=== PATIENT | female | born 1945 | race African-American/Black ===

== ENCOUNTER 2017-11-16 01:45 | Inpatient (IN) | payer OTHER ==
--- NOTE | 2017-11-16 01:50 | PDOC ---
History of Present Illness - General History Source: Patient, Family Exam Limitations: No Limitations - History of Present Illness Initial Comments: 11/16/17 02:06 The patient is a 72 year old female with a significant PMH of stage IV brain CA (recently treated in [place]) and breast CA who presents to the emergency department with slightly slurred speech and inability to ambulate over the past 2 days. The patients daughter reports bringing the patient from [place] to the patients other daughters house, and she noticed that the patient cannot walk or move her left side. The patients daughter also notes a low-grade fever and cough. The patient reports she is not currently experiencing any pain. The patient denies chest pain, shortness of breath, headache and dizziness. Denies chills, nausea, vomit, diarrhea and constipation. Denies dysuria, frequency, urgency and hematuria. Allergies: NKA Past surgical history: None reported. Social history: No reported cigarette, alcohol, or drug use. PCP: Dr. Magen Rodriguez <Daniel Mclean - Last Filed: 11/16/17 03:34> - General History Source: Family <CheyenneAshish - Last Filed: 11/16/17 19:30> - General Stated Complaint: WEAKNESS Time Seen by Provider: 11/16/17 01:49 NIH Stroke Scale - Last Known Well Date/Time & Onset Date Last Known Well: 11/15/17 Time Last Known Well: 00:00 - Initial Evaluation Level of consciousness: Alert Ask patient the month and their age: Answers one correctly Ask patient to open & close eyes; make fist and let go: Obeys both correctly Best gaze (horizontal eye movement): Normal Visual field testing: Partial hemianopia Facial paresis (Show teeth/raise eyebrows/close eyes tight): Normal symmetrical movement Motor Function: Left Arm: No movement Motor Function: Right Arm: Normal (extends arm 90 (or 45) degrees for 10 seconds without drift Motor Function: Left Leg: No movement Motor Function: Right Leg: Normal (extends leg 30 degrees for 5 seconds without drift) Limb Ataxia: Present in one limb Sensory(Use pinprick test arms,legs,trunk,face/side to side): Mild to moderate decrease in sensation Best language (Describe picture, name items, read sentences): Mild to moderate aphasia Dysarthria (read several words): Mild to moderate slurring of words Extinction and Inattention: Inattention or extinction bilaterally to one of the sensory modalities - Total Score NIH Stroke Scale Score: 15 <Ashish Quinn - Last Filed: 11/16/17 19:30> tPA Exclusion checklist 3-4.5h - Time Elapsed Date last known well: 11/15/17 Time last known well: 00:00 Elaspsed time: 1 Day(s) and 19 Hour(s) and 29 Minutes - Exclusion Criteria 3-4.5 hr SBP greater than 185 or DBP greater than 110mmHg despite tx: No Recent IC/spinal surgery,head trauma or stroke<3mos.: No Hx IC hemorrhage, IC neoplasm, AV malformation or aneurysm: No Active internal bleeding: No Blding diathesis(low plt ct, inc PTT,INR>1.7 or use of NOAC): No Symptoms suggest subarachnoid hemorrhage: No CT demonstrates multilobar infarct(>1/3 cerebral hemiphere): No Arterial puncture at noncompressible site in previous 7 days: No Blood glucose concentration less than 50mg/dL (2.7mmol/L): No - Relative Exclusion Criteria 3-4.5 hr Life expectancy <1 yr or severe co-morbid illness: No : No Patient/family refused: No Rapid improvement: No Stroke severity too mild: No Recent acute CA (w/in previous 3 months): No Seizure at onset with postictal residual neuro impairments: No Major surgery or serious trauma w/in previous 14 days: No Recent GI or hemorrhage (w/in previous 21 days): No - Add'l Relative Exclusion 3-4.5 hr Age > 80: No Hx of both diabetes AND prior ischemic stroke: No Taking an oral anticoagulant regardless of INR: No NIHSS >25: No - Ineligibility reason(s) Reasons No tPA given: Outside of window - delayed arrival <Ashish Quinn - Last Filed: 11/16/17 19:30> Past History <Daniel Mclean - Last Filed: 11/16/17 03:34> <Ashish Quinn - Last Filed: 11/16/17 19:30> - Past Medical History Allergies/Adverse Reactions: Allergies Allergy/AdvReac Type Severity Reaction Status Date / Time No Known Allergies Allergy Verified 11/16/17 02:25 Home Medications: Ambulatory Orders Dexamethasone [Decadron -] 4 mg PO BID 11/16/17 Phenytoin Na Extended [Dilantin -] 200 mg PO BID 11/16/17 Sennosides/Docusate Sodium [Senexon-S Tablet] 1 each PO PRN PRN 11/16/17 levETIRAcetam [Keppra -] 1,500 mg PO BID 11/16/17 Review of Systems - Review of Systems Able to Perform ROS?: Yes Comments:: 11/16/17 02:07 CONSTITUTIONAL: Absent: fever, chills, diaphoresis, generalized weakness, malaise, loss of appetite HEENT: Absent: rhinorrhea, nasal congestion, throat pain, throat swelling, difficulty swallowing, mouth swelling, ear pain, eye pain, visual Changes CARDIOVASCULAR: Absent: chest pain, syncope, palpitations, irregular heart rate, lightheadedness , peripheral edema RESPIRATORY: Absent: cough, shortness of breath, dyspnea with exertion, orthopnea, wheezing, stridor, hemoptysis GASTROINTESTINAL: Absent: abdominal pain, abdominal distension, nausea, vomiting, diarrhea, constipation, melena, hematochezia GENITOURINARY: Absent: dysuria, frequency, urgency, hesitancy, hematuria, flank pain, genital pain MUSCULOSKELETAL: Absent: myalgia, arthralgia, joint swelling SKIN: Absent: rash, itching, pallor HEMATOLOGIC/IMMUNOLOGIC: Absent: easy bleeding, easy bruising, lymphadenopathy, frequent infections ENDOCRINE: Absent: unexplained weight gain, unexplained weight loss, heat intolerance, cold intolerance NEUROLOGIC: (+) Inability to ambulate or move left side. Absent: headache, focal paresthesias, dizziness, seizure, mental status changes , bladder or bowel incontinence PSYCHIATRIC: Absent: anxiety, depression, suicidal or homicidal ideation, hallucinations. <Daniel Mclean - Last Filed: 11/16/17 03:34> *Physical Exam - Physical Exam Comments: 11/16/17 02:07 GENERAL: Well developed, well nourished. Awake and alert. No acute distress. HEENT: Normocephalic, atraumatic. PERRLA, EOMI. No conjunctival pallor. Sclera are non- icteric. Moist mucous membranes. Oropharynx is clear. NECK: Supple. Full ROM. No JVD. Carotid pulses 2+ and symmetric, without bruits. No thyromegaly. No lymphadenopathy. CARDIOVASCULAR: Regular rate and rhythm. No murmurs, rubs, or gallops. Distal pulses are 2+ and symmetric. PULMONARY: No evidence of respiratory distress. Lungs clear to auscultation bilaterally. No wheezing, rales or rhonchi. ABDOMINAL: Soft. Non-tender. Non-distended. No rebound or guarding. No organomegaly. Normoactive bowel sounds. MUSCULOSKELETAL Normal range of motion at all joints. No bony deformities or tenderness. No CVA tenderness. EXTREMITIES: No cyanosis. No clubbing. No edema. No calf tenderness. SKIN: Warm and dry. Normal capillary refill. No rashes. No jaundice. NEUROLOGICAL: (+) Slight slurred speech. (+) Complete left upper and lower extremity hemiplegia. 4/5 strength in right upper and right lower extremities. No facial asymmetry. Alert, awake, appropriate. PSYCHIATRIC: Cooperative. Good eye contact. Appropriate mood and affect. <Daniel Mclean - Last Filed: 11/16/17 03:34> Heart Score/ECG Review #1 11/16/17 02:09 Vent rate 94 bpm Normal sinus rhythm Possible left atrial enlargement Septal infarct, age undetermined Abnormal ECG <Daniel Mclean - Last Filed: 11/16/17 03:34> ED Treatment Course - LABORATORY CBC & Chemistry Diagram: 11/16/17 02:00 11/16/17 02:00 <Daniel Mclean - Last Filed: 11/16/17 03:34> - LABORATORY CBC & Chemistry Diagram: 11/16/17 02:00 11/16/17 02:00 <Ashish Quinn - Last Filed: 11/16/17 19:30> Medical Decision Making - Medical Decision Making 11/16/17 03:35 on call Neuro paged, awaiting callback. <Daniel Mclean - Last Filed: 11/16/17 03:34> - Medical Decision Making 11/16/17 19:28 Dr. Quinn: The scribe's documentation has been prepared under my direction and personally reviewed by me in its entirery. I confirm that the note above accurately reflects all work, treatment, procedures, and medical decision making performed by me. <Ashish Quinn - Last Filed: 11/16/17 19:30> *DC/Admit/Observation/Transfer - Attestations Scribe Attestion: 11/16/17 02:07 Documentation prepared by Daniel Mclean, acting as medical office administrator for Ashish Quinn DO. <Daniel Mclean - Last Filed: 11/16/17 03:34> - Discharge Dispostion Admit: Yes <Ashish Quinn - Last Filed: 11/16/17 19:30> Diagnosis at time of Disposition: Cerebrovascular accident (CVA) - Discharge Dispostion Condition at time of disposition: Stable
[2017-11-16 02:25] LABS: INR 1.04 (0.82-1.09); PROTHROMBIN TIME (PATIENT) 11.7 SEC (9.98-11.88)
[2017-11-16] MEDS: SODIUM CHLORIDE 1,000 ML IV SCH ×2 (02:26→09:49)
[2017-11-16 02:27] VITALS: BMI 21.4
[2017-11-16 02:41] LABS: BASO % 0.6 % (0-2.0); HEMATOCRIT 44.7 % (32.4-45.2); HEMOGLOBIN 15.3 GM/dL (10.7-15.3); LYMPH % 20.6 % (8-40); MCH 31.9 pg (25.7-33.7); MCHC 34.2 g/dl (32.0-36.0); MEAN CELL VOLUME 93.3 fl (80-96); MONO % 12.2 % (3.8-10.2); NEUT % 66.6 % (42.8-82.8); RBC 4.79 M/mm3 (3.60-5.2); RDW 13.6 % (11.6-15.6)
[2017-11-16 02:52] LABS: ALBUMIN 3.7 g/dl (3.4-5.0); ANION GAP 10 (8-16); BLOOD UREA NITROGEN 11 mg/dL (7-18); CALCIUM 8.3 mg/dL (8.5-10.1); CHLORIDE 106 mmol/L (98-107); CHOLESTEROL 231 mg/dL (50-200); CO2 29 mmol/L (21-32); CREATININE 0.8 mg/dL (0.55-1.02); GLUCOSE,RANDOM 96 mg/dL (74-106); LDL CHOLESTEROL (ONLY SJRH) 102 mg/dL (5-100); SGOT/AST 18 U/L (15-37); SGPT/ALT 24 U/L (12-78); SODIUM 145 mmol/L (136-145); TOT PROT 7.1 g/dl (6.4-8.2); TRIGLYCERIDES 65 mg/dL (35-160)
[2017-11-16 02:53] LABS: ALK PHOS 109 U/L (45-117); BILIRUBIN,TOTAL < 0.1 mg/dL (0.2-1.0); HDL CHOLESTEROL 118 mg/dL (40-60)
[2017-11-16] MEDS ORDERED: ONDANSETRON 4 MG/2 ML VIAL IVPUSH STA (03:11)
[2017-11-16] MEDS ORDERED: morphine CARPU-JECT 2 MG/1 ML DISP.SYRIN IVPUSH ONE (03:11)
[2017-11-16] MEDS ORDERED: ACETAMINOPHEN 1000 MG/100 ML VIAL (NON FORMULARY) IVPB ONE (03:11)
[2017-11-16] MEDS ORDERED: MORPHINE SULFATE 10 MG/1 ML *VIAL ONE (03:18)
[2017-11-16] MEDS ORDERED: ONDANSETRON 4 MG/2 ML VIAL ONE (03:18)
[2017-11-16] MEDS ORDERED: ACETAMINOPHEN INJECTION 100 ML IVPB ONE (03:18)
[2017-11-16] MEDS ORDERED: levETIRAcetam 500 MG/5 ML INJECTION VIAL IVPB ONE ×2 (03:18→03:36)
[2017-11-16] MEDS ORDERED: PHENYTOIN SODIUM 100 MG/2 ML VIAL IVPB ONE (03:19)
[2017-11-16] MEDS ORDERED: ASPIRIN 81 MG CHEWABLE TABLETS PO ONE (03:30)
[2017-11-16] MEDS ORDERED: PHENYTOIN SODIUM 100 MG/2 ML VIAL ONE (03:36)
[2017-11-16] MEDS ORDERED: ASPIRIN COATED 81 MG TABLET.EC ONE (03:37)
[2017-11-16 03:57] LABS: MEAN PLT VOLUME 7.2 fl (7.5-11.1)
[2017-11-16 03:58] LABS: PLATELET COUNT 162 K/MM3 (134-434)
--- NOTE | 2017-11-16 04:18 | PN ---
Teaching Attending Note Name of Resident: Bassem Iyer ATTENDING PHYSICIAN STATEMENT I saw and evaluated the patient. I reviewed the resident's note and discussed the case with the resident. I agree with the resident's findings and plan as documented. SUBJECTIVE: 72 F w pmhx. of Brain ca and breasr ca who presents with slurred speech and inability to amulate. This has been happening over coarse of 2 days. also with fever as per daughter and cough. Also pt. cannot move L. side. Upon arrival to bedside, no family present. Pt. cannot speak. OBJECTIVE: Physical: VS: Vital Signs Period Temp Pulse Resp BP Sys/Levin Pulse Ox Last 24 Hr 100.5 F 91 14 169/92 98 GEN: NAD, Resting in bed, AA0X0 HEENT: NCAT, PERRL, Throat w/o erythema or exudates, L. Facial droop CARD: RRR S1, S2 RESP: CTAB ABD: Bsx4, Surgical scar EXT: - C/C/E, Pt. cannot move L. side NEURO: Cannot verbalize, Cannot move R. Side CBCD WBC 5.0 K/mm3 (4.0-10.0) 11/16/17 02:00 RBC 4.79 M/mm3 (3.60-5.2) 11/16/17 02:00 Hgb 15.3 GM/dL (10.7-15.3) 11/16/17 02:00 Hct 44.7 % (32.4-45.2) 11/16/17 02:00 MCV 93.3 fl (80-96) 11/16/17 02:00 MCHC 34.2 g/dl (32.0-36.0) 11/16/17 02:00 RDW 13.6 % (11.6-15.6) 11/16/17 02:00 Plt Count 162 K/MM3 (134-434) 11/16/17 02:00 MPV 7.2 fl (7.5-11.1) L 11/16/17 02:00 CMP Sodium 145 mmol/L (136-145) 11/16/17 02:00 Potassium 4.0 mmol/L (3.5-5.1) 11/16/17 02:00 Chloride 106 mmol/L (98-107) 11/16/17 02:00 Carbon Dioxide 29 mmol/L (21-32) 11/16/17 02:00 Anion Gap 10 (8-16) 11/16/17 02:00 BUN 11 mg/dL (7-18) 11/16/17 02:00 Creatinine 0.8 mg/dL (0.55-1.02) 11/16/17 02:00 Creat Clearance w eGFR > 60 (>60) 11/16/17 02:00 Random Glucose 96 mg/dL (74-106) 11/16/17 02:00 Calcium 8.3 mg/dL (8.5-10.1) L 11/16/17 02:00 Total Bilirubin < 0.1 mg/dL (0.2-1.0) L 11/16/17 02:00 AST 18 U/L (15-37) 11/16/17 02:00 ALT 24 U/L (12-78) 11/16/17 02:00 Alkaline Phosphatase 109 U/L (45-117) 11/16/17 02:00 Total Protein 7.1 g/dl (6.4-8.2) 11/16/17 02:00 Albumin 3.7 g/dl (3.4-5.0) 11/16/17 02:00 CARDIAC ENZYMES Creatine Kinase 70 IU/L (26-192) 11/16/17 02:00 Troponin I < 0.02 ng/ml (0.00-0.05) 11/16/17 02:00 CT HEAD: R. Craniatomy, encephalopmalacia possible chronic calcifications cannot exclude acute hematomas, no aucte infarc 11/16/17 02:09 Vent rate 94 bpm Normal sinus rhythm Possible left atrial enlargement Septal infarct, age undetermined Abnormal ECG ASSESSMENT AND PLAN: 72 F with hx. of brain/breast ca with inability to move her L.side and slurred speech, 1.) CVA/TIA - MRI Brain wo con - ? Acute Hematomas vs. calcifications, FU for final read on CT - Echo/Carotd US - TSH, B12, Folate, ESR - Neuro Consult - Lipid Panel/A1c - PT/OT - IVF gentle - Statin - NPO until speech and swallow - ? Acute Hematomas on CT- Hold off on ASA until repeat 2.) Hx. of Brain Ca - Obtain records 3.) Dvt Ppx - SCDS Place in Stroke Tele
--- NOTE | 2017-11-16 04:22 | HP ---
CHIEF COMPLAINT: slurred speech, L sided weakness x 2 days PCP: HISTORY OF PRESENT ILLNESS: 72 y/o F with PMH stage 4 brain CA (Tx [place]), breast CA, past CVA s/p R sided craniotomy (with residual L sided weakness), who presents to the ED with slurred speech and increased L sided weakness over the past two days. Unable to obtain adequate hx from patient. As per ED staff, pt was in [place] with one of her daughters and was dropped off at her other daughter's home. She had been unable to ambulate for two days, and also had slurred speech and increased weakness in her LUE and LLE. During this time, pt has also c/o subjective fever and productive cough. Pt denied other physical complaints such as SOB, or changes in urinary or bowel function. ER course was notable for: (1) Febrile 100.5F (2) Head CT non-con: cannot exclude tiny acute hematomas (3) Aspirin (4) Keppra, dilantin (5) Morphine, zofran Recent Travel: none PAST MEDICAL HISTORY: as above PAST SURGICAL HISTORY: s/p R sided craniotomy Social History: Smoking:denies Alcohol: denies Drugs: denies Family History: unable to obtain d/t pt condition Allergies No Known Allergies Allergy (Verified 11/16/17 02:25) HOME MEDICATIONS: Home Medications Medication Instructions Recorded Dexamethasone [Decadron -] 4 mg PO BID 11/16/17 Phenytoin Na Extended [Dilantin -] 200 mg PO BID 11/16/17 Sennosides/Docusate Sodium 1 each PO PRN PRN 11/16/17 [Senexon-S Tablet] levETIRAcetam [Keppra -] 1,500 mg PO BID 11/16/17 REVIEW OF SYSTEMS CONSTITUTIONAL: +fever Absent: fever, chills, diaphoresis, generalized weakness, malaise, loss of appetite, weight change HEENT: Absent: rhinorrhea, nasal congestion, throat pain, throat swelling, difficulty swallowing, mouth swelling, ear pain, eye pain, visual changes CARDIOVASCULAR: Absent: chest pain, syncope, palpitations, irregular heart rate, lightheadedness , peripheral edema RESPIRATORY: +cough Absent: cough, shortness of breath, dyspnea with exertion, orthopnea, wheezing, stridor, hemoptysis GASTROINTESTINAL: Absent: abdominal pain, abdominal distension, nausea, vomiting, diarrhea, constipation, melena, hematochezia GENITOURINARY: Absent: dysuria, frequency, urgency, hesitancy, hematuria, flank pain, genital pain MUSCULOSKELETAL: Absent: myalgia, arthralgia, joint swelling, back pain, neck pain SKIN: Absent: rash, itching, pallor HEMATOLOGIC/IMMUNOLOGIC: Absent: easy bleeding, easy bruising, lymphadenopathy, frequent infections ENDOCRINE: Absent: unexplained weight gain, unexplained weight loss, heat intolerance, cold intolerance NEUROLOGIC: +LUE, LLE weakness, focal weakness Absent: headache, focal weakness or paresthesias, dizziness, unsteady gait, seizure, mental status changes, bladder or bowel incontinence PSYCHIATRIC: Absent: anxiety, depression, suicidal or homicidal ideation, hallucinations. PHYSICAL EXAMINATION Vital Signs - 24 hr 11/16/17 02:25 Temperature 100.5 F H Pulse Rate 91 H Respiratory 14 Rate Blood Pressure 169/92 O2 Sat by Pulse 98 Oximetry (%) GENERAL: Resting in bed, extremely lethargic. In no acute distress. Unable to answer questions HEAD: scar from past craniotomy - R EYES: Pupils with sluggish rxn to light, extraocular movements intact, sclera anicteric EARS, NOSE, THROAT: Ears normal, nares patent, oropharynx clear without exudates NECK: Normal range of motion, supple LUNGS: coarse breath sounds appreciated b/l. No accessory muscle use. HEART: tachycardic rate and rhythm, normal S1 and S2 without murmur, rub or gallop. ABDOMEN: Soft, nontender, not distended, normoactive bowel sounds, no guarding, no rebound, no masses. + ventral scar . UPPER EXTREMITIES: 2+ radial pulses. No cyanosis. No clubbing. No peripheral edema. LOWER EXTREMITIES: 2+ posterior tibial pulses, . No calf tenderness. No peripheral edema. NEUROLOGICAL: difficult to assess as pt unable to answer questions. However able to follow commands. Motor strength 4/5 RUE, RLE. 2/5 LUE, LLE. Sensation intact. Laboratory Results 11/16/17 11/16/17 11/16/17 01:55 02:00 02:00 WBC 5.0 RBC 4.79 Hgb 15.3 Hct 44.7 MCV 93.3 MCH 31.9 MCHC 34.2 RDW 13.6 Plt Count 162 MPV 7.2 L Neutrophils % 66.6 Lymphocytes % 20.6 Monocytes % 12.2 H Eosinophils % 0.0 Basophils % 0.6 PT with INR 11.70 INR 1.04 Sodium Random Glucose Lactic Acid 1.9 Antibody Screen 11/16/17 11/16/17 11/16/17 02:00 02:20 02:45 Eosinophils % PT with INR INR Sodium 145 Potassium 4.0 Chloride 106 Carbon Dioxide 29 Anion Gap 10 BUN 11 Creatinine 0.8 Creat Clearance w eGFR > 60 POC Glucometer 95.33333 Random Glucose 96 Lactic Acid Calcium 8.3 L Total Bilirubin < 0.1 L AST 18 ALT 24 Alkaline Phosphatase 109 Creatine Kinase 70 Troponin I < 0.02 Total Protein 7.1 Albumin 3.7 Triglycerides 65 Cholesterol 231 H Total LDL Cholesterol 102 H HDL Cholesterol 118 H IMAGING -CT head - non con: initial report- encephalomalacia R parietal lobe extending into R internal capsule. Few small hyperdensities near the areas of encephalomalacia may represent chronic calcifications, but cannot exclude tiny acute hematomas. Extensive white matter hypodensity R hemisphere, question post- treatment changes. No acute territorial infarct. Age related involutional changes. Essentially clear visualized paranasal sinuses. Will await official report ASSESSMENT/PLAN: 72 y/o F with PMH stage 4 brain CA (Tx [place]), breast CA, past CVA s/p R sided craniotomy (with residual L sided weakness), who presents to the ED with slurred speech and increased L sided weakness over the past two days. Pt admitted to [facility] for further evaluation of CVA. #CVA -With initial slurred speech, increased L sided weakness over the past 2 days -Neuro checks q2h -Elevate HOB -PT evaluation -Seizure precautions - padding -Speech & swallow eval -Started on lipitor 40mg PO qHS -Avoid aspirin, as pt with potential hematomas -F/u TSH, Folate, B12, ESR -F/u ECHO -F/u Carotid US -F/u A1c -F/u MRI brain w/o contrast for further eval #Hx stage 4 brain CA, breast CA -Will need old records - [place] #F/E/N -Gentle hydration IVF 42 cc/hr -Continue to monitor electrolytes. Next CBC, BMP for 3/15 d/t recent bleed -NPO until speech and swallow eval #PPX DVT: SCD's #Dispo Continued monitoring on stroke tele Visit type - Emergency Visit Emergency Visit: Yes Care time: The patient presented to the Emergency Department on the above date and was hospitalized for further evaluation of their emergent condition. - New Patient This patient is new to me today: Yes Date on this admission: 11/16/17 - Critical Care Critical Care patient: No Hospitalist Screening - Colonoscopy Questionnaire Colonoscopy Questionnaire: Colonoscopy Questionnaire - Patient: 50 - 75 years old and never had a screening colonoscopy: Unknown History of colon or rectal polyps, or CA: Unknown History of IBD, Crohn's disease or UC: Unknown History of abdominal radiation therapy as a child: Unknown - Relative: 1 with colon or rectal CA, or polyps at age 60 or younger: Unknown Colon or rectal CA diagnosed at age 45 or younger: Unknown Multiple relatives with colon or rectal CA: Unknown - Outcome: Screening Result: Negative Screen
[2017-11-16 05:51] LABS: URINE APPEARANCE CLEAR; URINE BILIRUBIN NEGATIVE (NEGATIVE); URINE BLOOD NEGATIVE (NEGATIVE); URINE COLOR STRAW; URINE GLUCOSE (UA) NEGATIVE (NEGATIVE); URINE KETONE NEGATIVE (NEGATIVE); URINE LEUK ESTERASE NEGATIVE (NEGATIVE); URINE NITRITE NEGATIVE (NEGATIVE); URINE PROTEIN NEGATIVE (NEGATIVE); URINE UROBILINOGEN NEGATIVE mg/dL (0.2-1.0)
[2017-11-16] MEDS: ATORVASTATIN CA 40 MG TABLET (FP) PO SCH (09:44)
--- NOTE | 2017-11-16 10:32 | CON.NEURO ---
Consult - History of Present Illness History of Present Illness: 72 y/o F with PMH stage 4 brain CA (Tx [place]), breast CA, past CVA s/p R sided craniotomy (with residual L sided weakness), who presents to the ED with slurred speech and increased L sided weakness over the past two days. Unable to obtain adequate hx from patient. As per ED staff, pt was in [place] with one of her daughters and was dropped off at her other daughter's home. She had been unable to ambulate for two days, and also had slurred speech and increased weakness in her LUE and LLE. During this time, pt has also c/o subjective fever and productive cough. Pt denied other physical complaints such as SOB, or changes in urinary or bowel function. pt sleepy and poorly arousable. on seizure RX although no clear recent seziure. CT HD : IMPRESSION: Lesions in the right frontal lobe and right gangliocapsular region are probably metastatic lesions given the provided clinical history of stage IV breast cancer. Extensive surrounding vasogenic edema with right cerebral sulcal effacement and 1-2 mm right to left midline shift. No herniation pattern. No hydrocephalus. Further evaluation with contrast-enhanced MRI brain is recommended. These findings were discussed with Dr. Sommers at approximately 10: 00 AM on 11/16/2017. - History Source History Provided By: Medical Record - Alcohol/Substance Use Hx Alcohol Use: No - Smoking History Smoking history: Never smoked Have you smoked in the past 12 months: No Home Medications - Allergies Allergies/Adverse Reactions: Allergies Allergy/AdvReac Type Severity Reaction Status Date / Time No Known Allergies Allergy Verified 11/16/17 02:25 - Home Medications Home Medications: Ambulatory Orders Dexamethasone [Decadron -] 4 mg PO BID 11/16/17 Phenytoin Na Extended [Dilantin -] 200 mg PO BID 11/16/17 Sennosides/Docusate Sodium [Senexon-S Tablet] 1 each PO PRN PRN 11/16/17 levETIRAcetam [Keppra -] 1,500 mg PO BID 11/16/17 Physical Exam-Neuro Vital Signs: Vital Signs Temperature 98.6 F 11/16/17 08:52 Pulse Rate 80 11/16/17 08:52 Respiratory Rate 16 11/16/17 08:52 Blood Pressure 135/83 11/16/17 08:52 O2 Sat by Pulse Oximetry (%) 97 11/16/17 08:52 Labs: CBC, BMP 11/16/17 02:00 11/16/17 02:00 INR, PTT INR 1.04 (0.82-1.09) 11/16/17 02:00 - Neuro Exam Level Of Consciousness: Yes: Sedated (pt sleepy , and poorly arousable , nonverbal , does not answer name or follow commands, left gaze, and left hemiparesis ), Stuporous Imaging - Results Cat Scan: Report Reviewed, Image Reviewed Problem List - Problems (1) Brain malignant neoplasm Code(s): C71.9 - MALIGNANT NEOPLASM OF BRAIN, UNSPECIFIED (2) Left hemiparesis Code(s): G81.94 - HEMIPLEGIA, UNSPECIFIED AFFECTING LEFT NONDOMINANT SIDE (3) Cerebrovascular accident (CVA) Code(s): I63.9 - CEREBRAL INFARCTION, UNSPECIFIED Assessment/Plan 72 y/o F with PMH stage 4 brain CA (Tx [place]), breast CA, past CVA s/p R sided craniotomy (with residual L sided weakness), who presents to the ED with slurred speech and increased L sided weakness over the past two days. Unable to obtain adequate hx from patient. As per ED staff, pt was in [place] with one of her daughters and was dropped off at her other daughter's home. She had been unable to ambulate for two days, and also had slurred speech and increased weakness in her LUE and LLE. During this time, pt has also c/o subjective fever and productive cough. Pt denied other physical complaints such as SOB, or changes in urinary or bowel function. pt sleepy and poorly arousable. on seizure RX although no clear recent seizure. CT HD : IMPRESSION: Lesions in the right frontal lobe and right gangliocapsular region are probably metastatic lesions given the provided clinical history of stage IV breast cancer. Extensive surrounding vasogenic edema with right cerebral sulcal effacement and 1-2 mm right to left midline shift. No herniation pattern. No hydrocephalus. Further evaluation with contrast-enhanced MRI brain is recommended. encephalopathy-- ? from progression of brain cancer vs seizure vs metabolic vs fever give decardon 10mg x1 and increase to 4mg q6 MRI BRAIN WITH BART on dilantin 200BID and [id number]-- check dilantin level fever [place] old records given poor mental state low threshold for ICU care gaols of care to be discussed with family Dr Browne
[2017-11-16] MEDS ORDERED: DEXAMETHASONE SOD PHOSPHATE 4 MG/1 ML VIAL IVPB ONE (10:41)
--- NOTE | 2017-11-16 10:49 | EKG ---
Test Reason : Blood Pressure : / mmHG Vent. Rate : 094 BPM Atrial Rate : 094 BPM P-R Int : 152 ms QRS Dur : 088 ms QT Int : 330 ms P-R-T Axes : 065 085 065 degrees QTc Int : 412 ms NORMAL SINUS RHYTHM POSSIBLE LEFT ATRIAL ENLARGEMENT SEPTAL INFARCT , AGE UNDETERMINED ABNORMAL ECG NO PREVIOUS ECGS AVAILABLE Confirmed by ANKUR CASTAÑEDA MD ([id number]) on 11/16/2017 10:49:01 AM Referred By: Confirmed By:AKNUR CASTAÑEDA MD
--- NOTE | 2017-11-16 11:01 | PN ---
Physical Exam: SUBJECTIVE: Patient seen and examined in AM. lethargic, poorly responsive to tactile/verbal stimuli. OBJECTIVE: Vital Signs Period Temp Pulse Resp BP Sys/Levin Pulse Ox Last 24 Hr 98.6 F-100.5 F 71-91 14-18 127-169/74-92 97-100 GENERAL: lying in bed, lethargic, non-verbal, responding to simple commands HEENT: PERRL, sclera anicteric, conjunctiva clear, oropharynx clear without exudates, MMM NECK: supple, no cervical LAD LUNGS: CTAB HEART: rrr, normal s1/s2, no m/r/g ABDOMEN: Soft, nontender, nondistended, normoactive bowel sounds EXTREMITIES: 2+ DP pulses, wwp, no edema NEUROLOGICAL: opens eyes to verbal/tactile stimulation, left facial droop, slurred speech, L hemiparesis CBC, BMP 11/16/17 02:00 11/16/17 02:00 IMAGING: Head CT: MPRESSION: Lesions in the right frontal lobe and right gangliocapsular region are probably metastatic lesions given the provided clinical history of stage IV breast cancer. Extensive surrounding vasogenic edema with right cerebral sulcal effacement and 1-2 mm right to left midline shift. No herniation pattern. No hydrocephalus. Further evaluation with contrast-enhanced MRI brain is recommended. Active Medications Generic Name Dose Route Start Last Admin Trade Name Freq PRN Reason Stop Dose Admin Atorvastatin Calcium 40 mg 11/16/17 10:00 11/16/17 09:44 Lipitor - PO Not Given DAILY LENNY Dexamethasone Sodium Phosphate 10 mg 11/16/17 10:41 Decadron Injection - IVPB 11/16/17 10:42 ONCE ONE Sodium Chloride 1,000 mls @ 42 mls/hr 11/16/17 02:00 11/16/17 09:49 Normal Saline - IV 42 mls/hr ASDIR LENNY Administration Levetiracetam 1,500 mg 11/16/17 10:45 Keppra Injection - IVPB BID LENNY Phenytoin Sodium 200 mg 11/16/17 10:45 Dilantin Injection - IVPB BID LENNY ASSESSMENT/PLAN: 72yo F with PMH GBM s/p resection annd chemoRT (Tx [place], RT completed March 2017 per [facility] records, breast Ca who was brought to ED by daughter after increasing L sided weakness and slurred speech for past several days of unclear etiology. DDX includes POD vs CVA vs infectious process. #worsening L sided hemiparesis, slurred speech and somnolence -Neurology consulted (Dr. Browne) -Neuro checks q2h, aspiration precautions, elevate HOB -r/o CVA: f/u MRI, carotid dopplers, ECHO, lipid panel, CUSTOMER SERVICE REPRESENTATIVE eval and PT eval -Seizure precautions - padding -Started on lipitor 40mg PO qH -F/u MRI brain with & w/o contrast for further eval #fever, CXR neg, UA neg, no leukocytosis, -f/u blood cultures, UA -Tylenol 1 gm IV PRN #Hx of GBM -Heme/Onc consulted -Neurosx consulted #F/E/N: NNS@42 / lytes wnl / NPO, await CUSTOMER SERVICE REPRESENTATIVE eval #PPX -DVT SCD's #Dispo:tele Full code, per daughter Naren d/w Dr. Jil Garcia MD PGY1 - Internal Medicine Visit type - Emergency Visit Emergency Visit: No - New Patient This patient is new to me today: Yes Date on this admission: 11/16/17 - Critical Care Critical Care patient: No
[2017-11-16] MEDS: levETIRAcetam 500 MG/5 ML INJECTION VIAL IVPB SCH ×2 (12:00→22:14)
[2017-11-16] MEDS ORDERED: DEXAMETHASONE SOD PHOSPHATE 4 MG/1 ML VIAL IVPUSH ONE (12:00)
[2017-11-16] MEDS: PHENYTOIN SODIUM 100 MG/2 ML VIAL IVPB SCH ×2 (12:30→23:46)
--- NOTE | 2017-11-16 12:55 | CONSULT ---
Admitting History and Physical - Primary Care Physician PCP: Octavio Ley - Admission History of Present Illness: Per EMR: History of Present Illness: 72 y/o F with PMH stage 4 brain CA (Tx [place]), breast CA, past CVA s/p R sided craniotomy (with residual L sided weakness), who presents to the ED with slurred speech and increased L sided weakness over the past two days. Unable to obtain adequate hx from patient. As per ED staff, pt was in [place] with one of her daughters and was dropped off at her other daughter's home. She had been unable to ambulate for two days, and also had slurred speech and increased weakness in her LUE and LLE. During this time, pt has also c/o subjective fever and productive cough. Pt denied other physical complaints such as SOB, or changes in urinary or bowel function. pt sleepy and poorly arousable. on seizure RX although no clear recent seziure. . Per Neurology :encephalopathy-- ? from progression of brain cancer vs seizure vs metabolic vs fever History Source: Medical Record Limitations to Obtaining History: Clinical Condition - Smoking History Smoking history: Never smoked Have you smoked in the past 12 months: No - Alcohol/Substance Use Hx Alcohol Use: No History - Admission Reason For Visit: CVA (SROKE BED) - Diagnostics CT Scan: Report Reviewed (CT HD : IMPRESSION: Lesions in the right frontal lobe and right gangliocapsular region are probably metastatic lesions given the provided clinical history of stage IV breast cancer. Extensive surrounding vasogenic edema with right cerebral sulcal effacement and 1-2 mm right to left midline shift. No herniation pattern. No hydrocephalus. Further evaluation with contrast-enhanced MRI brain is recommended) - General Mental Status: Lethargic Speech Evaluation - Communication Primary Language: [id number] Communication: Yes: Non-Communicable (vocal, moaning) Oral Expression Ability: Yes: Non-Verbal - Language/Auditory Comprehension Observation: Able to respond to yes/no queries: No, Comprehends Conversational Speech: No - Language/Verbal Expression Able to Respond to Simple Queries: Yes: Severely Impaired - Swallow Evaluation/Bedside Assessment Current Nutritional Intake: NPO Laryngeal Movement: Unable to Palpate Recommendations - Speech Evaluation, Impression/Plan Impression: Opens eyes to name, briefly. Follows no commands. Vocal- moans. No verbalizations.Lethargic.
[2017-11-16] MEDS ORDERED: ACETAMINOPHEN 1000 MG/100 ML VIAL (NON FORMULARY) IVPB PRN (14:30)
--- NOTE | 2017-11-16 16:03 | PN ---
Teaching Attending Note Name of Resident: Alberta Garcia ATTENDING PHYSICIAN STATEMENT I saw and evaluated the patient. I reviewed the resident's note and discussed the case with the resident. I agree with the resident's findings and plan as documented. SUBJECTIVE: Patient opens eyes and follows simple commands. OBJECTIVE: Vital Signs Period Temp Pulse Resp BP Sys/Levin Pulse Ox Last 24 Hr 98.6 F-102.5 F 71-95 14-18 127-169/74-92 97-100 HEART: S1S2, RRR LUNGS: Clear ABDOMEN: Soft, non-distended, normal BS EXTREMITIES: No edema NEUROLOGICAL: Opens eyes, speech slurred, left facial droop, moving RUE/RLE Laboratory Results - last 24 hr 11/16/17 11/16/17 11/16/17 01:55 02:00 02:00 WBC 5.0 RBC 4.79 Hgb 15.3 Hct 44.7 MCV 93.3 MCH 31.9 MCHC 34.2 RDW 13.6 Plt Count 162 MPV 7.2 L Neutrophils % 66.6 Lymphocytes % 20.6 Monocytes % 12.2 H Eosinophils % 0.0 Basophils % 0.6 ESR PT with INR 11.70 INR 1.04 Sodium Potassium Chloride Carbon Dioxide Anion Gap BUN Creatinine Creat Clearance w eGFR POC Glucometer Random Glucose Lactic Acid 1.9 Calcium Total Bilirubin AST ALT Alkaline Phosphatase Creatine Kinase Troponin I Total Protein Albumin Triglycerides Cholesterol Total LDL Cholesterol HDL Cholesterol Vitamin B12 TSH Urine Color Urine Appearance Urine pH Ur Specific [place] Urine Protein Urine Glucose (UA) Urine Ketones Urine Blood Urine Nitrite Urine Bilirubin Urine Urobilinogen Ur Leukocyte Esterase Anti-A Titer Blood Type Antibody Screen 11/16/17 11/16/17 11/16/17 02:00 02:20 02:45 WBC RBC Hgb Hct MCV MCH MCHC RDW Plt Count MPV Neutrophils % Lymphocytes % Monocytes % Eosinophils % Basophils % ESR PT with INR INR Sodium 145 Potassium 4.0 Chloride 106 Carbon Dioxide 29 Anion Gap 10 BUN 11 Creatinine 0.8 Creat Clearance w eGFR > 60 POC Glucometer [id number] Random Glucose 96 Lactic Acid Calcium 8.3 L Total Bilirubin < 0.1 L AST 18 ALT 24 Alkaline Phosphatase 109 Creatine Kinase 70 Troponin I < 0.02 Total Protein 7.1 Albumin 3.7 Triglycerides 65 Cholesterol 231 H Total LDL Cholesterol 102 H HDL Cholesterol 118 H Vitamin B12 TSH Urine Color Urine Appearance Urine pH Ur Specific [place] Urine Protein Urine Glucose (UA) Urine Ketones Urine Blood Urine Nitrite Urine Bilirubin Urine Urobilinogen Ur Leukocyte Esterase Anti-A Titer Cancelled Blood Type Cancelled Antibody Screen Cancelled 11/16/17 11/16/17 11/16/17 05:34 05:38 05:38 WBC RBC Hgb Hct MCV MCH MCHC RDW Plt Count MPV Neutrophils % Lymphocytes % Monocytes % Eosinophils % Basophils % ESR Cancelled PT with INR INR Sodium Potassium Chloride Carbon Dioxide Anion Gap BUN Creatinine Creat Clearance w eGFR POC Glucometer Random Glucose Lactic Acid Calcium Total Bilirubin AST ALT Alkaline Phosphatase Creatine Kinase Troponin I Total Protein Albumin Triglycerides Cholesterol Total LDL Cholesterol HDL Cholesterol Vitamin B12 776 TSH 4.80 H Urine Color Straw Urine Appearance Clear Urine pH 8.0 Ur Specific [place] 1.010 Urine Protein Negative Urine Glucose (UA) Negative Urine Ketones Negative Urine Blood Negative Urine Nitrite Negative Urine Bilirubin Negative Urine Urobilinogen Negative Ur Leukocyte Esterase Negative Anti-A Titer Blood Type Antibody Screen 11/16/17 09:50 WBC RBC Hgb Hct MCV MCH MCHC RDW Plt Count MPV Neutrophils % Lymphocytes % Monocytes % Eosinophils % Basophils % ESR 4 PT with INR INR Sodium Potassium Chloride Carbon Dioxide Anion Gap BUN Creatinine Creat Clearance w eGFR POC Glucometer Random Glucose Lactic Acid Calcium Total Bilirubin AST ALT Alkaline Phosphatase Creatine Kinase Troponin I Total Protein Albumin Triglycerides Cholesterol Total LDL Cholesterol HDL Cholesterol Vitamin B12 TSH Urine Color Urine Appearance Urine pH Ur Specific [place] Urine Protein Urine Glucose (UA) Urine Ketones Urine Blood Urine Nitrite Urine Bilirubin Urine Urobilinogen Ur Leukocyte Esterase Anti-A Titer Blood Type Antibody Screen Current Medications Generic Name Dose Route Start Last Admin Trade Name Freq PRN Reason Stop Dose Admin Acetaminophen 1,000 mg 11/16/17 14:30 11/16/17 14:37 Ofirmev Injection - IVPB 1,000 mg Q6H PRN Administration FEVER Atorvastatin Calcium 40 mg 11/16/17 10:00 11/16/17 09:44 Lipitor - PO Not Given DAILY LENNY Sodium Chloride 1,000 mls @ 42 mls/hr 11/16/17 02:00 11/16/17 09:49 Normal Saline - IV 42 mls/hr ASDIR LENNY Administration Levetiracetam 1,500 mg 11/16/17 10:45 11/16/17 12:00 Keppra Injection - IVPB 1,500 mg BID LENNY Administration Phenytoin Sodium 200 mg 11/16/17 10:45 11/16/17 12:30 Dilantin Injection - IVPB 200 mg BID LENNY Administration ASSESSMENT AND PLAN: This is a 72 year old woman with a history of breast cancer with brain metastases who presented to the ED with slurred speech and inability to move her left side. 1. Left hemiparesis and dysarthria - Possibly secondary to acute CVA, brain metastases - MRI of brain - Continue [place] 2. Breast cancer with metastases to brain
[2017-11-16] MEDS ORDERED: PIPERACIL/TAZOB 3.375 GM 3.375 GM/50 ML PREMIX IVPB ONE (17:02)
[2017-11-16] MEDS ORDERED: PIPERACILLIN/TAZOB 3.375 GM 3.375 GM in DEXTROSE 5%-WATER - 50 ML IVPB ONE (17:30)
[2017-11-16] MEDS ORDERED: PT OWN MED DRAWER 7, Y5N ONE (18:47)
[2017-11-16] MEDS ORDERED: PNEUMOC 13-VAL CONJ-DIP CRM/PF 0.5 ML DISP.SYRIN IM ONE (20:00)
[2017-11-16] MEDS ORDERED: DEXAMETHASONE SOD PHOSPHATE 20 MG/5 ML VIAL IVPB SCH (21:00)
[2017-11-16] MEDS ORDERED: DEXAMETHASONE SOD PHOSPHATE 4 MG/1 ML VIAL IVPB SCH (21:47)
[2017-11-16] MEDS: DEXAMETHASONE SOD PHOSPHATE 4 MG/1 ML VIAL IVPB SCH (22:09)
[2017-11-17] MEDS: SODIUM CHLORIDE 1,000 ML IV SCH ×2 (03:47→21:54)
[2017-11-17] MEDS: DEXAMETHASONE SOD PHOSPHATE 4 MG/1 ML VIAL IVPB SCH ×4 (03:47→21:53)
[2017-11-17 06:49] LABS: BASO % 0.2 % (0-2.0); HEMATOCRIT 40.3 % (32.4-45.2); HEMOGLOBIN 13.8 GM/dL (10.7-15.3); LYMPH % 15.2 % (8-40); MCHC 34.1 g/dl (32.0-36.0); MEAN CELL VOLUME 93.6 fl (80-96); MEAN PLT VOLUME 7.2 fl (7.5-11.1); MONO % 6.1 % (3.8-10.2); NEUT % 78.5 % (42.8-82.8); PLATELET COUNT 158 K/MM3 (134-434); RBC 4.31 M/mm3 (3.60-5.2); RDW 13.2 % (11.6-15.6); WHITE BLOOD COUNT 7.8 K/mm3 (4.0-10.0)
--- NOTE | 2017-11-17 08:02 | PN ---
Progress Note (short form) - Note Progress Note: NEUROSURGERY H/o "brain CA" (treated in [place]), breast CA, past CVA s/p R sided craniotomy with L hemiparesis presented with progressive paresis and altered mental status. "I want to go home" PE: Tmax 99.6, VSS Conversant, pleasant HEENT- NC/AT; Neck- supple; Cor- RR; Lungs- CTA B; Abd- benign; Ext- no sign of DVT Speech mostly fluent CN_ intact except minimal L facial assymmetry and L tongue deviation; Motor- dense L hemiparesis 2/5; Sensation- grossly intact; DTR-1+ CT scan- R hemipheric hypodensity, R lateral frontal craniotomy; no acute bleed Brain MRI- R lateral frontal> parietal 4 x4 x4.5 cm multilobulated rim enhancing lesion with associated vasogenic edema and gliosis, mild mass effect, some ependymal wall (lat ventricle) enhancement; no HCP Prior path- GBM Extensive malignant R lateral frontal neoplasm, GBM Obtain treatment records if possible, though pt is probably best cared for by the recent treating team which performed the surgery and delivered adjuvant therapy Imaging findings could be result of combination of parenchymal neoplasm, post- surgical and post-RT changes The tumor is in eloquent area and is not fully resectable Prognosis is poor for jail functional survival, as patient is 11 months after surgery and likely adjuvant tx already; surgery will likely cause significant neurological morbidity and will unlikely prolong functional survival Cont Decadron and dilantin for now; can taper decadron down to 4 mg bid Check dilantin level and ascertain it is therapeutic
--- NOTE | 2017-11-17 08:07 | PN ---
Physical Exam: SUBJECTIVE: Patient seen and examined. No events overnight; AM - much more awake , alert, and conversant. Offers no complaints; denies fever, chills, CP, abdominal pain. OBJECTIVE: Vital Signs Period Temp Pulse Resp BP Sys/Levin Pulse Ox Last 24 Hr 97.5 F-102.5 F 74-95 16-20 128-150/65-83 97-100 Intake & Output 11/14/17 11/15/17 11/16/17 11/17/17 23:59 23:59 23:59 23:59 Intake Total 42 820 Output Total 2100 600 Balance -2057 220 Weight 53.07 kg GENERAL: elderly woman lying comfortably in bed, aaox2 (knows name, location), nad HEENT: PERRL, EOMI, sclera anicteric, conjunctiva clear LUNGS: CTAB HEART: rrr, normal s1/s2, no m/r/g ABDOMEN: soft, ntnd, normoactive BS EXTREMITIES: 2+ DP pulses, wwp, no edema NEUROLOGICAL: Left facial droop, decreased L facial sensation, tongue deviation to L, motor strength RLE/RUE - 4/5, LLE/LUE - 3/5, downgoing plantars, dysarthria, gait not observed SKIN: intact, no sacral ulcers CBC, BMP 11/17/17 06:15 11/17/17 07:40 11/16/17 11/17/17 11/17/17 09:50 06:15 06:15 Neutrophils % 78.5 Lymphocytes % 15.2 D Monocytes % 6.1 Eosinophils % 0.0 Basophils % 0.2 ESR 4 Hemoglobin A1c % 5.4 Ca - 8.8 Phos - 3.4 Mg - 2 Laboratory Tests 11/17/17 06:15 Phenytoin 32.7 H* Microbiology 11/16/17 02:00 Blood - Peripheral Venous Blood Culture - Preliminary NO GROWTH OBTAINED AFTER 24 HOURS, INCUBATION TO CONTINUE FOR 4 DAYS. 11/16/17 01:41 Blood - Peripheral Venous Blood Culture - Preliminary NO GROWTH OBTAINED AFTER 24 HOURS, INCUBATION TO CONTINUE FOR 4 DAYS. Active Medications Acetaminophen (Ofirmev Injection -) 1,000 mg IVPB Q6H PRN PRN Reason: FEVER Last Admin: 11/16/17 14:37 Dose: 1,000 mg Atorvastatin Calcium (Lipitor -) 40 mg PO DAILY LENNY Last Admin: 11/16/17 09:44 Dose: Not Given Dexamethasone Sodium Phosphate (Decadron Injection -) 4 mg IVPB Q6H-IV [facility] Last Admin: 11/17/17 03:47 Dose: 4 mg Sodium Chloride (Normal Saline -) 1,000 mls @ 42 mls/hr IV ASDIR [facility] Last Admin: 11/17/17 03:47 Dose: Not Given Levetiracetam (Keppra Injection -) 1,500 mg IVPB BID [facility] Last Admin: 11/16/17 22:14 Dose: 1,500 mg Phenytoin Sodium (Dilantin Injection -) 200 mg IVPB BID [facility] Last Admin: 11/16/17 23:46 Dose: 200 mg ASSESSMENT/PLAN: 72yo F with PMH of GBM s/p partial resection, ?RT (December 2016, [facility]), breast Ca who was brought to ED by daughter after increasing L sided weakness and slurred speech for past 2-3 days. #GBM s/p R resection December 2016, L hemiparesis and slurred speech improved today , appears to be at baseline *Surgical/Path Report in chart (WHO grade 4, IDH1 neg, MIB-1 high (50%)) *MRI 11/16 - no acute infarct, carotid dopplers wnl, ECHO: poor LV compliance, no RWA, EF wnl -Neurology consulted (Dr. Browne): -Phenytoin 200mg IV BID --> level 32.7 (corrected 38.9), hold x 2-3days and re-check level, restart at 100mg BID -c/w Keppra 1500mg IV BID -Continue Decadron 4mg IV q6H -Neurosurgery consulted (Dr. Patino) - does not recommend further surgical intervention -Heme/Onc consulted -Palliative care consult -GEOPOLITICS TEACHER to do MBS -Lipitor 40mg PO -Neuro checks q2h, aspiration precautions, elevate HOB #fever (Tmax 102.5), now afebrile x 12h, BCx NGTD x 24H, CXR neg, UA neg -ID consulted -f/u blood cultures -Tylenol 1 gm IV PRN #F/E/N: NS@42 / lytes wnl / NPO, await GEOPOLITICS TEACHER eval #PPX -DVT SCD's #Dispo: d/c tele Full code, per daughter Naren d/w Dr. Jil Garcia MD PGY1 - Internal Medicine Visit type - Emergency Visit Emergency Visit: No - New Patient This patient is new to me today: No - Critical Care Critical Care patient: No
[2017-11-17 08:19] LABS: ANION GAP 10 (8-16); BLOOD UREA NITROGEN 9 mg/dL (7-18); CALCIUM 8.8 mg/dL (8.5-10.1); CHLORIDE 104 mmol/L (98-107); CO2 31 mmol/L (21-32); CREATININE 0.6 mg/dL (0.55-1.02); GLUCOSE,RANDOM 100 mg/dL (74-106); PHOSPHOROUS 3.4 mg/dL (2.5-4.9); SODIUM 145 mmol/L (136-145)
--- NOTE | 2017-11-17 09:40 | PN ---
Progress Note (short form) - Note Progress Note: 72 y/o F with PMH stage 4 brain CA (Tx [place]), breast CA, past CVA s/p R sided craniotomy (with residual L sided weakness), who presents to the ED with slurred speech and increased L sided weakness over the past two days. Unable to obtain adequate hx from patient. As per ED staff, pt was in [place] with one of her daughters and was dropped off at her other daughter's home. She had been unable to ambulate for two days, and also had slurred speech and increased weakness in her LUE and LLE. During this time, pt has also c/o subjective fever and productive cough. Pt denied other physical complaints such as SOB, or changes in urinary or bowel function. pt sleepy and poorly arousable. on seizure RX although no clear recent seziure. CT HD : IMPRESSION: Lesions in the right frontal lobe and right gangliocapsular region are probably metastatic lesions given the provided clinical history of stage IV breast cancer. Extensive surrounding vasogenic edema with right cerebral sulcal effacement and 1-2 mm right to left midline shift. No herniation pattern. No hydrocephalus. Further evaluation with contrast-enhanced MRI brain is recommended. These findings were discussed with Dr. Sommers at approximately 10: 00 AM on 11/16/2017. FU : much more awake today records +GBM, family wants her followed [facility] seen by ONC and NEUROSURG--no role in resection/decompression at this stage - History Source History Provided By: Medical Record - Alcohol/Substance Use Hx Alcohol Use: No - Smoking History Smoking history: Never smoked Have you smoked in the past 12 months: No Home Medications - Allergies Allergies/Adverse Reactions: Allergies Allergy/AdvReac Type Severity Reaction Status Date / Time No Known Allergies Allergy Verified 11/16/17 02:25 - Home Medications Home Medications: Ambulatory Orders Dexamethasone [Decadron -] 4 mg PO BID 11/16/17 Phenytoin Na Extended [Dilantin -] 200 mg PO BID 11/16/17 Sennosides/Docusate Sodium [Senexon-S Tablet] 1 each PO PRN PRN 11/16/17 levETIRAcetam [Keppra -] 1,500 mg PO BID 11/16/17 Physical Exam-Neuro Vital Signs: Last Vital Signs Temp Pulse Resp BP Pulse Ox 98.2 F 85 20 150/67 100 11/17/17 05:55 11/17/17 05:55 11/17/17 05:55 11/17/17 05:55 11/17/17 09:00 Labs: CBCD WBC 7.8 K/mm3 (4.0-10.0) D 11/17/17 06:15 RBC 4.31 M/mm3 (3.60-5.2) 11/17/17 06:15 Hgb 13.8 GM/dL (10.7-15.3) 11/17/17 06:15 Hct 40.3 % (32.4-45.2) 11/17/17 06:15 MCV 93.6 fl (80-96) 11/17/17 06:15 MCHC 34.1 g/dl (32.0-36.0) 11/17/17 06:15 RDW 13.2 % (11.6-15.6) 11/17/17 06:15 Plt Count 162 K/MM3 (134-434) 11/16/17 02:00 MPV 7.2 fl (7.5-11.1) L 11/17/17 06:15 CMP Sodium 145 mmol/L (136-145) 11/17/17 07:40 Potassium 4.0 mmol/L (3.5-5.1) 11/17/17 07:40 Chloride 104 mmol/L (98-107) 11/17/17 07:40 Carbon Dioxide 31 mmol/L (21-32) 11/17/17 07:40 Anion Gap 10 (8-16) 11/17/17 07:40 BUN 9 mg/dL (7-18) 11/17/17 07:40 Creatinine 0.6 mg/dL (0.55-1.02) 11/17/17 07:40 Creat Clearance w eGFR > 60 (>60) 11/16/17 02:00 Calcium 8.8 mg/dL (8.5-10.1) 11/17/17 07:40 Total Bilirubin < 0.1 mg/dL (0.2-1.0) L 11/16/17 02:00 AST 18 U/L (15-37) 11/16/17 02:00 ALT 24 U/L (12-78) 11/16/17 02:00 Alkaline Phosphatase 109 U/L (45-117) 11/16/17 02:00 Total Protein 7.1 g/dl (6.4-8.2) 11/16/17 02:00 Albumin 3.7 g/dl (3.4-5.0) 11/16/17 02:00 - Neuro Exam Level Of Consciousness: Yes: Sedated (pt sleepy , and poorly arousable , nonverbal , does not answer name or follow commands, left gaze, and left hemiparesis ), Stuporous Imaging - Results Cat Scan: Report Reviewed, Image Reviewed Problem List - Problems (1) Brain malignant neoplasm Code(s): C71.9 - MALIGNANT NEOPLASM OF BRAIN, UNSPECIFIED (2) Left hemiparesis Code(s): G81.94 - HEMIPLEGIA, UNSPECIFIED AFFECTING LEFT NONDOMINANT SIDE (3) Cerebrovascular accident (CVA) Code(s): I63.9 - CEREBRAL INFARCTION, UNSPECIFIED Assessment/Plan 72 y/o F with PMH stage 4 brain CA (Tx [place]), breast CA, past CVA s/p R sided craniotomy (with residual L sided weakness), who presents to the ED with slurred speech and increased L sided weakness over the past two days. Unable to obtain adequate hx from patient. As per ED staff, pt was in [place] with one of her daughters and was dropped off at her other daughter's home. She had been unable to ambulate for two days, and also had slurred speech and increased weakness in her LUE and LLE. During this time, pt has also c/o subjective fever and productive cough. Pt denied other physical complaints such as SOB, or changes in urinary or bowel function. pt sleepy and poorly arousable. on seizure RX although no clear recent seizure. CT HD : IMPRESSION: Lesions in the right frontal lobe and right gangliocapsular region are probably metastatic lesions given the provided clinical history of stage IV breast cancer. Extensive surrounding vasogenic edema with right cerebral sulcal effacement and 1-2 mm right to left midline shift. No herniation pattern. No hydrocephalus. Further evaluation with contrast-enhanced MRI brain is recommended. encephalopathy-- ? from progression of brain cancer vs seizure vs metabolic vs fever; improving though still very poor prognosis continue DECADRON 4mg q6 level dilanitn elevated -hold dilantin x 3 days --check level then and restart according to level ;spoke to resident [id number] Dr Gulati Problem List - Problems (1) Brain malignant neoplasm Code(s): C71.9 - MALIGNANT NEOPLASM OF BRAIN, UNSPECIFIED (2) Left hemiparesis Code(s): G81.94 - HEMIPLEGIA, UNSPECIFIED AFFECTING LEFT NONDOMINANT SIDE (3) Cerebrovascular accident (CVA) Code(s): I63.9 - CEREBRAL INFARCTION, UNSPECIFIED
[2017-11-17] MEDS ORDERED: PT OWN MED DRAWER 7, Y5N ONE ×4 (09:47→21:48)
[2017-11-17] MEDS: ATORVASTATIN CA 40 MG TABLET (FP) PO SCH (10:19)
[2017-11-17] MEDS: levETIRAcetam 500 MG/5 ML INJECTION VIAL IVPB SCH ×2 (10:19→21:54)
[2017-11-17] MEDS: PHENYTOIN SODIUM 100 MG/2 ML VIAL IVPB SCH (10:19)
--- NOTE | 2017-11-17 10:29 | CONSULT ---
Consult Consult Specialty:: Oncology - History of Present Illness History of Present Illness: 72yo F with PMH GBM s/p resection annd chemoRT (Tx [place], RT completed March 2017 per [facility] records, breast Ca who was brought to ED by daughter after increasing L sided weakness and slurred speech for past several days of unclear etiology. Pt seen and examined Pt able to give some history Detailed discussion with daughter - History Source History Provided By: Patient, Family Member, Medical Record - Alcohol/Substance Use Hx Alcohol Use: No - Smoking History Smoking history: Never smoked Have you smoked in the past 12 months: No Home Medications - Allergies Allergies/Adverse Reactions: Allergies Allergy/AdvReac Type Severity Reaction Status Date / Time No Known Allergies Allergy Verified 11/16/17 02:25 - Home Medications Home Medications: Ambulatory Orders Dexamethasone [Decadron -] 4 mg PO BID 11/16/17 Phenytoin Na Extended [Dilantin -] 200 mg PO BID 11/16/17 Sennosides/Docusate Sodium [Senexon-S Tablet] 1 each PO PRN PRN 11/16/17 levETIRAcetam [Keppra -] 1,500 mg PO BID 11/16/17 Physical Exam Vital Signs: Vital Signs Temperature 98.2 F 11/17/17 05:55 Pulse Rate 85 11/17/17 05:55 Respiratory Rate 20 11/17/17 05:55 Blood Pressure 150/67 11/17/17 05:55 O2 Sat by Pulse Oximetry (%) 100 11/17/17 09:00 Constitutional: Yes: Mild Distress HENT: Yes: Atraumatic, Normocephalic Neck: Yes: Supple Cardiovascular: Yes: Regular Rate and Rhythm Respiratory: Yes: Regular Gastrointestinal: Yes: Normal Bowel Sounds, Soft Breast(s): Yes: Mass, Other (left hard mass palpable.) Extremities: Yes: WNL Edema: No Neurological: Yes: Alert, Oriented Psychiatric: Yes: Alert Labs: CBC, BMP 11/17/17 06:15 11/17/17 07:40 Imaging - Results Cat Scan: Report Reviewed MRI: Report Reviewed Problem List - Problems (1) Brain malignant neoplasm Code(s): C71.9 - MALIGNANT NEOPLASM OF BRAIN, UNSPECIFIED (2) Left hemiparesis Code(s): G81.94 - HEMIPLEGIA, UNSPECIFIED AFFECTING LEFT NONDOMINANT SIDE (3) Breast mass in female Code(s): N63.0 - UNSPECIFIED LUMP IN UNSPECIFIED BREAST Assessment/Plan H/O recurrent GBM: was followed at [place]. s/p R resection December 2016 Surgical/Path WHO grade 4, IDH1 neg, MIB-1 high (50%) now on a ?clinical trial daughter asked us not to call her sister in [place]. Now at ?baseline will c.w steroids and Anti-epileptics NSG/Neuro recs reviewed Imaging reports from here and obtained ones reviewed Would be very helpful if possible to get the actual treatment records ( pt/ daughter do not know the Oncologist name) H/O stage I breast ca ( Left) in 2011, as per daughter pt refused to take hormonal therapy. now with a Neglected "hard" breast mass on the left side ( unknown if this is a "recurrence" or new primary) for CT c/a/p staging. PT arian. d/w Daughter in detail about the present situation ,including prognosis ( for recurrent GBM ) , wanted "everything" and she has already made an appt at [facility] for 11/23/2017. rest per primary tt 45min, d/w resident
--- NOTE | 2017-11-17 12:13 | PN ---
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 Pt is fully awake, verbal, oriented and appropriate. Harsh vocal quality. Pt reports h/o coughing while eating at home before hospitalization. Overtly tolerates puree. Silent aspiration can not be r/o at bedside. Suggest: MBS to further assess swallowing function and determine safest diet.
--- NOTE | 2017-11-17 13:29 | CONS ---
DATE OF CONSULTATION: 11/17/2017 REQUESTING PHYSICIAN: Dr. Garcia CHIEF COMPLAINT: Worsening mental status deterioration, slurred speech, and inability to ambulate. HISTORY OF PRESENT ILLNESS: The patient is a 72-year-old right-handed female with a history of breast cancer glioblastoma multiforme, status post craniotomy last December with residual hemiparesis who was admitted for increasing speech difficulty and difficulty with ambulation for 2-days' duration. The patient had surgery done in [place] about 11 months ago and was found to have GBM. He is not able to provide a history of whether she has undergone adjuvant chemotherapy or radiation therapy. She was brought home by her daughter from [place] to [place] to be with her. The daughter noted the patient could not move her left side and had a low-grade temperature and brought her in for evaluation and treatment. PAST MEDICAL HISTORY: Significant for GBM, craniotomy, breast cancer. CURRENT MEDICATIONS: Include Keppra, normal saline, Lipitor, IV Tylenol, and Decadron. ALLERGIES: There are no drug allergies. FAMILY HISTORY: Noncontributory. SOCIAL HISTORY: She does not smoke or drink. She lives at home with her daughter. She does not work. REVIEW OF SYSTEMS: Otherwise, negative for other major constitutional, head, neck, cardiovascular, pulmonary, gastrointestinal, genitourinary, endocrinologic, neurologic, or psychological problems except for the above. PHYSICAL EXAMINATION: Vital Signs: T-max 99.6, currently 98.2, blood pressure 150/67 with pulse rate 85, O2 saturations 100% on 4 L. HEENT: Shows a healed right frontotemporal incision. Neck: Supple. Coronary: Demonstrates regular rhythm. Lungs: Clear bilaterally. She does have decreased breath sounds at the bases. Abdomen: Benign. Extremities: Show no obvious signs of DVT. Neurologic: She is awake, alert, and oriented x2. She is more fluent than yesterday by the bedside nurse report. Cranial nerve examination shows minimal facial asymmetry of the left lower face. Her tongue deviates toward the left. Motor examination shows motor strength at best 2/5 of the left lower extremity. Sensory examination is intact to light touch in general. Deep tendon reflexes 1+ throughout. Toes are upgoing bilaterally. Gait is not tested for safety reasons. LABORATORY EXAMINATION: Shows white blood cell count 7.8, hemoglobin 13.8, platelet count 158,000, ESR 4, INR 1.04, serum sodium 145, potassium 4, BUN 9, creatinine 0.6, calcium 8.8. Urinalysis is negative. Dilantin level is pending. CT scan of the head from yesterday demonstrated right frontoparietal white matter disease with associated mass lesion extending toward the basal ganglia. There is mild vasogenic edema or post radiation changes with gliosis. There is slight mass affect right to left. MRI examination of the brain done yesterday also demonstrated a multilobulated rim-enhancing lesion in the right lateral frontal greater than parietal region extending toward the basal ganglia approximately 3.5 x 4 x 4.5 cm. There is extensive T2 hyperintensity in right frontoparietal white matter as well as to the temporal lobe. There is midline mass affect. IMPRESSION: 1. Right lateral frontal glioblastoma. 2. History of breast cancer. 3. Rule out seizure disorder. RECOMMENDATIONS: The patient presented with decreased neurological function with increasing left hemiparesis as well as a low-grade temperature. On her current imaging studies, she likely has local tumor progression with associated vasogenic edema. Her mental status is significantly improved after the IV steroid. Once should also ascertain that a Dilantin level is therapeutic before she is discharged. She eventually could be converted back to oral steroids and tapered down to Decadron 4 mg twice a day. No neurosurgical intervention is recommended at this time. The average survival for glioblastoma with surgery and adjuvant therapy is about 11 months, and she is about 11 months since her surgery. Further surgical intervention will likely result in further neurological morbidity without significantly prolonging her lifespan or quality of life. The above was discussed with the patient's treating medical team. LILIBETH CALVO M.D. [id number]
--- NOTE | 2017-11-17 13:53 | PN ---
Progress Note (short form) - Note Progress Note: ID Consult dictated Fever in 72 y/o female with known R brain neoplasm on decadron, hemiparesis, cough ? Aspiration pneumonia ? Opportunistic infection Await c/s CT chest Influenza swab Empiric unasyn
--- NOTE | 2017-11-17 14:18 | CONS ---
INFECTIOUS DISEASE CONSULTATION DATE OF CONSULTATION: DATE OF DICTATION: 11/17/2017 HISTORY OF PRESENT ILLNESS: The patient is a 72-year-old female with a known history of right glioblastoma multiforme, evaluated for fever and cough. History was obtained from the chart as well as patient's daughter. She was admitted to the hospital on November 16, 2017, with reports of slurred, worsening left hemiparesis with inability to ambulate. The daughter also reports that she had low-grade fever and cough. She presented to the emergency room where she was admitted. Her course was complicated by fever to 102.5. She was noted to have cough on exam. The patient has a known history of glioblastoma and had been followed at [facility]. Her last MRI in September 2017 showed persistent tumor. She has been maintained on Decadron 4 mg twice a day as well as Dilantin and Keppra. The patient reports cough productive of purulent sputum. She denies any chest pain or dyspnea. Daughter states that she has not been around any ill persons or persons with acute influenza. No recent hospitalizations. Patient was diagnosed with breast cancer in 2011. She is status post lumpectomy, chemotherapy, and radiation. She was in [place] last year when she suffered a stroke. She was brought back to the [facility] where imaging studies showed a right brain mass. She underwent a craniotomy in December 2016. Pathology was positive for glioblastoma. PAST MEDICAL HISTORY: Positive for stage IV brain cancer, history of breast cancer, stroke. PAST SURGICAL HISTORY: Status post right craniotomy. ALLERGIES: No known allergies. MEDICATIONS: 1. Decadron. 2. Dilantin. 3. Keppra. SOCIAL HISTORY: Originally from [place], has been living in the [facility] for many years. No active tobacco or alcohol use. She had been living in [place] and had been receiving care at [facility]. However, recently relocated to [place]. SYSTEMS REVIEW: Neurologic: As per HPI. Cardiac: Negative chest pain or palpitations. Respiratory: As per HPI. Gastrointestinal: Negative vomiting or diarrhea. Genitourinary: Negative for urinary tract infection. LABORATORY DATA: White count 7.8, neutrophils 78, lymphocytes 15, monocytes 6; hematocrit 40.3; platelet count 158. BUN 9, creatinine 0.6. Liver enzymes normal. Urinalysis negative. Blood and urine cultures pending. Chest x-ray negative for acute infiltrate. PHYSICAL EXAMINATION: General: She is awake and responsive, in no acute respiratory distress. Positive cough noted. Vital Signs: T-max 102.5; blood pressure 150/67; pulse 85, regular; respirations 20 per minute. HEENT: Sclerae are anicteric. Positive facial asymmetry. Heart: Sounds S1, S2. Lungs: Diminished breath sounds bilaterally. Left Breast: A palpable mass is present on the lower inner quadrant with skin induration. Abdomen: Soft. No tenderness elicited. No mass, rebound, or rigidity. Extremities: Negative for edema. Skin: No sacral decubitus ulcer. IMPRESSION: High-grade fever in 72-year-old female with known right brain neoplasm on Decadron, with hemiparesis and cough. 1. Possible aspiration pneumonia. 2. Cannot rule out an opportunistic pulmonary process in light of longstanding Decadron usage. Await culture results. Obtain influenza swab. CAT scan of the chest with contrast to rule out pneumonitis. Empiric antibiotic coverage for possible aspiration with Unasyn. Further recommendations pending cultures. Case was discussed with patient's daughter by phone. Will follow. Thank you for the kind referral. TORY GENTILE M.D. [id number]
[2017-11-17] MEDS: AMPICILLIN NA/SULBACTAM NA 1.5 GM in SODIUM CHLORIDE 100 ML IVPB SCH ×2 (16:20→21:52)
--- NOTE | 2017-11-17 16:56 | PN ---
Teaching Attending Note Name of Resident: Alberta Garcia ATTENDING PHYSICIAN STATEMENT I saw and evaluated the patient. I reviewed the resident's note and discussed the case with the resident. I agree with the resident's findings and plan as documented. SUBJECTIVE: Patient is awake and alert. She reports having a cough. OBJECTIVE: Vital Signs Period Temp Pulse Resp BP Sys/Levin Pulse Ox Last 24 Hr 97.5 F-99.8 F 74-85 20-20 128-150/65-74 100-100 HEART: S1S2, RRR LUNGS: Clear ABDOMEN: Soft, non-distended, normal BS EXTREMITIES: No edema Laboratory Results - last 24 hr 11/17/17 11/17/17 11/17/17 06:15 06:15 06:15 WBC 7.8 D RBC 4.31 Hgb 13.8 Hct 40.3 MCV 93.6 MCH 32.0 MCHC 34.1 RDW 13.2 Plt Count 158 MPV 7.2 L Neutrophils % 78.5 Lymphocytes % 15.2 D Monocytes % 6.1 Eosinophils % 0.0 Basophils % 0.2 Platelet Comment No clumping noted Sodium Cancelled Potassium Cancelled Chloride Cancelled Carbon Dioxide Cancelled Anion Gap Cancelled BUN Cancelled Creatinine Cancelled Random Glucose Cancelled Hemoglobin A1c % 5.4 Calcium Cancelled Phosphorus Cancelled Magnesium Cancelled Phenytoin 11/17/17 11/17/17 06:15 07:40 WBC RBC Hgb Hct MCV MCH MCHC RDW Plt Count MPV Neutrophils % Lymphocytes % Monocytes % Eosinophils % Basophils % Platelet Comment Sodium 145 Potassium 4.0 Chloride 104 Carbon Dioxide 31 Anion Gap 10 BUN 9 Creatinine 0.6 Random Glucose 100 Hemoglobin A1c % Calcium 8.8 Phosphorus 3.4 Magnesium 2.0 Phenytoin 32.7 H* Current Medications Generic Name Dose Route Start Last Admin Trade Name Freq PRN Reason Stop Dose Admin Acetaminophen 1,000 mg 11/16/17 14:30 11/16/17 14:37 Ofirmev Injection - IVPB 1,000 mg Q6H PRN Administration FEVER Atorvastatin Calcium 40 mg 11/16/17 10:00 11/17/17 10:19 Lipitor - PO Not Given DAILY LENNY Dexamethasone Sodium Phosphate 4 mg 11/16/17 22:00 11/17/17 15:35 Decadron Injection - IVPB 4 mg Q6H-IV LENNY Administration Sodium Chloride 1,000 mls @ 42 mls/hr 11/16/17 02:00 11/17/17 03:47 Normal Saline - IV Not Given ASDIR LENNY Ampicillin Sodium/Sulbactam 100 mls @ 200 mls/hr 11/17/17 15:00 11/17/17 16: 20 Sodium 1.5 gm/ Sodium Chloride IVPB 200 mls/hr Q6H-IV LENNY Administration Levetiracetam 1,500 mg 11/16/17 10:45 11/17/17 10:19 Keppra Injection - IVPB 1,500 mg BID LENNY Administration ASSESSMENT AND PLAN: This is a 72 year old woman with a history of breast cancer, GBM who presented to the ED with slurred speech and inability to move her left side. 1. Left hemiparesis and dysarthria secondary to recurrent glioblastoma multiforme - Continue Decadron, Keppra - Dilantin held secondary to high level - Neurosurgery, neurology, oncology input appreciated - Patient has appointment 11/23 at [facility] in [place] 2. History of GBM treated with surgical resection, chemo, radiation 3. History of stage I left breast cancer, now with left breast mass
[2017-11-18] MEDS: AMPICILLIN NA/SULBACTAM NA 1.5 GM in SODIUM CHLORIDE 100 ML IVPB SCH ×4 (03:15→21:02)
[2017-11-18] MEDS: DEXAMETHASONE SOD PHOSPHATE 4 MG/1 ML VIAL IVPB SCH ×4 (03:30→22:01)
[2017-11-18] MEDS: SODIUM CHLORIDE 1,000 ML IV SCH (06:26)
[2017-11-18 07:27] LABS: HEMATOCRIT 39.8 % (32.4-45.2); HEMOGLOBIN 13.6 GM/dL (10.7-15.3); MCH 31.7 pg (25.7-33.7); MCHC 34.3 g/dl (32.0-36.0); MEAN CELL VOLUME 92.4 fl (80-96); MEAN PLT VOLUME 6.7 fl (7.5-11.1); PLATELET COUNT 167 K/MM3 (134-434); RBC 4.31 M/mm3 (3.60-5.2); RDW 13.3 % (11.6-15.6); WHITE BLOOD COUNT 5.2 K/mm3 (4.0-10.0)
--- NOTE | 2017-11-18 07:52 | PN ---
Progress Note (short form) - Note Progress Note: NEUROSURGERY No new complaint PE: Tmax 99.8, VSS Conversant, pleasant HEENT- NC/AT; Neck- supple; Cor- RR; Lungs- CTA B; Abd- benign; Ext- no sign of DVT Speech more fluent CN_ intact except minimal L facial assymmetry and L tongue deviation; Motor- dense L hemiparesis 3/5 L hand , 1/5 prox L UE, l LE 3/5; Sensation- grossly intact; DTR-1+ Brain MRI- R lateral frontal> parietal 4 x4 x4.5 cm multilobulated rim enhancing lesion with associated vasogenic edema and gliosis, mild mass effect, some ependymal wall (lat ventricle) enhancement; no HCP Prior path- GBM Dilantin level 32.7 Extensive malignant R lateral frontal neoplasm, GBM Obtain treatment records if possible, though pt is probably best cared for by the recent treating team which performed the surgery and delivered adjuvant therapy The tumor is in eloquent area and is not fully resectable Prognosis is poor for terminal gauger functional survival, as patient is 11 months after surgery and likely adjuvant RT tx already; surgery will likely cause significant neurological morbidity and will unlikely prolong functional survival Cont Decadron and dilantin for now; can eventually taper decadron down to 4 mg bid On Unasyn per ID Adjust dilantin dosage per neurology
[2017-11-18 08:24] LABS: ALBUMIN 3.1 g/dl (3.4-5.0); ANION GAP 8 (8-16); BLOOD UREA NITROGEN 12 mg/dL (7-18); CALCIUM 8.8 mg/dL (8.5-10.1); CHLORIDE 104 mmol/L (98-107); CO2 32 mmol/L (21-32); CREATININE 0.5 mg/dL (0.55-1.02); GLUCOSE,RANDOM 91 mg/dL (74-106); POTASSIUM 3.7 mmol/L (3.5-5.1); SGOT/AST 13 U/L (15-37); SGPT/ALT 16 U/L (12-78); SODIUM 144 mmol/L (136-145)
[2017-11-18 08:26] LABS: ALK PHOS 88 U/L (45-117); BILIRUBIN,TOTAL 0.2 mg/dL (0.2-1.0); TOT PROT 6.4 g/dl (6.4-8.2)
[2017-11-18] MEDS: ATORVASTATIN CA 40 MG TABLET (FP) PO SCH (10:45)
[2017-11-18] MEDS: levETIRAcetam 500 MG/5 ML INJECTION VIAL IVPB SCH ×2 (10:45→22:03)
--- NOTE | 2017-11-18 11:20 | PN ---
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 Reg, soft diet and thin liquids recommended. OOB for meals, if possible. Selected Entries 11/17/17 11/17/17 11/17/17 02:00 05:55 07:50 Breakfast Supper NPO Temperature 97.5 F L 98.2 F 11/17/17 11/17/17 11/17/17 10:53 14:00 17:00 Breakfast NPO Supper Temperature 99.8 F H 98.2 F 11/17/17 11/17/17 11/18/17 19:40 20:32 05:50 Breakfast Supper NPO Temperature 99.0 F 98.3 F 11/18/17 11/18/17 09:00 09:46 Breakfast NPO Supper Temperature 98.3 F Laboratory Tests 11/17/17 11/18/17 06:15 07:05 WBC 7.8 D 5.2 D Pending diet order.
--- NOTE | 2017-11-18 11:57 | PN ---
Progress Note (short form) - Note Progress Note: pt seen and examined. eating lunch. feeling much better. participating in PT. O/E: Constitutional: Yes: no Distress HENT: Yes: Atraumatic, Normocephalic Neck: Yes: Supple Cardiovascular: Yes: Regular Rate and Rhythm Respiratory: Yes: Regular Gastrointestinal: Yes: Normal Bowel Sounds, Soft Breast(s): Yes: Mass, Other (left hard mass palpable.) Extremities: Yes: WNL Edema: No Neurological: Yes: Alert, Oriented Psychiatric: Yes: Alert Last Vital Signs Temp Pulse Resp BP Pulse Ox 98.3 F 72 20 134/70 100 11/18/17 09:00 11/18/17 09:00 11/18/17 09:00 11/18/17 09:00 11/18/17 09:00 Current Medications Generic Name Dose Route Start Last Admin Trade Name Freq PRN Reason Stop Dose Admin Acetaminophen 1,000 mg 11/16/17 14:30 11/16/17 14:37 Ofirmev Injection - IVPB 1,000 mg Q6H PRN Administration FEVER Atorvastatin Calcium 40 mg 11/16/17 10:00 11/18/17 10:45 Lipitor - PO Not Given DAILY LENNY Dexamethasone Sodium Phosphate 4 mg 11/16/17 22:00 11/18/17 08:12 Decadron Injection - IVPB 4 mg Q6H-IV LENNY Administration Sodium Chloride 1,000 mls @ 42 mls/hr 11/16/17 02:00 11/18/17 06:26 Normal Saline - IV 42 mls/hr ASDIR LENNY Administration Ampicillin Sodium/Sulbactam 100 mls @ 200 mls/hr 11/17/17 15:00 11/18/17 09: 09 Sodium 1.5 gm/ Sodium Chloride IVPB 200 mls/hr Q6H-IV LENNY Administration Levetiracetam 1,500 mg 11/16/17 10:45 11/18/17 10:45 Keppra Injection - IVPB 1,500 mg BID LENNY Administration CBC, BMP 11/18/17 07:05 11/18/17 07:05 H/O recurrent GBM: c/w steroids and anti-emetic was followed at [place]. s/p R resection December 2016 Surgical/Path WHO grade 4, IDH1 neg, MIB-1 high (50%) now on a ?clinical trial H/O stage I breast ca ( Left) in 2012, now with new breast mass on the left: CT with no evidence of mets. no pathological diagnosis made. AMS: resolved c/w ?abx she has appt at [facility] on 11/23 PT evjose. Problem List - Problems (1) Brain malignant neoplasm Code(s): C71.9 - MALIGNANT NEOPLASM OF BRAIN, UNSPECIFIED (2) Left hemiparesis Code(s): G81.94 - HEMIPLEGIA, UNSPECIFIED AFFECTING LEFT NONDOMINANT SIDE (3) Breast mass in female Code(s): N63.0 - UNSPECIFIED LUMP IN UNSPECIFIED BREAST
--- NOTE | 2017-11-18 14:07 | PN ---
Progress Note, Physician History of Present Illness: Awake, responsive Offers no complaints Temps down Afebrile BC no growth Flu screen negative CT chest, abdo/pelvis no acute pathology - Current Medication List Current Medications: Active Medications Acetaminophen (Ofirmev Injection -) 1,000 mg IVPB Q6H PRN PRN Reason: FEVER Last Admin: 11/16/17 14:37 Dose: 1,000 mg Atorvastatin Calcium (Lipitor -) 40 mg PO DAILY [facility] Last Admin: 11/18/17 10:45 Dose: Not Given Dexamethasone Sodium Phosphate (Decadron Injection -) 4 mg IVPB Q6H-IV LENNY Last Admin: 11/18/17 08:12 Dose: 4 mg Sodium Chloride (Normal Saline -) 1,000 mls @ 42 mls/hr IV ASDIR [facility] Last Admin: 11/18/17 06:26 Dose: 42 mls/hr Ampicillin Sodium/Sulbactam (Sodium 1.5 gm/ Sodium Chloride) 100 mls @ 200 mls/ hr IVPB Q6H-IV [facility] Last Admin: 11/18/17 09:09 Dose: 200 mls/hr Levetiracetam (Keppra Injection -) 1,500 mg IVPB BID [facility] Last Admin: 11/18/17 10:45 Dose: 1,500 mg - Objective Vital Signs: Vital Signs Temperature 98.3 F 11/18/17 09:00 Pulse Rate 72 11/18/17 09:00 Respiratory Rate 20 11/18/17 09:00 Blood Pressure 134/70 11/18/17 09:00 O2 Sat by Pulse Oximetry (%) 100 11/18/17 09:00 Constitutional: Yes: No Distress Eyes: Yes: Conjunctiva Clear Cardiovascular: Yes: Regular Rate and Rhythm, S1, S2 Respiratory: Yes: Diminished Gastrointestinal: Yes: Normal Bowel Sounds, Soft. No: Tenderness Edema: Yes Edema: LLE: 1+, RLE: 1+ Labs: CBC, BMP 11/18/17 07:05 11/18/17 07:05 INR, PTT INR 1.04 (0.82-1.09) 11/16/17 02:00 Assessment/Plan Recurent GBM Fever? source L breast mass Await cultures Continue empiric unasyn
--- NOTE | 2017-11-18 15:43 | PN ---
Teaching Attending Note Name of Resident: Alberta Garcia ATTENDING PHYSICIAN STATEMENT I saw and evaluated the patient. I reviewed the resident's note and discussed the case with the resident. I agree with the resident's findings and plan as documented with exceptions mentioned below. SUBJECTIVE: Patient seen and examined, slurred speech, but no complaints. Feels better. Just had lunch with no concerns. OBJECTIVE: Vital Signs Period Temp Pulse Resp BP Sys/Levin Pulse Ox Last 24 Hr 98.2 F-99.1 F 70-79 18-20 124-137/58-70 100-100 Intake & Output 11/15/17 11/16/17 11/17/17 11/18/17 23:59 23:59 23:59 23:59 Intake Total 42 1256 1370 Output Total 2100 600 Balance -2057 656 1370 Weight 117 lb General: sitting in chair in no acute distress Chest: CTAB, no rales or wheezing abdomen: soft, NT Neuro AA, slurred speech, left hemiparesis Home Medication List Medication Instructions Recorded Confirmed Type Dexamethasone [Decadron -] 4 mg PO BID 11/16/17 11/16/17 History Phenytoin Na Extended [Dilantin -] 200 mg PO BID 11/16/17 11/16/17 History Sennosides/Docusate Sodium 1 each PO PRN PRN 11/16/17 11/16/17 History [Senexon-S Tablet] levETIRAcetam [Keppra -] 1,500 mg PO BID 11/16/17 11/16/17 History Active Medications Generic Name Dose Route Start Last Admin Trade Name Freq PRN Reason Stop Dose Admin Acetaminophen 1,000 mg 11/16/17 14:30 11/16/17 14:37 Ofirmev Injection - IVPB 1,000 mg Q6H PRN Administration FEVER Atorvastatin Calcium 40 mg 11/16/17 10:00 11/18/17 10:45 Lipitor - PO Not Given DAILY LENNY Dexamethasone Sodium Phosphate 4 mg 11/16/17 22:00 11/18/17 14:18 Decadron Injection - IVPB 4 mg Q6H-IV LENNY Administration Sodium Chloride 1,000 mls @ 42 mls/hr 11/16/17 02:00 11/18/17 06:26 Normal Saline - IV 42 mls/hr ASDIR LENNY Administration Ampicillin Sodium/Sulbactam 100 mls @ 200 mls/hr 11/17/17 15:00 11/18/17 15: 22 Sodium 1.5 gm/ Sodium Chloride IVPB 200 mls/hr Q6H-IV LENNY Administration Levetiracetam 1,500 mg 11/16/17 10:45 11/18/17 10:45 Keppra Injection - IVPB 1,500 mg BID LENNY Administration Laboratory Results - last 24 hr 11/18/17 11/18/17 07:05 07:05 WBC 5.2 D RBC 4.31 Hgb 13.6 Hct 39.8 MCV 92.4 MCH 31.7 MCHC 34.3 RDW 13.3 Plt Count 167 MPV 6.7 L Sodium 144 Potassium 3.7 Chloride 104 Carbon Dioxide 32 Anion Gap 8 BUN 12 Creatinine 0.5 L Creat Clearance w eGFR > 60 Random Glucose 91 Calcium 8.8 Total Bilirubin 0.2 D AST 13 L ALT 16 Alkaline Phosphatase 88 Total Protein 6.4 Albumin 3.1 L Microbiology 11/16/17 02:00 Blood - Peripheral Venous Blood Culture - Preliminary NO GROWTH OBTAINED AFTER 48 HOURS, INCUBATION TO CONTINUE FOR 3 DAYS. 11/16/17 01:41 Blood - Peripheral Venous Blood Culture - Preliminary NO GROWTH OBTAINED AFTER 48 HOURS, INCUBATION TO CONTINUE FOR 3 DAYS. 11/17/17 17:00 Nasopharyngeal Swab Influenza Types A,B Antigen (MANAN) - Final 11/17/17 17:00 Nasopharyngeal Swab - Final 11/16/17 05:34 Urine - Urine Vaughan Urine Culture - Final NO GROWTH OBTAINED MRI brain and carotid doppler results reviewed ASSESSMENT AND PLAN: 72 yom with PMHx of GBM s/p surgery/Chemoradiation, Stage I Breast Ca in 2011 ( refused hormonal therapy), HLD admitted with slurred speech/left hemiparesis, found with recurrent GBM -Recurrent GBM with dysarthria/Left hemiparesis -Fevers, ?Aspiration, CT chest neg for concerns. -Breast Ca, CT A/P neg for mets -HLD Plan: Neurology/neurosurgery/oncology/ID input appreciated. Decadron 4 mg QID till outpatient follow up. Speech/swallow input noted, soft diet with thin liquids and aspiration precautions. Trasntion to augmentin given no concerns on CT chest, for a short course. Dilantin held, Resume half dose after 3 days per neurology with follow up levels next week PT arian noted, daughter requesting home dc with outpatient follow up at [facility] on 11/23. Reinforce need for 24 hour assist and supervision in the interim D/c planning home with services and assist/supervision with outpatient [facility] follow up.
--- NOTE | 2017-11-18 16:01 | DS ---
Physical Exam: SUBJECTIVE: Patient seen and examined. No acute events overnight. Mental status continues to improve. Denies sob, cp, fever, chills. OBJECTIVE: Vital Signs Period Temp Pulse Resp BP Sys/Levin Pulse Ox Last 24 Hr 98.2 F-99.1 F 70-79 18-20 124-137/58-70 100-100 PHYSICAL EXAM GENERAL: lying comfortably in bed, aaox3, nad HEENT: PERRL, sclera anicteric, conjunctiva clear, MMM NECK: supple, no cervical LAD LUNGS: Breath sounds equal, clear to auscultation bilaterally, no wheezes, no crackles, no accessory muscle use. HEART: rrr, normal s1/s2, no m/r/g ABDOMEN: soft, NTND LOWER EXTREMITIES: 2+ DP pulses, wwp, no edema NEUROLOGICAL: Left facial droop, decreased L facial sensation, tongue deviation to L, motor strength RLE/RUE - 4/5, LLE/LUE - 3/5, downgoing plantars, dysarthria, gait not observed SKIN: intact, no sacral ulcers CBC, BMP 11/18/17 07:05 11/18/17 07:05 Hepatic Panel Total Bilirubin 0.2 mg/dL (0.2-1.0) D 11/18/17 07:05 AST 13 U/L (15-37) L 11/18/17 07:05 ALT 16 U/L (12-78) 11/18/17 07:05 Alkaline Phosphatase 88 U/L (45-117) 11/18/17 07:05 Albumin 3.1 g/dl (3.4-5.0) L 11/18/17 07:05 HOSPITAL COURSE: Date of Admission:11/16/17 Date of Discharge: 11/18/17 Preadmission Course: 72yo F with PMH of breast Ca (2011), GBM s/p resection December 2016 (? prior chemo /RT) who p/w ED with worsening speech and L sided weakness for the past 2 days. The patient had been living with a daughter in [place] who was coordinating her care for GBM at [facility]). However, patient recently re-located to [place] to live a different daughter (Naren). Naren communicated that she does not wish the other daughter be contacted for collateral information. According to daughter Naren, she has been unable to ambulate for two days, and also had slurred speech and increased weakness in her LUE and LLE. During this time, pt has also c/o subjective fever and productive cough. Pt denied other physical complaints such as SOB, or changes in urinary or bowel function. ER course was notable for: (1) Febrile 100.5F (2) Head CT non-con: cannot exclude tiny acute hematomas (3) Aspirin (4) Keppra, dilantin (5) Morphine, zofran Subsequent Hospital Course: Neurology, Neurosurgery, and Heme/Onc were consulted. The patient was started on Decadron 4mg Q6H. Her Keppra was increased to 1500mg PO BID. #GBM s/p R resection December 2016, L hemiparesis and slurred speech improve greatly d today, appears to be at baseline *Surgical/Path Report in chart (WHO grade 4, IDH1 neg, MIB-1 high (50%)) *MRI 11/16 - no acute infarct, carotid dopplers wnl, ECHO: poor LV compliance, no RWA, EF wnl -Neurology consulted (Dr. Browne): -Phenytoin 200mg IV BID --> level 32.7 (corrected 38.9), hold x 2-3days and re-check level, restart at 100mg BID -c/w Keppra 1500mg IV BID -Continue Decadron 4mg IV q6H -Neurosurgery consulted (Dr. Patino) - does not recommend further surgical intervention -Heme/Onc consulted -Palliative care consult -[employer] to do MBS -Lipitor 40mg PO -Neuro checks q2h, aspiration precautions, elevate HOB #fever (Tmax 102.5), now afebrile x 12h, BCx NGTD x 24H, CXR neg, UA neg -ID consulted -f/u blood cultures -Tylenol 1 gm IV PRN #F/E/N: NS@42 / lytes wnl / NPO, await [employer] eval #PPX -DVT SCD's #Dispo: d/c tele Full code, per daughter Naren Imaging: Consults: Neurosurgery - Dr. Ramone Patino Heme/Onc - Dr. Chan Neurology - Dr. Browne ID - Dr. Leonard Discharge Summary Reason For Visit: CVA (SROKE BED) Current Active Problems Brain malignant neoplasm (Acute) Breast mass in female (Acute) Cerebrovascular accident (CVA) (Acute) Left hemiparesis (Acute) Condition: Stable - Instructions Diet, Activity, Other Instructions: You were admitted to the hospital for worsening left sided weakness and slurring of your speech. You were treated with steroids IV and anti-seizure medications. Recommendations: -Follow a regular soft diet with thin liquids. -Please discuss with the physicians [place] [facility] Medications: You may resume your regular home medications with the following changes: -Take Dexamethasone (a steroid) 4mg every 6hours. It is very important not to abruptly stop this medication. Discuss with the physicians at [facility] when to taper this medication. -Take Keppra 1500mg by mouth twice per day (12hours apart). -The level of Dilantin was high. Start taking Dilantin 100mg twice per day on 11/21/17. Go to Dr. Rodriguez or Dr. Browne's office on Tuesday to check the levels again. -Take Augmentin (an antibiotic) two times per day for the 3 more days. Your first dose will be tonight, and your last dose will be Tuesday night (11/21). Follow-up: -You have an appointment on 11/23 at [facility] You should bring the CDs of images provided to the appointment. -Make an appointment with Dr. Browne or Dr. Rodriguez on Tuesday to check your Dilantin levels. Please return to the Emergency Department if you have any new, worsening, or concerning symptoms. Referrals: Magen Rodriguez PA [Primary Care Provider] - Wilfred Browne DO [Staff Physician] - - Home Medications Comprehensive Discharge Medication List: Ambulatory Orders Sennosides/Docusate Sodium [Senexon-S Tablet] 1 each PO PRN PRN 11/16/17 levETIRAcetam [Keppra -] 1,500 mg PO BID 11/16/17 Amoxicillin/Potassium Clav [Augmentin 875-125 Tablet] 1 each PO BID #7 tablet Dexamethasone [Decadron -] 4 mg PO BID #224 tablet 11/18/17
[2017-11-18] MEDS ORDERED: PT OWN MED DRAWER 7, Y5N ONE (20:08)
[2017-11-18] MEDS ORDERED: ACETAMINOPHEN 1000 MG/100 ML VIAL (NON FORMULARY) IVPB PRN (20:39)
[2017-11-18] MEDS ORDERED: SODIUM CHLORIDE 1,000 ML IV SCH (20:39)
[2017-11-18] MEDS ORDERED: PIPERACIL/TAZOB 3.375 GM 3.375 GM/50 ML PREMIX IVPB ONE (20:39)
[2017-11-18] MEDS ORDERED: PIPERACILLIN/TAZOB 3.375 GM 3.375 GM in DEXTROSE 5%-WATER - 50 ML IVPB ONE (20:45)
[2017-11-18] MEDS ORDERED: ACETAMINOPHEN 325 MG TABLET (FP) PO PRN (20:45)
[2017-11-19 01:13] LABS: HEMATOCRIT 22.2 % (32.4-45.2); HEMOGLOBIN 7.5 GM/dL (10.7-15.3); MCH 31.5 pg (25.7-33.7); MCHC 33.8 g/dl (32.0-36.0); MEAN CELL VOLUME 93.4 fl (80-96); MEAN PLT VOLUME 6.6 fl (7.5-11.1); PLATELET COUNT 109 K/MM3 (134-434); RBC 2.38 M/mm3 (3.60-5.2); WHITE BLOOD COUNT 4.4 K/mm3 (4.0-10.0)
[2017-11-19] MEDS: AMPICILLIN NA/SULBACTAM NA 1.5 GM in SODIUM CHLORIDE 100 ML IVPB SCH ×4 (02:19→21:24)
--- NOTE | 2017-11-19 02:20 | HOSP ---
Subjective - Review of Symptoms Subjective: Was called to the bedside by the nurse because the patient had a large bowel movement. Patient was alert and responding to questions appropriately. Large, loose, bloody bowel movement seen at bedside with clots in it. Patient denies abdominal pain, shortness of breath, chest pain, headache, dizziness. Physical Examination Vital Signs: Vital Signs Temperature 98.5 F 11/18/17 18:00 Pulse Rate 85 11/18/17 18:00 Respiratory Rate 19 11/18/17 18:00 Blood Pressure 149/79 11/18/17 18:00 O2 Sat by Pulse Oximetry (%) 100 11/18/17 09:00 Findings/Remarks: Patient a&ox3 lying in bed in no distress. Mucous membranes moist. Conjunctival pallor noted. Lungs CTA b/l Heart regular s1, s2 heard, no peripheral edema. Abdomen soft, nontender, non distended, bowel sounds heard. Rectal: no external hemorrhoids seen. No masses felt. No internal hemorrhoids felt. Rectal vault empty. Good rectal tone. Small amout of oozing blood seen leaking out of anus. Labs: CBC, BMP 11/19/17 00:50 11/18/17 07:05 Hospitalist Encounter Assessment: -Patient with no history of GIB with large, bloody bowel movement and oozing seen on rectal exam. -Stat CBC reveals Hb drop from 13 -> 7.5. -Vital signs stable at this time. Patient remains asymptomatic. -In light of acute drop and active oozing, Ordered stat type and screen and 1 unit PRBCs. -Bolused 500cc NS and increased maintenance fluids from 42 to 75. -Will re-check CBC after transfusion -Increased frequency of vital sign checks -If patient deteriorates or becomes hemodynamically unstable, will consider transfer to ICU for closer monitoring. Visit type - Emergency Visit Emergency Visit: Yes ED Registration Date: 11/16/17 Care time: The patient presented to the Emergency Department on the above date and was hospitalized for further evaluation of their emergent condition. - New Patient This patient is new to me today: Yes Date on this admission: 11/19/17 - Critical Care Critical Care patient: Yes Total Critical Care Time (in minutes): 60 Critical Care Statement: The care of this patient involved high complexity decision making to prevent further life threatening deterioration of the patient 's condition and/or to evaluate & treat vital organ system(s) failure or risk of failure.
[2017-11-19] MEDS: DEXAMETHASONE SOD PHOSPHATE 4 MG/1 ML VIAL IVPB SCH ×3 (02:28→09:00)
[2017-11-19] MEDS: PANTOPRAZOLE SODIUM 80 MG in SODIUM CHLORIDE 100 ML IVPB SCH ×2 (07:03→17:00)
--- NOTE | 2017-11-19 08:55 | CON.GI ---
Consult Consult Specialty:: GI: Dr. Tyler covering for Dr. aHrding Referred by:: Hospitalist Service Reason for Consultation:: Rectal Bleeding - History of Present Illness Chief Complaint: Rectal Bleeding History of Present Illness: 72F originally admitted to [facility] 11/16 for slurred speech and inability to walk. She has a history of stage IV GBM, initially treated in [place] as part of a clinical trial at [facility] and was recently moved up to [place] to pursue further treatment (? [place] or [facility]. family deciding). CT scan of the brain revealed brain lesions with extensive vaogenic edema and midline shift. She was seeb by neurology and switched to more frequent decadron dosing (was on ? chronic BID PO decadron therapy prior to admission per med list). She was also given 325mg ASA three days ago. Mental status improved and plan was for discharge. Called 5:30 this morning by medical referral coordinator for evaluation of rectal bleeding. Dr. Foley described Ms. Kuhn having 2 large bloody bowel movements with clots during the night. Hgb 11/18 in AM was 13.6. Hgb at 1AM this morning was 7.5. Dr. Foley explained that she was transiently hypotensive as well and a 500 CC NS bolus was given. There is no recording of the hypotensive episode. She was transferred to the ICU for further monitoring. I spoke with Ms. Kuhn and her daughter Naren via telephone this morning to discuss the clinical situation. Naren explained that her mother has had two previous episodes of GI bleeding in the past. The first was in 2012 and the second was in 2016 requiring hospitalizations. She had a colonoscopy due to the bleeding in 2016 and Naren says diverticulosis was found and a polyp was removed. Ms. Kuhn says that she had a colonoscopy prior to this as well and that diverticulosis was found. She is uncertain if she had an upper endoscopy. She currently denies any abdominal pain, nausea, vomiting, dysphagia, odynophagia. She was receiving her 1st unit PRBC. - History Source History Provided By: Patient, Family Member Limitations to Obtaining History: No Limitations - Past Medical History Cardio/Vascular: Yes: HTN Gastrointestinal: Yes: Diverticulosis (with diverticular bleeding 2012), Other (colon polyp) Heme/Onc: Yes: Other (Breast Cancer) - Past Surgical History Past Surgical History: Yes: Hysterectomy (vs. ? removal of fibroid) Additional Surgical History: Lumpectomy - Alcohol/Substance Use Hx Alcohol Use: No History of Substance Use: reports: None - Smoking History Smoking history: Never smoked Have you smoked in the past 12 months: No - Social History Usual Living Arrangement: Alone ADL: Family Assistance History of Recent Travel: No Home Medications - Allergies Allergies/Adverse Reactions: Allergies Allergy/AdvReac Type Severity Reaction Status Date / Time No Known Allergies Allergy Verified 11/16/17 02:25 - Home Medications Home Medications: Ambulatory Orders Sennosides/Docusate Sodium [Senexon-S Tablet] 1 each PO PRN PRN 11/16/17 levETIRAcetam [Keppra -] 1,500 mg PO BID 11/16/17 Amoxicillin/Potassium Clav [Augmentin 875-125 Tablet] 1 each PO BID #7 tablet Dexamethasone [Decadron -] 4 mg PO BID #224 tablet 11/18/17 Phenytoin Na Extended [Dilantin -] 100 mg PO BID #60 capsule 11/18/17 Family Disease History - Family Disease History Other Family History: Non contribuatory Review of Systems - Review of Systems Constitutional: denies: Chills, Fever Cardiovascular: denies: Chest Pain Respiratory: denies: SOB Gastrointestinal: denies: Abdominal Pain, Constipation, Diarrhea Physical Exam-GI Vital Signs: Vital Signs Temperature 98.3 F 11/19/17 0930 Pulse Rate 90 11/19/17 0930 Respiratory Rate 16 11/19/17 0930 Blood Pressure 104/63 11/19/17 0930 O2 Sat by Pulse Oximetry (%) 100 % on RA 11/18/17 0930 Constitutional: Yes: Calm Eyes: No: Sclera Icterus Cardiovascular: Yes: Regular Rate and Rhythm Respiratory: Yes: CTA Bilaterally Gastrointestinal Inspection: Yes: Scars (+ pelvic surgical scar). No: Distention ...Auscultate: Yes: Normoactive Bowel Sounds ...Palpate: No: Hepatomegaly, Splenomegaly, Tenderness ...Percussion: No: Tympanitic ...Rectal Exam: Yes: Other (copious maroon blood with clots) Edema: No (No LE edema) Neurological: Yes: Alert (Patient alert but oriented to person only. She believes that she is in [facility], that it is 2016 and does not recall the month) Labs: CBC, BMP 11/19/17 00:50 11/18/17 07:05 INR, PTT INR 1.04 (0.82-1.09) 11/16/17 02:00 Laboratory Tests 11/19/17 08:45 Hgb 11.1 D 11.1 Hgb reflects blood drawn just after 1st U PRBC was given this morning Imaging - Results Cat Scan: Report Reviewed (CT abd/pelvis: normal sized liver, diverticulosis, ? fibroid uterus with ? adnexal mass) Problem List - Problems (1) GI bleed Assessment/Plan: While Hgb noted to be 7.5 at 1AM this morning, I would suspect with a 6 gram drop in hemoglobin the patient would demonstrate to more hemodyyanmic instability. While the CBC was drawn just after 1 U PRBC, the correction from 7 to 11 was well above expected. The differential to the etiology of her bleeding remains broad: ? brisk bleeding from upper GI source given chronic steroid use, recent ASA therapy / rupa ulcer from increased ICP given tumors with mass effect. Has history of diverticular bleed in past as well, which would be high in differential currently. I discussed Ms. Kuhn's current situation with both Ms. Kuhn and her daughter via telephone this morning and explained the plan: 1. CTA to help localize potential source of bleeding prior to invasive testing 2. Surgical consultation 3. No PPI bolus given prior to drip being initiated. Ordered Protonix 80mg IVPB x 1 now then resume. PPI Drip. Monitor magnesium levels while on PPI. NPO / IV hydration 4. Discussed possibility of EGD/Colonoscopy with Ms. Kuhn and her daughter for further evaluation. Discussed potential risks of the procedure like but not limited to bleeding, perforation requiring surgery to repair, infection, sedation medication effects all of which could be potentially life threatening. They are amenable to these procedures if they are felt to be clinically indicated I spoke with Dr. Patino as well. Stated that while Ms. Kuhn has a lower seizure threshold, no contraindication to endoscopic evaluations Continued ICU care Code(s): K92.2 - GASTROINTESTINAL HEMORRHAGE, UNSPECIFIED
[2017-11-19 08:58] LABS: HEMATOCRIT 31.8 % (32.4-45.2); HEMOGLOBIN 11.1 GM/dL (10.7-15.3); MCH 31.4 pg (25.7-33.7); MEAN CELL VOLUME 89.8 fl (80-96); MEAN PLT VOLUME 6.1 fl (7.5-11.1); PLATELET COUNT 130 K/MM3 (134-434); RBC 3.54 M/mm3 (3.60-5.2)
--- NOTE | 2017-11-19 09:10 | PN ---
Progress Note (short form) - Note Progress Note: NEUROSURGERY Transferred to ICU GI bleed noted PE: AF, VSS Not in acute distress HEENT- NC/AT; Neck- supple; Cor- RR; Lungs- CTA B; Abd- benign; Ext- no sign of DVT Speech more fluent CN_ intact except minimal L facial assymmetry and L tongue deviation; Motor- dense L hemiparesis 3/5 L hand , 1/5 prox L UE, l LE 3/5; Sensation- grossly intact; DTR-1+ Brain MRI- R lateral frontal> parietal 4 x4 x4.5 cm multilobulated rim enhancing lesion with associated vasogenic edema and gliosis, mild mass effect, some ependymal wall (lat ventricle) enhancement; no HCP Hgb 7.5 to 11.1 after transfusion Blood culture negative Extensive recurrent/persistent R lateral frontal GBM Cont Decadron and keppra Change to PO decadron and taper to 4 mg bid On Unasyn per ID GI care (endoscopy/colonoscopy) d/w Dr Galloway
--- NOTE | 2017-11-19 09:10 | PN ---
Teaching Attending Note Name of Resident: Alberta Garcia ATTENDING PHYSICIAN STATEMENT I saw and evaluated the patient. I reviewed the resident's note and discussed the case with the resident. I agree with the resident's findings and plan as documented with exceptions mentioned below. SUBJECTIVE: Patient seen and examined. Denies any nausea, vomiting, dizziness, abdominal pain, chest pain, palpitations or new weakness. OBJECTIVE: Vital Signs Period Temp Pulse Resp BP Sys/Levin Pulse Ox Last 24 Hr 98 F-99.1 F 76-88 16-20 110-149/62-79 100 Intake & Output 11/16/17 11/17/17 11/18/17 11/19/17 23:59 23:59 23:59 23:59 Intake Total 42 1256 2362 900 Output Total 2100 600 Balance -2057 656 2362 900 Weight 117 lb General: lying in bed in no acute distress, positive pallor Abdomen: soft obese NT throughout, no voluntary or involuntary guarding or rigidity, positive bowel sounds rectal: minimal dried blood in per-rectal area Neuro: slurred speech, left sided weakness unchanged, mentating well Home Medication List Medication Instructions Recorded Confirmed Type Sennosides/Docusate Sodium 1 each PO PRN PRN 11/16/17 11/16/17 History [Senexon-S Tablet] levETIRAcetam [Keppra -] 1,500 mg PO BID 11/16/17 11/16/17 History Active Medications Generic Name Dose Route Start Last Admin Trade Name Freq PRN Reason Stop Dose Admin Acetaminophen 650 mg 11/18/17 20:45 Tylenol - PO Q6H PRN FEVER Atorvastatin Calcium 40 mg 11/19/17 22:00 Lipitor - PO HS LENNY Chlorhexidine Gluconate 1 applic 11/19/17 22:00 Hibiclens For Decolonization - TP HS LENNY Dexamethasone Sodium Phosphate 4 mg 11/18/17 21:00 11/19/17 02:28 Decadron Injection - IVPB 4 mg Q6H-IV LENNY Administration Ampicillin Sodium/Sulbactam 100 mls @ 200 mls/hr 11/17/17 15:00 11/19/17 02: 19 Sodium 1.5 gm/ Sodium Chloride IVPB 200 mls/hr Q6H-IV LENNY Administration Sodium Chloride 1,000 mls @ 42 mls/hr 11/18/17 20:39 11/18/17 22:02 Normal Saline - IV 42 mls/hr ASDIR LENNY Administration Pantoprazole Sodium 80 mg/ 100 mls @ 10 mls/hr 11/19/17 05:15 11/19/17 07:03 Sodium Chloride IVPB 10 mls/hr Q10H LENNY Administration 8 MG/HR Levetiracetam 1,500 mg 11/18/17 22:00 11/18/17 22:03 Keppra Injection - IVPB 1,500 mg BID LENNY Administration Mupirocin 1 applic 11/19/17 10:00 Bactroban Ointment (For Decolonization) - NS 11/24/17 09:59 BID LENNY Laboratory Results - last 24 hr 11/19/17 11/19/17 11/19/17 00:50 02:00 03:00 WBC 4.4 RBC 2.38 L D Hgb 7.5 L D Hct 22.2 L D MCV 93.4 MCH 31.5 MCHC 33.8 RDW 13.0 Plt Count 109 L D MPV 6.6 L Blood Type O POSITIVE O POSITIVE Antibody Screen Negative Negative Crossmatch See Detail See Detail 11/19/17 08:45 WBC 5.0 RBC 3.54 L D Hgb 11.1 D Hct 31.8 L D MCV 89.8 MCH 31.4 MCHC 35.0 RDW 13.0 Plt Count 130 L MPV 6.1 L Blood Type Antibody Screen Crossmatch Microbiology 11/16/17 02:00 Blood - Peripheral Venous Blood Culture - Preliminary NO GROWTH OBTAINED AFTER 72 HOURS, INCUBATION TO CONTINUE FOR 2 DAYS. 11/16/17 01:41 Blood - Peripheral Venous Blood Culture - Preliminary NO GROWTH OBTAINED AFTER 72 HOURS, INCUBATION TO CONTINUE FOR 2 DAYS. 11/17/17 17:00 Nasopharyngeal Swab Influenza Types A,B Antigen (MANAN) - Final 11/17/17 17:00 Nasopharyngeal Swab - Final 11/16/17 05:34 Urine - Urine Vaughan Urine Culture - Final NO GROWTH OBTAINED ASSESSMENT AND PLAN: 72 yom with PMHx of GBM s/p surgery/Chemoradiation, Stage I Breast Ca in 2011 ( refused hormonal therapy), HLD admitted with slurred speech/left hemiparesis, found with recurrent GBM now with acute GI haemorrhage and acute blood loss anemia -Acute GI haemorrhage, presentation and history suggestive of diverticular bleed , cannot r/o Upper GI etiology though low suspicion given hemodynamic stability and mentation -Acute blood loss anemia -Recurrent GBM with dysarthria/Left hemiparesis -Fevers, ?Aspiration, CT chest neg for concerns. -Breast Ca, CT A/P neg for mets -HLD Plan: Transferred to ICU. Transfuse 3 units PRBC, 2 large bore IVs, aggressive fluid resuscitation. GI consulted with Dr. Galloway, case discussed, plan for CTA stat and surgery consult Will follow up for further recs/interventions. COntinue Protonix drip, serial H/ h. Neurology/neurosurgery/oncology/ID input appreciated. Decadron 4 mg QID till outpatient follow up. Speech/swallow input noted, soft diet with thin liquids and aspiration precautions. NPo for now given above Trasntion to augmentin given no concerns on CT chest, for a short course. Dilantin held, repeat levels on Tuesday, resume accordingly. Daughter was agreable for SNF yesterday, dispo on hold given GI bleed has [facility] appt [place]23. Plan discussed with Dr. Alba, Dr Galloway and nursing. Total critical care time spent 35 min.
[2017-11-19 09:14] LABS: INR 1.2 (0.82-1.09); PROTHROMBIN TIME (PATIENT) 13.6 SEC (9.98-11.88)
[2017-11-19 09:23] LABS: ALBUMIN 2.4 g/dl (3.4-5.0); ANION GAP 4 (8-16); BILIRUBIN,TOTAL 0.3 mg/dL (0.2-1.0); BLOOD UREA NITROGEN 13 mg/dL (7-18); CHLORIDE 108 mmol/L (98-107); CO2 32 mmol/L (21-32); CREATININE 0.5 mg/dL (0.55-1.02); GLUCOSE,RANDOM 105 mg/dL (74-106); SGOT/AST 11 U/L (15-37); SODIUM 144 mmol/L (136-145); TOT PROT 4.8 g/dl (6.4-8.2)
[2017-11-19 09:31] LABS: ALK PHOS 61 U/L (45-117); SGPT/ALT 14 U/L (12-78)
[2017-11-19] MEDS: MUPIROCIN 2% TOPICAL OINTMENT FOR DECOLONIZATION NS SCH ×2 (09:38→21:24)
[2017-11-19] MEDS: levETIRAcetam 500 MG/5 ML INJECTION VIAL IVPB SCH ×2 (09:39→21:25)
--- NOTE | 2017-11-19 09:41 | CONSULT ---
Consult Consult Specialty:: PULM/CCM Referred by:: EDDIE Reason for Consultation:: GI Bleed - History of Present Illness Chief Complaint: Acute blood loss lower GI tract History of Present Illness: 72 F, with listed extensive medical/surgical history. Admitted 11/16 for slurred speech and inability to walk. Known stage IV GBM, initially treated in [place] as part of a clinical trial at [facility] and was recently moved up to [place] to pursue further treatment. CT imaging revealed multiple lesions with extensive vaogenic edema and midline shift. Placed on increased doses of decadron. Noted to have 2 large bloody bowel movements with clots overnight. Noted to have a significant drop in her H&H. Currently being seen by GI in the ICU. She is currently hemodynamically stable. She has received 1 unit of pRBCs and is about the receive her second unit. She denies CP or SOB. - History Source History Provided By: Medical Record Limitations to Obtaining History: Poor Historian - Past Medical History Cardio/Vascular: Yes: HTN Gastrointestinal: Yes: Diverticulosis (with diverticular bleeding 2012), Other (colon polyp) - Past Surgical History Past Surgical History: Yes: Hysterectomy Additional Surgical History: Lumpectomy - Alcohol/Substance Use Hx Alcohol Use: No History of Substance Use: reports: None - Smoking History Smoking history: Never smoked Have you smoked in the past 12 months: No - Social History Usual Living Arrangement: Alone ADL: Family Assistance History of Recent Travel: No Home Medications - Allergies Allergies/Adverse Reactions: Allergies Allergy/AdvReac Type Severity Reaction Status Date / Time No Known Allergies Allergy Verified 11/16/17 02:25 - Home Medications Home Medications: Ambulatory Orders Sennosides/Docusate Sodium [Senexon-S Tablet] 1 each PO PRN PRN 11/16/17 levETIRAcetam [Keppra -] 1,500 mg PO BID 11/16/17 Amoxicillin/Potassium Clav [Augmentin 875-125 Tablet] 1 each PO BID #7 tablet Dexamethasone [Decadron -] 4 mg PO BID #224 tablet 11/18/17 Phenytoin Na Extended [Dilantin -] 100 mg PO BID #60 capsule 11/18/17 Family Disease History - Family Disease History Other Family History: Non contribuatory Review of Systems - Review of Systems Constitutional: reports: Malaise, Weakness. denies: Chills, Fever Eyes: reports: No Symptoms HENT: reports: No Symptoms Neck: reports: No Symptoms Cardiovascular: reports: No Symptoms Respiratory: reports: No Symptoms Gastrointestinal: reports: Rectal Bleeding Genitourinary: reports: No Symptoms Breasts: reports: No Symptoms Reported Musculoskeletal: reports: No Symptoms Integumentary: reports: No Symptoms Neurological: reports: Confusion Hematology/Lymphatic: reports: No Symptoms Psychiatric: reports: No Symptoms Physical Exam Vital Signs: Vital Signs Temperature 98.3 F 11/19/17 07:49 Pulse Rate 88 11/19/17 07:49 Respiratory Rate 16 11/19/17 07:49 Blood Pressure 110/62 11/19/17 07:49 O2 Sat by Pulse Oximetry (%) 100 11/18/17 21:00 Constitutional: Yes: No Distress, Thin Eyes: Yes: Conjunctiva Clear, EOM Intact. No: Sclera Icterus HENT: No: Epistaxis Neck: Yes: Supple, Thyromegaly Cardiovascular: Yes: Regular Rate and Rhythm Respiratory: Yes: CTA Bilaterally. No: Accessory Muscle Use Gastrointestinal: Yes: Normal Bowel Sounds, Soft, Rectal Bleeding. No: Ascites , Pulsatile Mass, Tenderness, Tenderness, Epigastrium, Tenderness, Rebound, Vomiting Renal/: Yes: WNL Musculoskeletal: Yes: WNL Extremities: Yes: WNL Edema: No Peripheral Pulses WNL: Yes Integumentary: Yes: WNL Neurological: Yes: Alert ...Motor Strength: WNL Psychiatric: Yes: Alert Labs: CBC, BMP 11/19/17 08:45 11/19/17 08:45 Imaging - Results Chest X-ray: Report Reviewed, Image Reviewed Cat Scan: Report Reviewed, Image Reviewed Assessment/Plan Brain malignant neoplasm Breast mass in female Cerebrovascular accident (Acute) Left hemiparesis (Acute) Acute GI Bleed Transfusional support Serial CBC GI evaluation noted Surgical evaluation has been called There is a consideration for IR / Radiographic evaluation SCDs Noted PPI drip ordered Decolonization ICU monitoring Dr Alba Critical care time spent in reviewing chart, evaluating patient and formulating plan - 36 minutes.
[2017-11-19] MEDS: DEXAMETHASONE 4 MG TABLET (FP) PO SCH ×4 (09:48→21:24)
[2017-11-19] MEDS ORDERED: PANTOPRAZOLE SODIUM 40 MG VIAL IVPB ONE ×2 (10:00→10:14)
--- NOTE | 2017-11-19 10:22 | PN ---
Progress Note (short form) - Note Progress Note: repeat CMP obtained this morning. BUN is not elevated. While this goes against significant UGIB, will need to remain in differential. Problem List - Problems (1) GI bleed Code(s): K92.2 - GASTROINTESTINAL HEMORRHAGE, UNSPECIFIED
--- NOTE | 2017-11-19 10:45 | PN ---
Progress Note (short form) - Note Progress Note: Naren was present at bedside. We discussed options including observation. She wants to proceed with CTA and the potential EGD/Colonoscopy as does Ms. Kuhn. I explained placement of NGT would be the most efficient way to prep Ms. Kuhn for colonoscopy. They both deferred and Ms. Kuhn wanted to drink the gallon of golytely Problem List - Problems (1) GI bleed Code(s): K92.2 - GASTROINTESTINAL HEMORRHAGE, UNSPECIFIED
[2017-11-19] MEDS ORDERED: PEG3350/SOD SULF,BICARB,CL/KCL 4,000 ML SOLN.RECON PO STA (11:35)
--- NOTE | 2017-11-19 11:35 | PN ---
Progress Note (short form) - Note Progress Note: radiology called. Ms. Kuhn had CT scan with contrast yesterday and questioned regarding another dye load. Patient currently stable hemodynamically without further rectal bleeding. Given recent dye load would change my plan: EGD/colon first to look for source of bleeding can be treated prior to subjecting her to dye load. This way if continued bleeding without clear source of bleeding after procedures, CTA / possible therapeutic angiogram by IR would still be viable options and safer in terms of compromising renal function. Problem List - Problems (1) GI bleed Code(s): K92.2 - GASTROINTESTINAL HEMORRHAGE, UNSPECIFIED
[2017-11-19 12:19] LABS: HEMATOCRIT 38.1 % (32.4-45.2); HEMOGLOBIN 13.1 GM/dL (10.7-15.3); MCHC 34.3 g/dl (32.0-36.0); MEAN CELL VOLUME 90.3 fl (80-96); MEAN PLT VOLUME 6.7 fl (7.5-11.1); PLATELET COUNT 119 K/MM3 (134-434); RBC 4.22 M/mm3 (3.60-5.2); RDW 13.7 % (11.6-15.6); WHITE BLOOD COUNT 5.4 K/mm3 (4.0-10.0)
--- NOTE | 2017-11-19 12:37 | PN ---
Progress Note (short form) - Note Progress Note: Repeat Hgb s/p 2 U PRBC 13. even after 2 units an improvement from 7 to 13 not typical. No overt bleeding since earlier this AM. patient somnolent currently. Given that she would have to start drinking bowel prep on her own as NGT was refused and that she remains hemodynamically stable without further bleeding, observing for now. daughter in agreement. If rebleeding / continued drop in H/H , plan as previously outlined. Problem List - Problems (1) GI bleed Code(s): K92.2 - GASTROINTESTINAL HEMORRHAGE, UNSPECIFIED
--- NOTE | 2017-11-19 12:52 | PN ---
Progress Note (short form) - Note Progress Note: Seen in follow up. Admitted to ICU overnight following bloody bowel movement, and reported 4g drop in Hb. Has subsequently been transfused 2 units, with most recent Hb 13. Meds reviewed. Current Medications Generic Name Dose Route Start Last Admin Trade Name Freq PRN Reason Stop Dose Admin Acetaminophen 650 mg 11/18/17 20:45 Tylenol - PO Q6H PRN FEVER Atorvastatin Calcium 40 mg 11/19/17 22:00 Lipitor - PO HS LENNY Chlorhexidine Gluconate 1 applic 11/19/17 22:00 Hibiclens For Decolonization - TP HS LENNY Dexamethasone 4 mg 11/19/17 10:00 11/19/17 14:23 Decadron - PO 4 mg QID LENNY Administration Ampicillin Sodium/Sulbactam 100 mls @ 200 mls/hr 11/17/17 15:00 11/19/17 14: 40 Sodium 1.5 gm/ Sodium Chloride IVPB 200 mls/hr Q6H-IV LENNY Administration Sodium Chloride 1,000 mls @ 42 mls/hr 11/18/17 20:39 11/18/17 22:02 Normal Saline - IV 42 mls/hr ASDIR LENNY Administration Pantoprazole Sodium 80 mg/ 100 mls @ 10 mls/hr 11/19/17 05:15 11/19/17 07:03 Sodium Chloride IVPB 10 mls/hr Q10H LENNY Administration 8 MG/HR Levetiracetam 1,500 mg 11/18/17 22:00 11/19/17 09:39 Keppra Injection - IVPB 1,500 mg BID LENNY Administration Mupirocin 1 applic 11/19/17 10:00 11/19/17 09:38 Bactroban Ointment (For Decolonization) - NS 11/24/17 09:59 1 applic BID LENNY Administration On exam: General: Supine in bed, comfortable, cachexic. Extremities: No pallor, no icterus. Chest: breathing comfortably, clear to auscultation CVS: S1, S2, no gallop or murmur. Abdomen: Soft, non-tender. Neuro: Drowsy but rousable, non-focal. Skin: intact, no rash CBC, BMP 11/19/17 11:44 11/19/17 08:45 Assessment. Known GBM, admitted for changed mental status (?subsequently improved), now with significant GI bleed. Gastroenterology following - appears to be stable - endoscopy not planned at this time. Most recent Hb 13.1 following 2 units. Suspect that prior Hb of 7.5 was artefactual - (likely diluted - also low platelets on that CBC). Unclear benefit steroids at this time. High index of suspicion for upper GI hemorrhage, not unexpected with likely recent history of significant steroids exposure. Continue IV PPI. No specific oncology recommendations at this time. [place] [facility] [place]
[2017-11-19] MEDS ORDERED: PT OWN MED DRAWER 7, Y5N ONE (14:44)
[2017-11-19 17:53] LABS: HEMOGLOBIN 12.2 GM/dL (10.7-15.3); MCH 31.1 pg (25.7-33.7); MCHC 34.8 g/dl (32.0-36.0); MEAN CELL VOLUME 89.3 fl (80-96); MEAN PLT VOLUME 6.7 fl (7.5-11.1); PLATELET COUNT 121 K/MM3 (134-434); RBC 3.92 M/mm3 (3.60-5.2); RDW 14.1 % (11.6-15.6); WHITE BLOOD COUNT 5.7 K/mm3 (4.0-10.0)
--- NOTE | 2017-11-19 17:55 | CONSULT ---
Consult Consult Specialty:: General Surgery Referred by:: Randolph Tyler Reason for Consultation:: GI bleeding - History of Present Illness Chief Complaint: bloody BMs with clots overnight and am History of Present Illness: 72yo F with stage 4 GBM as noted, on chronic steroids, initially admitted for neurologic changes and was about to be discharged yesterday evening, when she had bloody BMs with clots. She had 325mg ASA 3 in ER. She has had past episodes of GIB secondary to diverticulosis, per GI notes. She was transferred to ICU when labs overnight showed large drop in Hb to 7.5, given 2 units PRBC, but subsequent labs have shown stable Hb at 11 and 13, suggesting that the drop may have been artifactual or exaggerated. Since earlier today, she has not had further bloody BMs. Neurologic status seems to be at baseline for her. CTA was considered earlier today, but she had CT with IV contrast load yesterday, and then Hb has been stable. Endoscopy was also planned, though she declined NGT for prep administration, and given the stability in blood count and hemodynamics , EGD/colonoscopy are being deferred for now. If she rebleeds, GI does plan to scope; imaging would be considered if a source cannot be identified directly. Surgery is consulted as well. The patient states she has no pain at this time, and did not have any with her melena. No headache, no fever, though she states she "feels warm all the time." No nausea or vomiting. Her speech is somewhat difficult to interpret, and she speaks slowly and quietly. There is no family at bedside. - History Source History Provided By: Patient (minimal - knows that she had diverticulosis with bleeding in past), Medical Record (most hx from chart) Limitations to Obtaining History: Poor Historian - Past Medical History [employer]: Yes: Other (stage 4 GBM - was on clinical trial in [place], [place] eval [place] [facility] [place]; on chronic steroids) Cardio/Vascular: Yes: HTN Gastrointestinal: Yes: Diverticulosis (with diverticular bleeding 2012), Other (colon polyp) Reproductive: Yes: Postmenopausal ...: No Heme/Onc: Yes: Cancer (brain) Musculoskeletal: Yes: Hemiparesis (left) - Past Surgical History Past Surgical History: Yes: Colonoscopy, (pt reports having had one "when I had my babies"), Hysterectomy (vs. ? removal of fibroid), Mastectomy ( left partial/large lumpectomy) - Alcohol/Substance Use Hx Alcohol Use: No History of Substance Use: reports: None - Smoking History Smoking history: Never smoked Have you smoked in the past 12 months: No - Social History Usual Living Arrangement: Alone ADL: Family Assistance History of Recent Travel: No Home Medications - Allergies Allergies/Adverse Reactions: Allergies Allergy/AdvReac Type Severity Reaction Status Date / Time No Known Allergies Allergy Verified 11/16/17 02:25 - Home Medications Home Medications: Ambulatory Orders Sennosides/Docusate Sodium [Senexon-S Tablet] 1 each PO PRN PRN 11/16/17 levETIRAcetam [Keppra -] 1,500 mg PO BID 11/16/17 Amoxicillin/Potassium Clav [Augmentin 875-125 Tablet] 1 each PO BID #7 tablet Dexamethasone [Decadron -] 4 mg PO BID #224 tablet 11/18/17 Phenytoin Na Extended [Dilantin -] 100 mg PO BID #60 capsule 11/18/17 Family Disease History - Family Disease History Family History: Unable to Obtain Other Family History: Noncontributory Review of Systems Unable to obtain ROS, reason: ltd - pt poor historian - Review of Systems Constitutional: denies: Chills, Fever Cardiovascular: denies: Chest Pain, Shortness of Breath Gastrointestinal: reports: Melena, Rectal Bleeding. denies: Abdominal Pain, Constipation, Diarrhea, Nausea, Vomiting Integumentary: denies: Change in Color, Rash Neurological: reports: Change in Speech (on admission), Pre-Existing Deficit (L hemiparesis), Unsteady Gait (on admission) Physical Exam Vital Signs: Vital Signs Temperature 98 F 11/19/17 16:00 Pulse Rate 81 11/19/17 16:00 Respiratory Rate 16 11/19/17 16:00 Blood Pressure 118/63 11/19/17 16:00 O2 Sat by Pulse Oximetry (%) 100 11/19/17 09:00 Constitutional: Yes: No Distress, Calm, Thin Eyes: Yes: Conjunctiva Clear, EOM Intact HENT: Yes: Atraumatic, Normocephalic Neck: Yes: Supple, Trachea Midline Cardiovascular: Yes: Regular Rate and Rhythm, Murmur Respiratory: Yes: Regular, CTA Bilaterally Gastrointestinal: Yes: Soft, Distention (mild), Hyperactive Bowel Sounds, Other (healed pelvic scars). No: Melena (small bit of dark smear on blue glove - cannot tell if blood or stool), Rectal Bleeding, Tenderness ...Rectal Exam: Yes: Sphincter Tone Normal, Other (no red blood, see above). No : Hemorrhoids/External Breast(s): Yes: Left (healed scar from partial mastectomy) Musculoskeletal: Yes: Muscle Weakness (left side) Extremities: No: Cool, Cyanosis Integumentary: No: Jaundice, Rash Neurological: Yes: Alert, Confusion, Dysarthria Labs: CBC, BMP 11/19/17 11:44 11/19/17 08:45 Abnormal Lab Results 11/19/17 11/19/17 11/19/17 00:50 02:00 03:00 RBC 2.38 L D Hgb 7.5 L D Hct 22.2 L D Plt Count 109 L D MPV 6.6 L PT with INR INR Chloride Anion Gap Creatinine Calcium AST Total Protein Albumin Crossmatch See Detail See Detail 11/19/17 11/19/17 11/19/17 08:45 08:45 08:45 RBC 3.54 L D Hgb Hct 31.8 L D Plt Count 130 L MPV 6.1 L PT with INR 13.60 H INR 1.20 H Chloride 108 H Anion Gap 4 L Creatinine 0.5 L Calcium 8.0 L AST 11 L Total Protein 4.8 L Albumin 2.4 L Crossmatch 11/19/17 11/19/17 11:44 17:45 RBC Hgb Hct Plt Count 119 L 121 L MPV 6.7 L 6.7 L PT with INR INR Chloride Anion Gap Creatinine Calcium AST Total Protein Albumin Crossmatch INR, PTT INR 1.20 (0.82-1.09) H 11/19/17 08:45 Problem List - Problems (1) Gastrointestinal hemorrhage with melena Assessment/Plan: had stool with blood clots overnight and am no further a[place]and[place] bleeding, has remained HD stable and with stable Hb got 2u PRBC on chronic steroids and with h/o diverticulosis - could be upper or lower, though proximal diverticular bleeding more likely given history GI is prepared to scope if rebleeding occurs could not offer surgical intervention without localizing bleeding source also, given patient's clinical condition and comorbidities, major surgery could be very high risk no indication for surgery at this time will be happy to remain available and follow peripherally please call with any questions This patient is critically ill. Time spent reviewing chart, examining patient, talking with providers and/or family and documentation is 35 minutes. Thank you for the opportunity to participate in the care of this patient. Code(s): K92.1 - MELENA (2) Diverticulosis large intestine w/o perforation or abscess w/bleeding Assessment/Plan: has been source of GIB in past - could be again, though cannot rule out upper GIB, given chronic steroids and brain malignancy agree with upper endoscopy at some point, and upper/lower urgently if rebleeding occurs Code(s): K57.31 - DVRTCLOS OF LG INT W/O PERFORATION OR ABSCESS W BLEEDING (3) Glioblastoma multiforme of brain Code(s): C71.9 - MALIGNANT NEOPLASM OF BRAIN, UNSPECIFIED (4) Hypertension Code(s): I10 - ESSENTIAL (PRIMARY) HYPERTENSION Qualifiers: Hypertension type: essential hypertension Qualified Code(s): I10 - Essential (primary) hypertension
[2017-11-19] MEDS ORDERED: ACETAMINOPHEN 325 MG TABLET (FP) PO PRN (19:04)
--- NOTE | 2017-11-19 19:09 | PN ---
Physical Exam: 24H Events: O/N: bloody BM and passing large bloody clots; Hgb 13.6 -> 7.5, pt transferred to ICU and PPI drip started. AM: GI and surgery consulted, transfused 2UPRBCs. SUBJECTIVE: Patient seen and examined in ICU. Denies fever, chills, nausea/ vomiting, abdominal pain. Denies weakness or lightheadedness. OBJECTIVE: Vital Signs Period Temp Pulse Resp BP Sys/Levin Pulse Ox Last 24 Hr 97.9 F-98.4 F 76-89 16-20 97-149/59-76 100-100 Intake & Output 11/16/17 11/17/17 11/18/17 11/19/17 23:59 23:59 23:59 23:59 Intake Total 42 1256 2362 2254 Output Total 2100 600 Balance -2057 656 2362 2254 Weight 53.07 kg GENERAL: lying comfortably in bed, nad, aaox3 HEENT: sclera anicteric, conjunctiva clear, MMM LUNGS: CTAB HEART: rrr, normal s1/s2, no m/r/g appreciated ABDOMEN: Soft, NTND, + bowel sounds RECTAL: dried blood around rectum LOWER EXTREMITIES: 2+ DP pulses, wwp, no edema NEUROLOGICAL: Left facial droop, decreased L facial sensation, tongue deviation to L, motor strength RLE/RUE - 4/5, LLE/LUE - 3/5, downgoing plantars SKIN: intact, no sacral ulcers CBC, BMP 11/19/17 17:45 11/19/17 08:45 Hepatic Panel Total Bilirubin 0.3 mg/dL (0.2-1.0) D 11/19/17 08:45 AST 11 U/L (15-37) L 11/19/17 08:45 ALT 14 U/L (12-78) 11/19/17 08:45 Alkaline Phosphatase 61 U/L (45-117) 11/19/17 08:45 Albumin 2.4 g/dl (3.4-5.0) L 11/19/17 08:45 INR, PTT INR 1.20 (0.82-1.09) H 11/19/17 08:45 Microbiology 11/16/17 02:00 Blood - Peripheral Venous Blood Culture - Preliminary NO GROWTH OBTAINED AFTER 72 HOURS, INCUBATION TO CONTINUE FOR 2 DAYS. 11/16/17 01:41 Blood - Peripheral Venous Blood Culture - Preliminary NO GROWTH OBTAINED AFTER 72 HOURS, INCUBATION TO CONTINUE FOR 2 DAYS. 11/17/17 17:00 Nasopharyngeal Swab Influenza Types A,B Antigen (MANAN) - Final 11/17/17 17:00 Nasopharyngeal Swab - Final 11/16/17 05:34 Urine - Urine Vaughan Urine Culture - Final NO GROWTH OBTAINED Active Medications Acetaminophen (Tylenol -) 650 mg PO Q6H PRN PRN Reason: FEVER Atorvastatin Calcium (Lipitor -) 40 mg PO HS LENNY Chlorhexidine Gluconate (Hibiclens For Decolonization -) 1 applic TP HS LENNY Dexamethasone (Decadron -) 4 mg PO QID LENNY Last Admin: 11/19/17 17:52 Dose: 4 mg Pantoprazole Sodium 80 mg/ (Sodium Chloride) 100 mls @ 10 mls/hr IVPB Q10H LENNY PRN Reason: 8 MG/HR Last Admin: 11/19/17 17:00 Dose: 10 mls/hr Ampicillin Sodium/Sulbactam (Sodium 1.5 gm/ Sodium Chloride) 100 mls @ 200 mls/ hr IVPB Q6H-IV LENNY Sodium Chloride (Normal Saline -) 1,000 mls @ 42 mls/hr IV ASDIR LENNY Levetiracetam (Keppra Injection -) 1,500 mg IVPB BID LENNY Mupirocin (Bactroban Ointment (For Decolonization) -) 1 applic NS BID LENNY Stop: 11/24/17 09:59 Last Admin: 11/19/17 09:38 Dose: 1 applic ASSESSMENT/PLAN: 72yo F with PMH of GBM s/p surgery in December 2016, s/p chemoRT, remote breast Ca , and diverticulitis who was brought to ED by daughter after increasing L sided weakness and slurred speech for past 2-3 days prior to admission. Now will significant GIB and decrease in Hgb. #GIB, upper vs lower, Hgb 12.2 s/p 2U PRBCs, pt hemodynamically stable -GI following, will perform EGD/C-scope if re-bleeds -Surgery consulted -Trend Hgb Q6H -Continue PPI drip #GBM s/p R resection December 2016, L hemiparesis and slurred speech improved today , appears to be at baseline *Surgical/Path Report in chart (WHO grade 4, IDH1 neg, MIB-1 high (50%)) *MRI 11/16 - no acute infarct, carotid dopplers wnl, ECHO: poor LV compliance, no RWA, EF wnl -Neurology consulted (Dr. Browne): -Phenytoin 200mg IV BID --> level 32.7 (corrected 38.9), Re-check level Tuesday, restart at 100mg BID -c/w Keppra 1500mg IV BID -switched steroids IV to Decadron 4mg PO QID -Neurosurgery consulted (Dr. Patino) - does not recommend further surgical intervention -Heme/Onc consulted -Palliative care consult -Lipitor 40mg PO -Neuro checks q2h, aspiration precautions, elevate HOB #fever (Tmax 102.5), now afebrile x 48H, BCx NGTD x 24H, CXR neg, UA neg, BCx NGTD x 72h -ID consulted -Unasyn IV Q6H, Day 3 -Tylenol 1 gm IV PRN #F/E/N: NS@42 / lytes wnl / NPO, small sips H2O for meds #PPX -DVT SCD's #Dispo: ICU Full code d/w Dr. Mateo Garcia MD PGY1 - Internal Medicine Visit type - Emergency Visit Emergency Visit: No - New Patient This patient is new to me today: No - Critical Care Critical Care patient: Yes Total Critical Care Time (in minutes): 40 Critical Care Statement: The care of this patient involved high complexity decision making to prevent further life threatening deterioration of the patient 's condition and/or to evaluate & treat vital organ system(s) failure or risk of failure. - Discharge Referral Physician Referral: Paul Rowell MD (Int Med)
[2017-11-19] MEDS: SODIUM CHLORIDE 1,000 ML IV SCH (19:15)
[2017-11-19] MEDS: ATORVASTATIN CA 40 MG TABLET (FP) PO SCH (21:24)
[2017-11-19] MEDS: CHLORHEXIDINE GLUCONATE 4% CLEANSER FOR DECOLONIZATION TP SCH (21:25)
[2017-11-19] MEDS ORDERED: ATORVASTATIN CA 40 MG TABLET (FP) PO SCH (22:00)
[2017-11-20] MEDS: PANTOPRAZOLE SODIUM 80 MG in SODIUM CHLORIDE 100 ML IVPB SCH ×3 (02:01→20:48)
[2017-11-20] MEDS: AMPICILLIN NA/SULBACTAM NA 1.5 GM in SODIUM CHLORIDE 100 ML IVPB SCH ×4 (02:02→20:48)
[2017-11-20 05:55] LABS: BASO % 0.4 % (0-2.0); HEMATOCRIT 31.5 % (32.4-45.2); HEMOGLOBIN 11.2 GM/dL (10.7-15.3); LYMPH % 25.4 % (8-40); MCH 31.6 pg (25.7-33.7); MCHC 35.5 g/dl (32.0-36.0); MEAN CELL VOLUME 88.9 fl (80-96); MEAN PLT VOLUME 6.9 fl (7.5-11.1); MONO % 10.3 % (3.8-10.2); NEUT % 63.9 % (42.8-82.8); PLATELET COUNT 127 K/MM3 (134-434); RBC 3.55 M/mm3 (3.60-5.2); RDW 14.3 % (11.6-15.6); WHITE BLOOD COUNT 4.8 K/mm3 (4.0-10.0)
[2017-11-20 06:32] LABS: ANION GAP 10 (8-16); BLOOD UREA NITROGEN 12 mg/dL (7-18); CALCIUM 8.1 mg/dL (8.5-10.1); CHLORIDE 107 mmol/L (98-107); CO2 28 mmol/L (21-32); CREATININE 0.4 mg/dL (0.55-1.02); GLUCOSE,RANDOM 82 mg/dL (74-106); MAGNESIUM 1.8 mg/dL (1.8-2.4); PHOSPHOROUS 3.1 mg/dL (2.5-4.9); POTASSIUM 3.5 mmol/L (3.5-5.1); SODIUM 145 mmol/L (136-145)
[2017-11-20] MEDS ORDERED: PT OWN MED DRAWER 7, Y5N ONE ×2 (08:15→20:38)
[2017-11-20] MEDS: levETIRAcetam 500 MG/5 ML INJECTION VIAL IVPB SCH ×2 (09:22→21:30)
[2017-11-20] MEDS: DEXAMETHASONE 4 MG TABLET (FP) PO SCH ×4 (09:22→21:31)
[2017-11-20] MEDS: MUPIROCIN 2% TOPICAL OINTMENT FOR DECOLONIZATION NS SCH ×2 (09:35→21:31)
--- NOTE | 2017-11-20 09:45 | PN ---
Progress Note (short form) - Note Progress Note: NEUROSURGERY Transferred to ICU GI opinion and family decision noted Did not sleep well PE: AF, VSS Not in acute distress; following commands HEENT- NC/AT; Neck- supple; Cor- RR; Lungs- CTA B; Abd- benign; Ext- no sign of DVT CN- intact except minimal L facial assymmetry and L tongue deviation; Motor- dense L hemiparesis 3/5 L hand , 1/5 prox L UE, l LE 3/5; Sensation- grossly intact; DTR-1+ Brain MRI- R lateral frontal> parietal 4 x4 x4.5 cm multilobulated rim enhancing lesion with associated vasogenic edema and gliosis, mild mass effect, some ventricular wall enhancement; no HCP WBC 4.8; Hgb 11.2 Blood culture negative Extensive recurrent/persistent R lateral frontal GBM Cont keppra Changed to PO decadron and taper to 4 mg bid On Unasyn per ID GI f/u
--- NOTE | 2017-11-20 10:02 | PN ---
Progress Note (short form) - Note Progress Note: Patient seen and examined in the ICU. Awake and responsive. Says she feels OK. No CP or SOB. No abdominal symptoms. No occult bleeding noted overnight. Intake & Output 11/17/17 11/18/17 11/19/17 11/20/17 23:59 23:59 23:59 23:59 Intake Total 1256 2362 2814 414 Output Total 600 500 Balance 656 2362 2314 414 Weight 116 lb Last Vital Signs Temp Pulse Resp BP Pulse Ox 98.4 F 79 17 121/59 97 11/20/17 06:00 11/20/17 08:00 11/20/17 08:41 11/20/17 08:00 11/20/17 08:41 Active Medications Acetaminophen (Tylenol -) 650 mg PO Q6H PRN PRN Reason: FEVER Atorvastatin Calcium (Lipitor -) 40 mg PO HS [facility] Last Admin: 11/19/17 21:24 Dose: 40 mg Chlorhexidine Gluconate (Hibiclens For Decolonization -) 1 applic TP HS [facility] Last Admin: 11/19/17 21:25 Dose: 1 applic Dexamethasone (Decadron -) 4 mg PO QID [facility] Last Admin: 11/20/17 09:22 Dose: 4 mg Pantoprazole Sodium 80 mg/ (Sodium Chloride) 100 mls @ 10 mls/hr IVPB Q10H LENNY PRN Reason: 8 MG/HR Last Admin: 11/20/17 02:01 Dose: 10 mls/hr Ampicillin Sodium/Sulbactam (Sodium 1.5 gm/ Sodium Chloride) 100 mls @ 200 mls/ hr IVPB Q6H-IV [facility] Last Admin: 11/20/17 09:22 Dose: 200 mls/hr Sodium Chloride (Normal Saline -) 1,000 mls @ 42 mls/hr IV ASDIR [facility] Last Admin: 11/19/17 19:15 Dose: 42 mls/hr Levetiracetam (Keppra Injection -) 1,500 mg IVPB BID [facility] Last Admin: 11/20/17 09:22 Dose: 1,500 mg Mupirocin (Bactroban Ointment (For Decolonization) -) 1 applic NS BID [facility] Stop: 11/24/17 09:59 Last Admin: 11/20/17 09:35 Dose: 1 applic Constitutional: Yes: No Distress, Thin Eyes: Yes: Conjunctiva Clear, EOM Intact. No: Sclera Icterus HENT: No: Epistaxis Neck: Yes: Supple, Thyromegaly Cardiovascular: Yes: Regular Rate and Rhythm Respiratory: Yes: CTA Bilaterally. No: Accessory Muscle Use Gastrointestinal: Yes: Normal Bowel Sounds, Soft, Rectal Bleeding. No: Ascites , Pulsatile Mass, Tenderness, Tenderness, Epigastrium, Tenderness, Rebound, Vomiting Renal/: Yes: WNL Musculoskeletal: Yes: WNL Extremities: Yes: WNL Edema: No Peripheral Pulses WNL: Yes Integumentary: Yes: WNL Neurological: Yes: Alert ...Motor Strength: WNL Psychiatric: Yes: Alert Labs: Laboratory Results - last 24 hr 11/19/17 11/19/17 11/19/17 03:00 11:44 17:45 WBC 5.4 5.7 RBC 4.22 3.92 Hgb 13.1 D 12.2 Hct 38.1 D 35.0 MCV 90.3 89.3 MCH 31.0 31.1 MCHC 34.3 34.8 RDW 13.7 14.1 Plt Count 119 L 121 L MPV 6.7 L 6.7 L Neutrophils % Lymphocytes % Monocytes % Eosinophils % Basophils % Sodium Potassium Chloride Carbon Dioxide Anion Gap BUN Creatinine Random Glucose Calcium Phosphorus Magnesium Blood Type O POSITIVE Antibody Screen Negative Crossmatch See Detail 11/20/17 11/20/17 05:37 05:37 WBC 4.8 RBC 3.55 L Hgb 11.2 Hct 31.5 L MCV 88.9 MCH 31.6 MCHC 35.5 RDW 14.3 Plt Count 127 L MPV 6.9 L Neutrophils % 63.9 Lymphocytes % 25.4 D Monocytes % 10.3 H Eosinophils % 0.0 Basophils % 0.4 Sodium 145 Potassium 3.5 Chloride 107 Carbon Dioxide 28 Anion Gap 10 BUN 12 Creatinine 0.4 L Random Glucose 82 Calcium 8.1 L Phosphorus 3.1 Magnesium 1.8 Blood Type Antibody Screen Crossmatch Assessment/Plan Brain malignant neoplasm Breast mass in female Cerebrovascular accident (Acute) Left hemiparesis (Acute) Acute GI Bleed Normal transfusion thresholds SCDs PPI drip Decolonization Decadron ABX per ID ICU monitoring Dr Alba Critical care time spent in reviewing chart, evaluating patient and formulating plan - 36 minutes.
--- NOTE | 2017-11-20 14:17 | PN ---
GI Progress Note Subjective: For Dr. Harding: No acute events No overt bleeding Hgb 11.1 this morning - Objective Vital Signs: Vital Signs Temperature 98.4 F 11/20/17 14:00 Pulse Rate 75 11/20/17 14:00 Respiratory Rate 17 11/20/17 14:00 Blood Pressure 119/63 11/20/17 14:00 O2 Sat by Pulse Oximetry (%) 97 11/20/17 08:41 Constitutional: Calm Eyes: No: Sclera Icterus Cardiovascular: Yes: Regular Rate and Rhythm Respiratory: Yes: CTA Bilaterally Gastrointestinal Inspection: No: Distention ...Auscultate: Yes: Normoactive Bowel Sounds ...Palpate: No: Tenderness Edema: No (No LE edema) Labs: CBC, BMP 11/20/17 05:37 11/20/17 05:37 INR, PTT INR 1.20 (0.82-1.09) H 11/19/17 08:45 Problem List - Problems (1) GI bleed Assessment/Plan: 2 U PRBC transfused at this point and patient hemodynamically stable. Suspect LGIB source No overt bleeding since yesterday morning continuing PPI drip and NPO for now. OK for meds. Discussed possibility of EGD / Colonoscopy tomorrow with Ms. Kuhn this afternoon. She is opting to continue to monitor for now. I left a message on her daughter's cell phone to discuss things further. Code(s): K92.2 - GASTROINTESTINAL HEMORRHAGE, UNSPECIFIED
--- NOTE | 2017-11-20 16:40 | PN ---
Progress Note (short form) - Note Progress Note: Seen in follow up. Still in ICU - no further reports of bloody stool movements. Hb has remAIned stable Meds reviewed. Current Medications Generic Name Dose Route Start Last Admin Trade Name Hood PRN Reason Stop Dose Admin Acetaminophen 650 mg 11/19/17 19:04 Tylenol - PO Q6H PRN FEVER Atorvastatin Calcium 40 mg 11/19/17 22:00 11/19/17 21:24 Lipitor - PO 40 mg HS LENNY Administration Chlorhexidine Gluconate 1 applic 11/19/17 22:00 11/19/17 21:25 Hibiclens For Decolonization - TP 1 applic HS [facility] Administration Dexamethasone 4 mg 11/19/17 10:00 11/20/17 13:21 Decadron - PO 4 mg QID [facility] Administration Pantoprazole Sodium 80 mg/ 100 mls @ 10 mls/hr 11/19/17 05:15 11/20/17 13:21 Sodium Chloride IVPB 10 mls/hr Q10H [facility] Administration 8 MG/HR Ampicillin Sodium/Sulbactam 100 mls @ 200 mls/hr 11/19/17 21:00 11/20/17 14: 04 Sodium 1.5 gm/ Sodium Chloride IVPB 200 mls/hr Q6H-IV [facility] Administration Sodium Chloride 1,000 mls @ 42 mls/hr 11/19/17 19:04 11/19/17 19:15 Normal Saline - IV 42 mls/hr ASDIR [facility] Administration Levetiracetam 1,500 mg 11/19/17 22:00 11/20/17 09:22 Keppra Injection - IVPB 1,500 mg BID [facility] Administration Mupirocin 1 applic 11/19/17 10:00 11/20/17 09:35 Bactroban Ointment (For Decolonization) - NS 11/24/17 09:59 1 applic BID [facility] Administration On exam: Last Vital Signs Temp Pulse Resp BP Pulse Ox 98.4 F 75 17 119/63 97 11/20/17 14:00 11/20/17 14:00 11/20/17 14:00 11/20/17 14:00 11/20/17 08:41 General: Supine in bed, comfortable, cachexic. Extremities: No pallor, no icterus. Chest: breathing comfortably, clear to auscultation CVS: S1, S2, no gallop or murmur. Abdomen: Soft, non-tender. Neuro: Drowsy but rousable, non-focal. Skin: intact, no rash CBC, BMP 11/20/17 05:37 11/20/17 05:37 Assessment. Known GBM, admitted for changed mental status (?subsequently improved), now with significant GI bleed. Gastroenterology following - appears to be stable - endoscopy not planned at this time. Most recent Hb 13.1 following 2 units. Suspect that prior Hb of 7.5 was artefactual - (likely diluted - also low platelets on that CBC). Unclear benefit steroids at this time. High index of suspicion for upper GI hemorrhage, not unexpected with likely recent history of significant steroids exposure. Continue IV PPI. No specific oncology recommendations at this time. Patient [place] [facility] [place]
--- NOTE | 2017-11-20 17:05 | PN ---
Teaching Attending Note Name of Resident: Roldan Galindo SUBJECTIVE: patient seen and examined, no nausea, vomiting, abdominal pain, headache or new weakness, Asking if can eat and sit in the chair. OBJECTIVE: Vital Signs Period Temp Pulse Resp BP Sys/Levin Pulse Ox Last 24 Hr 98.3 F-98.7 F 68-90 15-22 108-130/51-77 97-98 Intake & Output 11/17/17 11/18/17 11/19/17 11/20/17 23:59 23:59 23:59 23:59 Intake Total 1256 2362 2814 774 Output Total 600 500 Balance 656 2362 2314 774 Weight 116 lb general: lying in bed in no acute distress CVS;S1s2 regular Chest: no rales or wheezing abdomen: soft, nT, ND, positive bowel sounds extremities: no edema Neuro dysarthria, left hemiparesis unchanged Home Medication List Medication Instructions Recorded Confirmed Type Sennosides/Docusate Sodium 1 each PO PRN PRN 11/16/17 11/16/17 History [Senexon-S Tablet] levETIRAcetam [Keppra -] 1,500 mg PO BID 11/16/17 11/16/17 History Active Medications Generic Name Dose Route Start Last Admin Trade Name Freq PRN Reason Stop Dose Admin Acetaminophen 650 mg 11/19/17 19:04 Tylenol - PO Q6H PRN FEVER Atorvastatin Calcium 40 mg 11/19/17 22:00 11/19/17 21:24 Lipitor - PO 40 mg HS [facility] Administration Chlorhexidine Gluconate 1 applic 11/19/17 22:00 11/19/17 21:25 Hibiclens For Decolonization - TP 1 applic HS [facility] Administration Dexamethasone 4 mg 11/19/17 10:00 11/20/17 13:21 Decadron - PO 4 mg QID [facility] Administration Pantoprazole Sodium 80 mg/ 100 mls @ 10 mls/hr 11/19/17 05:15 11/20/17 13:21 Sodium Chloride IVPB 10 mls/hr Q10H [facility] Administration 8 MG/HR Ampicillin Sodium/Sulbactam 100 mls @ 200 mls/hr 11/19/17 21:00 11/20/17 14: 04 Sodium 1.5 gm/ Sodium Chloride IVPB 200 mls/hr Q6H-IV [facility] Administration Sodium Chloride 1,000 mls @ 42 mls/hr 11/19/17 19:04 11/19/17 19:15 Normal Saline - IV 42 mls/hr ASDIR [facility] Administration Levetiracetam 1,500 mg 11/19/17 22:00 11/20/17 09:22 Keppra Injection - IVPB 1,500 mg BID [facility] Administration Mupirocin 1 applic 11/19/17 10:00 11/20/17 09:35 Bactroban Ointment (For Decolonization) - NS 11/24/17 09:59 1 applic BID [facility] Administration Laboratory Results - last 24 hr 11/19/17 11/20/17 11/20/17 17:45 05:37 05:37 WBC 5.7 4.8 RBC 3.92 3.55 L Hgb 12.2 11.2 Hct 35.0 31.5 L MCV 89.3 88.9 MCH 31.1 31.6 MCHC 34.8 35.5 RDW 14.1 14.3 Plt Count 121 L 127 L MPV 6.7 L 6.9 L Neutrophils % 63.9 Lymphocytes % 25.4 D Monocytes % 10.3 H Eosinophils % 0.0 Basophils % 0.4 Sodium 145 Potassium 3.5 Chloride 107 Carbon Dioxide 28 Anion Gap 10 BUN 12 Creatinine 0.4 L Random Glucose 82 Calcium 8.1 L Phosphorus 3.1 Magnesium 1.8 Microbiology 11/16/17 02:00 Blood - Peripheral Venous Blood Culture - Preliminary NO GROWTH OBTAINED AFTER 96 HOURS, INCUBATION TO CONTINUE FOR 1 DAYS. 11/16/17 01:41 Blood - Peripheral Venous Blood Culture - Preliminary NO GROWTH OBTAINED AFTER 96 HOURS, INCUBATION TO CONTINUE FOR 1 DAYS. 11/17/17 17:00 Nasopharyngeal Swab Influenza Types A,B Antigen (MANAN) - Final 11/17/17 17:00 Nasopharyngeal Swab - Final 11/16/17 05:34 Urine - Urine Vaughan Urine Culture - Final NO GROWTH OBTAINED ASSESSMENT AND PLAN: 72 yom with PMHx of GBM s/p surgery/Chemoradiation, Stage I Breast Ca in 2011 ( refused hormonal therapy), HLD admitted with slurred speech/left hemiparesis, found with recurrent GBM now with acute GI haemorrhage and acute blood loss anemia -Acute GI haemorrhage, presentation and history suggestive of diverticular bleed , cannot r/o Upper GI etiology though low suspicion given hemodynamic stability and mentation -Acute blood loss anemia -Recurrent GBM with dysarthria/Left hemiparesis -Fevers, ?Aspiration, CT chest neg for concerns. -Breast Ca, CT A/P neg for mets -HLD Plan: s/p 2 units PRBC, hb stable. GI input appreciated. NPO and protonix drip. Possible EGD/colonoscopy in 24-48 hours based on clincal course H/h in AM unless new bleed concerns today. Neurology/neurosurgery/oncology/ID input appreciated. Decadron 4 mg QID till outpatient follow up. Speech/swallow input noted, soft diet with thin liquids and aspiration precautions. NPo for now given above Trasntion to augmentin given no concerns on CT chest, for a short course. Dilantin held, repeat levels on Tuesday, resume accordingly. dispo on hold given GI bleed has [facility] [place]. Plan for SNF once improved. Total critical care time spent 35 min.
[2017-11-20] MEDS: SODIUM CHLORIDE 1,000 ML IV SCH ×2 (17:49→20:00)
[2017-11-20] MEDS: CHLORHEXIDINE GLUCONATE 4% CLEANSER FOR DECOLONIZATION TP SCH (21:31)
[2017-11-20] MEDS: ATORVASTATIN CA 40 MG TABLET (FP) PO SCH (21:31)
[2017-11-21] MEDS: AMPICILLIN NA/SULBACTAM NA 1.5 GM in SODIUM CHLORIDE 100 ML IVPB SCH ×2 (03:25→09:04)
[2017-11-21 06:14] LABS: HEMATOCRIT 30.2 % (32.4-45.2); HEMOGLOBIN 10.7 GM/dL (10.7-15.3); MCH 31.6 pg (25.7-33.7); MCHC 35.6 g/dl (32.0-36.0); MEAN PLT VOLUME 6.9 fl (7.5-11.1); PLATELET COUNT 134 K/MM3 (134-434); RBC 3.39 M/mm3 (3.60-5.2); RDW 13.9 % (11.6-15.6); WHITE BLOOD COUNT 4.6 K/mm3 (4.0-10.0)
--- NOTE | 2017-11-21 08:08 | PN ---
Progress Note (short form) - Note Progress Note: NEUROSURGERY In ICU No new complaint PE: Tmax 98.4, AF, VSS Not in acute distress; comfortable; following commands HEENT- NC/AT; Neck- supple; Cor- RR; Lungs- CTA B; Abd- benign; Ext- no sign of DVT CN- intact except minimal L facial assymmetry and L tongue deviation; Motor- dense L hemiparesis 3/5 L hand , 1/5 prox L UE, l LE 3/5; Sensation- grossly intact; DTR-1+ Brain MRI- R lateral frontal> parietal 4 x4 x4.5 cm multilobulated rim enhancing lesion with associated vasogenic edema and gliosis, mild mass effect, some ventricular wall enhancement; no HCP WBC 4.6; Hgb 10.7 Extensive recurrent/persistent R lateral frontal GBM Cont keppra On PO decadron QID and taper to 4 mg bid On Unasyn per ID GI f/u
[2017-11-21] MEDS ORDERED: PT OWN MED DRAWER 7, Y5N ONE ×2 (08:17→09:10)
--- NOTE | 2017-11-21 08:38 | PN ---
Physical Exam: SUBJECTIVE: Patient seen and examined. No events overnight. No further bloody bowel movements. Pt offers no complaints, denies fever, chills, abdominal pain, chest pain, and sob. OBJECTIVE: Vital Signs Period Temp Pulse Resp BP Sys/Levin Pulse Ox Last 24 Hr 97.8 F-98.4 F 68-90 15-18 110-154/57-79 97-97 Intake & Output 11/18/17 11/19/17 11/20/17 11/21/17 23:59 23:59 23:59 23:59 Intake Total 2362 2814 1398 1502 Output Total 500 300 Balance 2362 2314 1098 1502 Weight 52.617 kg 52.8 kg GENERAL: aaox3, pleasant, cooperative, nad HEENT: sclera anicteric, conjunctiva clear, MMM LUNGS: CTAB HEART: rrr, normal s1/s2, no m/r/g ABDOMEN: Soft, NTND, no guarding or rebound tenderness, positive bowel sounds LOWER EXTREMITIES: 2+ DP pulses, wwp, no edema NEUROLOGICAL: dysarthria, L facial droop, L tongue deviation, L hand 3/5, L proximal UE 2/5, RUE/RLE 5/5, sensation grossly intact PSYCH: Normal mood, normal affect, No concerns of substance abuse, No hallucinations or delusions, No suicidal or homicidal ideation CBC, BMP 11/21/17 19:15 11/20/17 05:37 Hepatic Panel Total Bilirubin 0.3 mg/dL (0.2-1.0) D 11/19/17 08:45 AST 11 U/L (15-37) L 11/19/17 08:45 ALT 14 U/L (12-78) 11/19/17 08:45 Alkaline Phosphatase 61 U/L (45-117) 11/19/17 08:45 Albumin 2.4 g/dl (3.4-5.0) L 11/19/17 08:45 Phenytoin - 12.4 Microbiology 11/16/17 02:00 Blood - Peripheral Venous Blood Culture - Final NO GROWTH AFTER 5 DAYS INCUBATION 11/16/17 01:41 Blood - Peripheral Venous Blood Culture - Final NO GROWTH AFTER 5 DAYS INCUBATION 11/17/17 17:00 Nasopharyngeal Swab Influenza Types A,B Antigen (MANAN) - Final 11/17/17 17:00 Nasopharyngeal Swab - Final 11/16/17 05:34 Urine - Urine Vaughan Urine Culture - Final NO GROWTH OBTAINED Active Medications Acetaminophen (Tylenol -) 650 mg PO Q6H PRN PRN Reason: FEVER Atorvastatin Calcium (Lipitor -) 40 mg PO HS [facility] Last Admin: 11/20/17 21:31 Dose: 40 mg Chlorhexidine Gluconate (Hibiclens For Decolonization -) 1 applic TP HS [facility] Last Admin: 11/20/17 21:31 Dose: 1 applic Dexamethasone (Decadron -) 4 mg PO TID [facility] Pantoprazole Sodium 80 mg/ (Sodium Chloride) 100 mls @ 10 mls/hr IVPB Q10H [facility]ENNY PRN Reason: 8 MG/HR Last Admin: 11/20/17 20:48 Dose: 10 mls/hr Ampicillin Sodium/Sulbactam (Sodium 1.5 gm/ Sodium Chloride) 100 mls @ 200 mls/ hr IVPB Q6H-IV [facility] Last Admin: 11/21/17 03:25 Dose: 200 mls/hr Sodium Chloride (Normal Saline -) 1,000 mls @ 42 mls/hr IV ASDIR [facility] Last Admin: 11/20/17 20:00 Dose: 42 mls/hr Levetiracetam (Keppra Injection -) 1,500 mg IVPB BID [facility] Last Admin: 11/20/17 21:30 Dose: 1,500 mg Mupirocin (Bactroban Ointment (For Decolonization) -) 1 applic NS BID [facility] Stop: 11/24/17 09:59 Last Admin: 11/20/17 21:31 Dose: 1 applic ASSESSMENT/PLAN: 72yo F with PMH of GBM s/p surgery in December 2016, s/p chemoRT, remote breast Ca , and diverticulitis who was brought to ED by daughter after increasing L sided weakness and slurred speech for past 2-3 days prior to admission. Now will significant GIB and decrease in Hgb. #GIB, likely diverticular bleed 2/2 constipation, H&H s/p 2U PRBCs, pt hemodynamically stable, no further bloody stools -GI following, will observe for now -PPI drip --> Protonix 40mg PO daily -Miralax BID -Diet advanced to Regular soft #GBM s/p R resection December 2016, L hemiparesis and slurred speech improved today , appears to be at baseline *Surgical/Path Report in chart (WHO grade 4, IDH1 neg, MIB-1 high (50%)) *MRI 11/16 - no acute infarct, carotid dopplers wnl, ECHO: poor LV compliance, no RWA, EF wnl -Neurology consulted (Dr. Browne): -Phenytoin level wnl (12.4) -> resumed today at 100mg PO BID -c/w Keppra 1500mg IV BID -Decreased Decadron 4mg PO QID to TID -Neurosurgery consulted (Dr. Patino) - does not recommend further surgical intervention -Heme/Onc consulted -Palliative care consult -Lipitor 40mg PO -Neuro checks q2h, aspiration precautions, elevate HOB #fever (Tmax 102.5), now afebrile x 48H, BCx NGTD x 24H, CXR neg, UA neg, BCx NGTD x 72h -ID consulted, received Unasyn IV Q6H for 5 days; d/c and monitor off abx -Tylenol 1 gm IV PRN #F/E/N: NS@42cc / lytes wnl / NPO, small sips H2O for meds #PPX -DVT SCD's #Dispo: transfer to [facility], d/c tomorrow to [place]; plan discussed with daughter Naren Full code d/w Dr. Mateo Garcia MD PGY1 - Internal Medicine Visit type - Emergency Visit Emergency Visit: No - New Patient This patient is new to me today: No - Critical Care Critical Care patient: Yes Total Critical Care Time (in minutes): 40 Critical Care Statement: The care of this patient involved high complexity decision making to prevent further life threatening deterioration of the patient 's condition and/or to evaluate & treat vital organ system(s) failure or risk of failure.
[2017-11-21] MEDS: PANTOPRAZOLE SODIUM 80 MG in SODIUM CHLORIDE 100 ML IVPB SCH (09:04)
[2017-11-21] MEDS: levETIRAcetam 500 MG/5 ML INJECTION VIAL IVPB SCH ×2 (09:04→22:18)
[2017-11-21] MEDS: MUPIROCIN 2% TOPICAL OINTMENT FOR DECOLONIZATION NS SCH ×2 (09:05→22:22)
--- NOTE | 2017-11-21 11:26 | PN ---
Progress Note, Physician History of Present Illness: Chat reviewed. No events overnight Comfortable, AA - Current Medication List Current Medications: Active Medications Acetaminophen (Tylenol -) 650 mg PO Q6H PRN PRN Reason: FEVER Atorvastatin Calcium (Lipitor -) 40 mg PO HS [facility] Last Admin: 11/20/17 21:31 Dose: 40 mg Chlorhexidine Gluconate (Hibiclens For Decolonization -) 1 applic TP HS [facility] Last Admin: 11/20/17 21:31 Dose: 1 applic Dexamethasone (Decadron -) 4 mg PO TID [facility] Pantoprazole Sodium 80 mg/ (Sodium Chloride) 100 mls @ 10 mls/hr IVPB Q10H [facility]ENNY PRN Reason: 8 MG/HR Last Admin: 11/21/17 09:04 Dose: 10 mls/hr Ampicillin Sodium/Sulbactam (Sodium 1.5 gm/ Sodium Chloride) 100 mls @ 200 mls/ hr IVPB Q6H-IV [facility] Last Admin: 11/21/17 09:04 Dose: 200 mls/hr Sodium Chloride (Normal Saline -) 1,000 mls @ 42 mls/hr IV ASDIR [facility] Last Admin: 11/20/17 20:00 Dose: 42 mls/hr Levetiracetam (Keppra Injection -) 1,500 mg IVPB BID [facility] Last Admin: 11/21/17 09:04 Dose: 1,500 mg Mupirocin (Bactroban Ointment (For Decolonization) -) 1 applic NS BID [facility] Stop: 11/24/17 09:59 Last Admin: 11/21/17 09:05 Dose: 1 applic - Objective Vital Signs: Vital Signs Temperature 98.6 F 11/21/17 10:00 Pulse Rate 99 H 11/21/17 10:00 Respiratory Rate 14 11/21/17 10:00 Blood Pressure 137/65 11/21/17 10:00 O2 Sat by Pulse Oximetry (%) 97 11/20/17 21:00 Constitutional: Yes: No Distress, Calm Eyes: Yes: Conjunctiva Clear HENT: Yes: Atraumatic Gastrointestinal: Yes: Soft. No: Hematemesis, Melena, Rectal Bleeding, Tenderness Neurological: Yes: Alert Labs: CBC, BMP 11/21/17 05:45 11/20/17 05:37 INR, PTT INR 1.20 (0.82-1.09) H 11/19/17 08:45 CBCD WBC 4.6 K/mm3 (4.0-10.0) 11/21/17 05:45 RBC 3.39 M/mm3 (3.60-5.2) L 11/21/17 05:45 Hgb 10.7 GM/dL (10.7-15.3) 11/21/17 05:45 Hct 30.2 % (32.4-45.2) L 11/21/17 05:45 MCV 89.0 fl (80-96) 11/21/17 05:45 MCHC 35.6 g/dl (32.0-36.0) 11/21/17 05:45 RDW 13.9 % (11.6-15.6) 11/21/17 05:45 Plt Count 134 K/MM3 (134-434) 11/21/17 05:45 MPV 6.9 fl (7.5-11.1) L 11/21/17 05:45 CMP Sodium 145 mmol/L (136-145) 11/20/17 05:37 Potassium 3.5 mmol/L (3.5-5.1) 11/20/17 05:37 Chloride 107 mmol/L (98-107) 11/20/17 05:37 Carbon Dioxide 28 mmol/L (21-32) 11/20/17 05:37 Anion Gap 10 (8-16) 11/20/17 05:37 BUN 12 mg/dL (7-18) 11/20/17 05:37 Creatinine 0.4 mg/dL (0.55-1.02) L 11/20/17 05:37 Creat Clearance w eGFR > 60 (>60) 11/19/17 08:45 Calcium 8.1 mg/dL (8.5-10.1) L 11/20/17 05:37 Total Bilirubin 0.3 mg/dL (0.2-1.0) D 11/19/17 08:45 AST 11 U/L (15-37) L 11/19/17 08:45 ALT 14 U/L (12-78) 11/19/17 08:45 Alkaline Phosphatase 61 U/L (45-117) 11/19/17 08:45 Total Protein 4.8 g/dl (6.4-8.2) L 11/19/17 08:45 Albumin 2.4 g/dl (3.4-5.0) L 11/19/17 08:45 Problem List - Problems (1) Diverticulosis large intestine w/o perforation or abscess w/bleeding Code(s): K57.31 - DVRTCLOS OF LG INT W/O PERFORATION OR ABSCESS W BLEEDING (2) GI bleed Code(s): K92.2 - GASTROINTESTINAL HEMORRHAGE, UNSPECIFIED Assessment/Plan Diverticular bleeding in settings of constipation. No stigmata of ongoing bleeding. Resume diet Observe Discussed with the patient
--- NOTE | 2017-11-21 12:33 | PN ---
Teaching Attending Note Name of Resident: Felisha Cuenca ATTENDING PHYSICIAN STATEMENT I saw and evaluated the patient. I reviewed the resident's note and discussed the case with the resident. I agree with the resident's findings and plan as documented. SUBJECTIVE: Patient seen and examined in the ICU. Awake and responsive. Says she feels OK. No CP or SOB. No abdominal symptoms. No occult bleeding noted overnight. Intake & Output 11/18/17 11/19/17 11/20/17 11/21/17 23:59 23:59 23:59 23:59 Intake Total 2362 2814 1398 640 Output Total 500 300 Balance 2362 2314 1098 640 Weight 116 lb 116 lb 6.465 oz Last Vital Signs Temp Pulse Resp BP Pulse Ox 98.6 F 99 H 14 137/65 97 11/21/17 10:00 11/21/17 10:00 11/21/17 10:00 11/21/17 10:00 11/21/17 09:00 Active Medications Acetaminophen (Tylenol -) 650 mg PO Q6H PRN PRN Reason: FEVER Atorvastatin Calcium (Lipitor -) 40 mg PO HS [facility] Last Admin: 11/20/17 21:31 Dose: 40 mg Chlorhexidine Gluconate (Hibiclens For Decolonization -) 1 applic TP HS [facility] Last Admin: 11/20/17 21:31 Dose: 1 applic Dexamethasone (Decadron -) 4 mg PO TID [facility] Pantoprazole Sodium 80 mg/ (Sodium Chloride) 100 mls @ 10 mls/hr IVPB Q10H [facility] PRN Reason: 8 MG/HR Last Admin: 11/21/17 09:04 Dose: 10 mls/hr Ampicillin Sodium/Sulbactam (Sodium 1.5 gm/ Sodium Chloride) 100 mls @ 200 mls/ hr IVPB Q6H-IV [facility] Last Admin: 11/21/17 09:04 Dose: 200 mls/hr Sodium Chloride (Normal Saline -) 1,000 mls @ 42 mls/hr IV ASDIR [facility] Last Admin: 11/20/17 20:00 Dose: 42 mls/hr Levetiracetam (Keppra Injection -) 1,500 mg IVPB BID [facility] Last Admin: 11/21/17 09:04 Dose: 1,500 mg Mupirocin (Bactroban Ointment (For Decolonization) -) 1 applic NS BID [facility] Stop: 11/24/17 09:59 Last Admin: 11/21/17 09:05 Dose: 1 applic Polyethylene Glycol (Miralax (For Daily Use) -) 17 gm PO BID [facility] Constitutional: Yes: No Distress, Thin Eyes: Yes: Conjunctiva Clear, EOM Intact. No: Sclera Icterus HENT: No: Epistaxis Neck: Yes: Supple, Thyromegaly Cardiovascular: Yes: Regular Rate and Rhythm Respiratory: Yes: CTA Bilaterally. No: Accessory Muscle Use Gastrointestinal: Yes: Normal Bowel Sounds, Soft, Rectal Bleeding. No: Ascites , Pulsatile Mass, Tenderness, Tenderness, Epigastrium, Tenderness, Rebound, Vomiting Renal/: Yes: WNL Musculoskeletal: Yes: WNL Extremities: Yes: WNL Edema: No Peripheral Pulses WNL: Yes Integumentary: Yes: WNL Neurological: Yes: Alert ...Motor Strength: WNL Psychiatric: Yes: Alert Labs: Laboratory Results - last 24 hr 11/21/17 11/21/17 05:45 05:45 WBC 4.6 RBC 3.39 L Hgb 10.7 Hct 30.2 L MCV 89.0 MCH 31.6 MCHC 35.6 RDW 13.9 Plt Count 134 MPV 6.9 L Phenytoin 12.4 D Assessment/Plan Brain malignant neoplasm Breast mass in female Cerebrovascular accident (Acute) Left hemiparesis (Acute) Acute GI Bleed Normal transfusion thresholds SCDs PPI drip Decolonization Decadron ABX per ID Floor Dr Alba Critical care time spent in reviewing chart, evaluating patient and formulating plan - 36 minutes.
[2017-11-21] MEDS: POLYETHYLENE GLYCOL 3350 119 GM BTL PO SCH ×2 (12:38→22:22)
--- NOTE | 2017-11-21 14:28 | PN ---
Teaching Attending Note Name of Resident: Alberta Garcia ATTENDING PHYSICIAN STATEMENT I saw and evaluated the patient. I reviewed the resident's note and discussed the case with the resident. I agree with the resident's findings and plan as documented with exceptions below. SUBJECTIVE: Patient seen and examined. no nausea, vomiting, abdominal pain, dizziness or new weakness. NO new headaches, wants to eat. OBJECTIVE: Vital Signs Period Temp Pulse Resp BP Sys/Levin Pulse Ox Last 24 Hr 97.8 F-98.6 F 70-99 14-18 110-154/57-91 97-97 Intake & Output 11/18/17 11/19/17 11/20/17 11/21/17 23:59 23:59 23:59 23:59 Intake Total 2362 2814 1398 640 Output Total 500 300 Balance 2362 2314 1098 640 Weight 116 lb 116 lb 6.465 oz General: sitting in bed in no acute distress CVS:S1S2 regular Chest: No rales or wheezing abdomen: soft, NT, ND, positive bowel sounds Neuro: dysarthria, left sided weakness unchanged Home Medication List Medication Instructions Recorded Confirmed Type Sennosides/Docusate Sodium 1 each PO PRN PRN 11/16/17 11/16/17 History [Senexon-S Tablet] levETIRAcetam [Keppra -] 1,500 mg PO BID 11/16/17 11/16/17 History Active Medications Generic Name Dose Route Start Last Admin Trade Name Freq PRN Reason Stop Dose Admin Acetaminophen 650 mg 11/19/17 19:04 Tylenol - PO Q6H PRN FEVER Atorvastatin Calcium 40 mg 11/19/17 22:00 11/20/17 21:31 Lipitor - PO 40 mg HS LENNY Administration Chlorhexidine Gluconate 1 applic 11/19/17 22:00 11/20/17 21:31 Hibiclens For Decolonization - TP 1 applic HS LENNY Administration Dexamethasone 4 mg 11/21/17 14:00 Decadron - PO TID LENNY Pantoprazole Sodium 80 mg/ 100 mls @ 10 mls/hr 11/19/17 05:15 11/21/17 09:04 Sodium Chloride IVPB 10 mls/hr Q10H LENNY Administration 8 MG/HR Ampicillin Sodium/Sulbactam 100 mls @ 200 mls/hr 11/19/17 21:00 11/21/17 09: 04 Sodium 1.5 gm/ Sodium Chloride IVPB 200 mls/hr Q6H-IV LENNY Administration Sodium Chloride 1,000 mls @ 42 mls/hr 11/19/17 19:04 11/20/17 20:00 Normal Saline - IV 42 mls/hr ASDIR LENNY Administration Levetiracetam 1,500 mg 11/19/17 22:00 11/21/17 09:04 Keppra Injection - IVPB 1,500 mg BID LENNY Administration Mupirocin 1 applic 11/19/17 10:00 11/21/17 09:05 Bactroban Ointment (For Decolonization) - NS 11/24/17 09:59 1 applic BID LENNY Administration Phenytoin Sodium 100 mg 11/21/17 13:00 Dilantin - PO BID LENNY Polyethylene Glycol 17 gm 11/21/17 12:30 11/21/17 12:38 Miralax (For Daily Use) - PO 17 gm BID LENNY Administration Laboratory Results - last 24 hr 11/21/17 11/21/17 05:45 05:45 WBC 4.6 RBC 3.39 L Hgb 10.7 Hct 30.2 L MCV 89.0 MCH 31.6 MCHC 35.6 RDW 13.9 Plt Count 134 MPV 6.9 L Phenytoin 12.4 D Microbiology 11/16/17 02:00 Blood - Peripheral Venous Blood Culture - Final NO GROWTH AFTER 5 DAYS INCUBATION 11/16/17 01:41 Blood - Peripheral Venous Blood Culture - Final NO GROWTH AFTER 5 DAYS INCUBATION 11/17/17 17:00 Nasopharyngeal Swab Influenza Types A,B Antigen (MANAN) - Final 11/17/17 17:00 Nasopharyngeal Swab - Final 11/16/17 05:34 Urine - Urine Vaughan Urine Culture - Final NO GROWTH OBTAINED ASSESSMENT AND PLAN: 72 yom with PMHx of GBM s/p surgery/Chemoradiation, Stage I Breast Ca in 2011 ( refused hormonal therapy), HLD admitted with slurred speech/left hemiparesis, found with recurrent GBM now with acute GI haemorrhage and acute blood loss anemia -Acute GI haemorrhage, presentation and history suggestive of diverticular bleed , cannot r/o Upper GI etiology though low suspicion given hemodynamic stability and mentation -Acute blood loss anemia -Recurrent GBM with dysarthria/Left hemiparesis -Fevers, ?Aspiration, CT chest neg for concerns. -Breast Ca, CT A/P neg for mets -HLD Plan: s/p 2 units PRBC, hb stable. GI input appreciated. No plan for EGD/colonoscopy currently. Diet, bowel regimen, outpatient follow up. PPI. Neurology/neurosurgery/oncology/ID input appreciated. Decadron 4 mg TID with outpatient taper. Presentation more likely for diverticular bleed from constipation. Eventual decadron to [address] chest/A/P neg for mets or concerns. Speech/swallow input noted, soft diet with thin liquids and aspiration precautions. Unasyn day 5, CT chest with no infiltrate. D/c antibiotics and monitor. Dilantin repeat levels therapuetic, resume at half dose as discussed with neurology. dispo Plan for D/c to SNF in 24 hours if tolerating diet, h/h stable and no new events. has [facility] appt for 11/23. Total critical care time spent 35 min.
[2017-11-21] MEDS ORDERED: PANTOPRAZOLE SODIUM 40 MG VIAL IVPUSH SCH ×2 (14:45→22:00)
[2017-11-21] MEDS: PHENYTOIN NA EXTENDED 100 MG CAPSULE (FP) PO SCH ×2 (15:25→22:18)
--- NOTE | 2017-11-21 15:26 | PN ---
Progress Note, [employer] - Note Progress Note: Pt in ICU for possible GIB over weekend. Cleared for soft diet/thin liquid. Selected Entries 11/20/17 11/20/17 11/20/17 02:00 06:00 10:00 Breakfast Lunch Temperature 98.7 F 98.4 F 98.3 F 11/20/17 11/20/17 11/20/17 14:00 18:00 22:00 Breakfast Lunch Temperature 98.4 F 98.3 F 97.8 F 11/21/17 11/21/17 11/21/17 02:00 06:00 10:00 Breakfast Lunch Temperature 98.2 F 98.4 F 98.6 F 11/21/17 11/21/17 11/21/17 12:00 13:32 14:10 Breakfast NPO Lunch 100% Temperature 98.4 F Laboratory Tests 11/20/17 11/21/17 05:37 05:45 WBC 4.8 4.6 Tolerated diet well with good appetite.
--- NOTE | 2017-11-21 16:59 | PN ---
Physical Exam: SUBJECTIVE: Patient seen and examined in the ICU. AAOx3. Pt denies fever, chills, headache, chest pain, sob, abdominal pain. No overt bleeding overnight. Pt with 1 episode of melena this afternoon. OBJECTIVE: Vital Signs Period Temp Pulse Resp BP Sys/Levin Pulse Ox Last 24 Hr 97.8 F-98.6 F 70-99 14-18 110-154/57-91 97-97 GENERAL: The patient is awake, alert, and fully oriented, in no acute distress. LUNGS: Breath sounds equal, clear to auscultation bilaterally, no wheezes, no crackles, no accessory muscle use. HEART: Regular rate and rhythm, S1, S2 without murmur, rub or gallop. ABDOMEN: + melena this afternoon x 1. Soft, nontender, nondistended, normoactive bowel sounds, no guarding. EXTREMITIES: Warm, well-perfused, no edema. PSYCH: Normal mood, normal affect. SKIN: Warm, dry, normal turgor, no rashes or lesions noted Laboratory Results - last 24 hr 11/21/17 11/21/17 05:45 05:45 WBC 4.6 RBC 3.39 L Hgb 10.7 Hct 30.2 L MCV 89.0 MCH 31.6 MCHC 35.6 RDW 13.9 Plt Count 134 MPV 6.9 L Phenytoin 12.4 D Active Medications Generic Name Dose Route Start Last Admin Trade Name Freq PRN Reason Stop Dose Admin Acetaminophen 650 mg 11/19/17 19:04 Tylenol - PO Q6H PRN FEVER Atorvastatin Calcium 40 mg 11/19/17 22:00 11/20/17 21:31 Lipitor - PO 40 mg HS LENNY Administration Chlorhexidine Gluconate 1 applic 11/19/17 22:00 11/20/17 21:31 Hibiclens For Decolonization - TP 1 applic HS LENNY Administration Dexamethasone 4 mg 11/21/17 14:00 Decadron - PO TID LENNY Levetiracetam 1,500 mg 11/19/17 22:00 11/21/17 09:04 Keppra Injection - IVPB 1,500 mg BID LENNY Administration Mupirocin 1 applic 11/19/17 10:00 11/21/17 09:05 Bactroban Ointment (For Decolonization) - NS 11/24/17 09:59 1 applic BID LENNY Administration Pantoprazole Sodium 40 mg 11/21/17 14:45 11/21/17 15:25 Protonix Iv IVPUSH 40 mg DAILY LENNY Administration Phenytoin Sodium 100 mg 11/21/17 13:00 11/21/17 15:25 Dilantin - PO 100 mg BID LENNY Administration Polyethylene Glycol 17 gm 11/21/17 12:30 11/21/17 12:38 Miralax (For Daily Use) - PO 17 gm BID LENNY Administration ASSESSMENT/PLAN: 72F with PMH of GBM (s/p surgery 12/2016, s/p chemoRT), remote breast Ca, diverticulitis, presents with slurred speech and increasing Left sided weakness , found to have GIB. # GIB - s/p 2U PRBCs on 11/19/17 - pt with 1 episode of melena this afternoon - GI (Dr. Keenan) recs appreciated: EGD/Colonoscopy if re-bleeds - hgb stable, transfuse for hgb < 7 - continue PPI # GBM - s/p resection 12/2016 - Left hemiparesis and slurred speech improved today - appears to be at baseline - Neurology (Dr. Browne) recs appreciated: Dilantin resumed now that level wnl, continue Keppra - continue po Decadron - Neurosurgery (Dr. Patino) recs appreciated: does not recommend further surgical intervention - Heme/Onc Consult - Palliative Care Consult - continue Lipitor - Neuro checks q2h, aspiration precautions, elevate HOB # FEN - Fluids: NS @ 42 ml/hr - Electrolytes: wnl - Nutrition: regular diet # prophylaxis - DVT ppx with anthony SCDs - GI ppx with Protonix - deconditioning ppx with PT # dispo - Full Code Visit type - Emergency Visit Emergency Visit: Yes ED Registration Date: 11/16/17 Care time: The patient presented to the Emergency Department on the above date and was hospitalized for further evaluation of their emergent condition. - New Patient This patient is new to me today: Yes Date on this admission: 11/21/17 - Critical Care Critical Care patient: Yes Total Critical Care Time (in minutes): 40 Critical Care Statement: The care of this patient involved high complexity decision making to prevent further life threatening deterioration of the patient 's condition and/or to evaluate & treat vital organ system(s) failure or risk of failure.
[2017-11-21] MEDS ORDERED: SODIUM CHLORIDE 1,000 ML IV SCH (17:15)
[2017-11-21] MEDS: DEXAMETHASONE 4 MG TABLET (FP) PO SCH ×2 (18:15→22:21)
[2017-11-21 20:29] LABS: HEMATOCRIT 31.3 % (32.4-45.2); HEMOGLOBIN 10.9 GM/dL (10.7-15.3); MCH 31.2 pg (25.7-33.7); MEAN CELL VOLUME 89.4 fl (80-96); MEAN PLT VOLUME 6.9 fl (7.5-11.1); PLATELET COUNT 146 K/MM3 (134-434); RDW 13.6 % (11.6-15.6); WHITE BLOOD COUNT 5.2 K/mm3 (4.0-10.0)
[2017-11-21 21:10] LABS: INR 1.02 (0.82-1.09); PROTHROMBIN TIME (PATIENT) 11.5 SEC (9.98-11.88)
--- NOTE | 2017-11-21 21:24 | PN ---
Progress Note (short form) - Note Progress Note: S: Per nurse, pt had 2 episodes of stool with a dark red/brown color today, possibly bloody. Pt denies SOB, chest pain, and lethargy. O: GENERAL: The patient is awake, alert, and fully oriented, in no acute distress. LUNGS: CTAB HEART: Regular rate and rhythm, S1, S2 without murmur ABDOMEN: soft, nontender, nondistended EXTREMITIES: Warm, well-perfused, no edema. A&P: possibly melena vs. hematochezia -stat CBC, CBC q6h, IVF, IV protonix, 2 large bore IVs, and NPO ordered -spoke to GI, Dr. Keenan, who said to monitor pt for now, and call again if condition deteriorates -stat CBC showed stable Hgb of 10.9
[2017-11-21] MEDS: ATORVASTATIN CA 40 MG TABLET (FP) PO SCH (22:18)
[2017-11-21] MEDS: PANTOPRAZOLE SODIUM 40 MG VIAL IVPUSH SCH (22:19)
[2017-11-21] MEDS: CHLORHEXIDINE GLUCONATE 4% CLEANSER FOR DECOLONIZATION TP SCH (22:22)
--- NOTE | 2017-11-21 22:30 | PN ---
Progress Note (short form) - Note Progress Note: Seen in follow up. Admitted to ICU following bloody bowel movement, Last Vital Signs Temp Pulse Resp BP Pulse Ox 98.4 F 74 14 148/73 97 11/21/17 14:00 11/21/17 20:00 11/21/17 21:00 11/21/17 20:00 11/21/17 21:00 Cor: RSR, No murmurs, No gallops Lungs: Clear to P&A Abd: Soft, Normal bowel sounds, No organomegaly Ext:No significant edema Abnormal Lab Results 11/21/17 11/21/17 05:45 19:15 RBC 3.39 L 3.50 L Hct 30.2 L 31.3 L MPV 6.9 L 6.9 L On exam: General: Supine in bed, comfortable, cachexic. Extremities: No pallor, no icterus. Chest: breathing comfortably, clear to auscultation CVS: S1, S2, no gallop or murmur. Abdomen: Soft, non-tender. Neuro: Drowsy but rousable, non-focal. Active Medications Generic Name Dose Route Start Last Admin Trade Name Freq PRN Reason Stop Dose Admin Acetaminophen 650 mg 11/19/17 19:04 Tylenol - PO Q6H PRN FEVER Atorvastatin Calcium 40 mg 11/19/17 22:00 11/21/17 22:18 Lipitor - PO 40 mg HS LENNY Administration Chlorhexidine Gluconate 1 applic 11/19/17 22:00 11/21/17 22:22 Hibiclens For Decolonization - TP 1 applic HS LENNY Administration Dexamethasone 4 mg 11/21/17 14:00 11/21/17 22:21 Decadron - PO 4 mg TID LENNY Administration Sodium Chloride 1,000 mls @ 100 mls/hr 11/21/17 17:15 11/21/17 18:16 Normal Saline - IV 100 mls/hr ASDIR LENNY Administration Levetiracetam 1,500 mg 11/19/17 22:00 11/21/17 22:18 Keppra Injection - IVPB 1,500 mg BID LENNY Administration Mupirocin 1 applic 11/19/17 10:00 11/21/17 22:22 Bactroban Ointment (For Decolonization) - NS 11/24/17 09:59 1 applic BID LENNY Administration Pantoprazole Sodium 40 mg 11/21/17 22:00 11/21/17 22:19 Protonix Iv IVPUSH 40 mg BID LENNY Administration Phenytoin Sodium 100 mg 11/21/17 13:00 11/21/17 22:18 Dilantin - PO 100 mg BID LENNY Administration Polyethylene Glycol 17 gm 11/21/17 12:30 11/21/17 22:22 Miralax (For Daily Use) - PO Not Given BID LENNY Assessment. Known GBM, admitted for changed mental status (?subsequently improved), now with significant GI bleed. Gastroenterology following - appears to be stable - suspected diverticuar bleed. advancing diet lt, breast mass family contemplating transfer of care to [facility]
[2017-11-22] MEDS: DEXAMETHASONE 4 MG TABLET (FP) PO SCH (06:19)
[2017-11-22 06:53] LABS: HEMATOCRIT 30.1 % (32.4-45.2); HEMOGLOBIN 10.5 GM/dL (10.7-15.3); MCH 31.3 pg (25.7-33.7); MCHC 35.1 g/dl (32.0-36.0); MEAN CELL VOLUME 89.2 fl (80-96); MEAN PLT VOLUME 6.7 fl (7.5-11.1); PLATELET COUNT 141 K/MM3 (134-434); RBC 3.37 M/mm3 (3.60-5.2); RDW 13.6 % (11.6-15.6); WHITE BLOOD COUNT 4.6 K/mm3 (4.0-10.0)
[2017-11-22 07:38] LABS: ALBUMIN 2.5 g/dl (3.4-5.0); ANION GAP 7 (8-16); BILIRUBIN,TOTAL 0.1 mg/dL (0.2-1.0); BLOOD UREA NITROGEN 10 mg/dL (7-18); CALCIUM 7.9 mg/dL (8.5-10.1); CHLORIDE 107 mmol/L (98-107); CO2 30 mmol/L (21-32); CREATININE 0.4 mg/dL (0.55-1.02); GLUCOSE,RANDOM 99 mg/dL (74-106); MAGNESIUM 1.9 mg/dL (1.8-2.4); PHOSPHOROUS 2.6 mg/dL (2.5-4.9); POTASSIUM 3.4 mmol/L (3.5-5.1); SGOT/AST 27 U/L (15-37); SGPT/ALT 27 U/L (12-78); SODIUM 144 mmol/L (136-145); TOT PROT 5.1 g/dl (6.4-8.2)
[2017-11-22 07:39] LABS: ALK PHOS 97 U/L (45-117)
--- NOTE | 2017-11-22 08:02 | PN ---
Progress Note, Physician History of Present Illness: Hematochezia noted last evening. No hemodynamic changes, or distress, reported. Hgb levels last night and this evening are the same. - Current Medication List Current Medications: Active Medications Acetaminophen (Tylenol -) 650 mg PO Q6H PRN PRN Reason: FEVER Atorvastatin Calcium (Lipitor -) 40 mg PO HS [facility] Last Admin: 11/21/17 22:18 Dose: 40 mg Chlorhexidine Gluconate (Hibiclens For Decolonization -) 1 applic TP HS [facility] Last Admin: 11/21/17 22:22 Dose: 1 applic Dexamethasone (Decadron -) 4 mg PO TID [facility] Last Admin: 11/22/17 06:19 Dose: 4 mg Sodium Chloride (Normal Saline -) 1,000 mls @ 100 mls/hr IV ASDIR [facility] Last Admin: 11/21/17 18:16 Dose: 100 mls/hr Levetiracetam (Keppra Injection -) 1,500 mg IVPB BID [facility] Last Admin: 11/21/17 22:18 Dose: 1,500 mg Mupirocin (Bactroban Ointment (For Decolonization) -) 1 applic NS BID [facility] Stop: 11/24/17 09:59 Last Admin: 11/21/17 22:22 Dose: 1 applic Pantoprazole Sodium (Protonix Iv) 40 mg IVPUSH BID [facility] Last Admin: 11/21/17 22:19 Dose: 40 mg Phenytoin Sodium (Dilantin -) 100 mg PO BID [facility] Last Admin: 11/21/17 22:18 Dose: 100 mg Polyethylene Glycol (Miralax (For Daily Use) -) 17 gm PO BID [facility] Last Admin: 11/21/17 22:22 Dose: Not Given - Objective Vital Signs: Vital Signs Temperature 98.4 F 11/22/17 06:00 Pulse Rate 72 11/22/17 06:00 Respiratory Rate 16 11/22/17 06:00 Blood Pressure 113/93 11/22/17 06:00 O2 Sat by Pulse Oximetry (%) 97 11/21/17 21:00 Constitutional: Yes: No Distress, Calm Gastrointestinal: Yes: Soft. No: Distention, Tenderness, Tenderness, Rebound, Vomiting Labs: CBC, BMP 11/22/17 06:30 11/22/17 06:00 INR, PTT INR 1.02 (0.82-1.09) 11/21/17 19:30 Problem List - Problems (1) Diverticulosis large intestine w/o perforation or abscess w/bleeding Code(s): K57.31 - DVRTCLOS OF LG INT W/O PERFORATION OR ABSCESS W BLEEDING (2) GI bleed Code(s): K92.2 - GASTROINTESTINAL HEMORRHAGE, UNSPECIFIED Assessment/Plan Diverticular bleeding with stable Hgb and vital signs Clear liquid diet CBC/PT/INR ordered Observe
--- NOTE | 2017-11-22 08:21 | PN ---
Progress Note (short form) - Note Progress Note: NEUROSURGERY In ICU Mild H/A One episode of melena PE: Tmax 98.8, AF, VSS Not in acute distress; comfortable; following commands HEENT- NC/AT; Neck- supple; Cor- RR; Lungs- CTA B; Abd- benign; Ext- no sign of DVT CN- intact except minimal L facial assymmetry and L tongue deviation; Motor- dense L hemiparesis 3/5 L hand , 1/5 prox L UE, L LE 3/5; Sensation- grossly intact; DTR-1+ Extensive recurrent/persistent R lateral frontal GBM Cont keppra On PO decadron TID and taper to 4 mg bid On Unasyn per ID GI f/u Pt has appointment with [facility]
--- NOTE | 2017-11-22 08:51 | PN ---
Physical Exam: SUBJECTIVE: Patient seen and examined OBJECTIVE: Vital Signs Period Temp Pulse Resp BP Sys/Levin Pulse Ox Last 24 Hr 98.4 F-99 F 66-99 14-18 113-151/54-93 97-97 GENERAL: The patient is awake, alert, and fully oriented, in no acute distress. HEAD: Normal with no signs of trauma. EYES: PERRL, extraocular movements intact, sclera anicteric, conjunctiva clear. No ptosis. ENT: Ears normal, nares patent, oropharynx clear without exudates, moist mucous membranes. NECK: Trachea midline, full range of motion, supple. LUNGS: Breath sounds equal, clear to auscultation bilaterally, no wheezes, no crackles, no accessory muscle use. HEART: Regular rate and rhythm, S1, S2 without murmur, rub or gallop. ABDOMEN: Soft, nontender, nondistended, normoactive bowel sounds, no guarding, no rebound, no hepatosplenomegaly, no masses. EXTREMITIES: 2+ pulses, warm, well-perfused, no edema. NEUROLOGICAL: Cranial nerves II through XII grossly intact. Normal speech, gait not observed. PSYCH: Normal mood, normal affect. SKIN: Warm, dry, normal turgor, no rashes or lesions noted Laboratory Results - last 24 hr 11/19/17 11/19/17 11/21/17 02:00 03:00 19:15 WBC 5.2 RBC 3.50 L Hgb 10.9 Hct 31.3 L MCV 89.4 MCH 31.2 MCHC 35.0 RDW 13.6 Plt Count 146 MPV 6.9 L PT with INR INR Sodium Potassium Chloride Carbon Dioxide Anion Gap BUN Creatinine Creat Clearance w eGFR Random Glucose Calcium Phosphorus Magnesium Total Bilirubin AST ALT Alkaline Phosphatase Total Protein Albumin Blood Type O POSITIVE O POSITIVE Antibody Screen Negative Negative Crossmatch See Detail See Detail 11/21/17 11/22/17 11/22/17 19:30 06:00 06:30 WBC 4.6 RBC 3.37 L Hgb 10.5 L Hct 30.1 L MCV 89.2 MCH 31.3 MCHC 35.1 RDW 13.6 Plt Count 141 MPV 6.7 L PT with INR 11.50 INR 1.02 Sodium 144 Potassium 3.4 L Chloride 107 Carbon Dioxide 30 Anion Gap 7 L BUN 10 Creatinine 0.4 L Creat Clearance w eGFR > 60 Random Glucose 99 Calcium 7.9 L Phosphorus 2.6 Magnesium 1.9 Total Bilirubin 0.1 L D AST 27 ALT 27 Alkaline Phosphatase 97 Total Protein 5.1 L Albumin 2.5 L Blood Type Antibody Screen Crossmatch Active Medications Generic Name Dose Route Start Last Admin Trade Name Freq PRN Reason Stop Dose Admin Acetaminophen 650 mg 11/19/17 19:04 Tylenol - PO Q6H PRN FEVER Atorvastatin Calcium 40 mg 11/19/17 22:00 11/21/17 22:18 Lipitor - PO 40 mg HS LENNY Administration Chlorhexidine Gluconate 1 applic 11/19/17 22:00 11/21/17 22:22 Hibiclens For Decolonization - TP 1 applic HS LENNY Administration Dexamethasone 4 mg 11/22/17 10:00 Decadron - PO BID LENNY Sodium Chloride 1,000 mls @ 100 mls/hr 11/21/17 17:15 11/21/17 18:16 Normal Saline - IV 100 mls/hr ASDIR LENNY Administration Levetiracetam 1,500 mg 11/19/17 22:00 11/21/17 22:18 Keppra Injection - IVPB 1,500 mg BID LENNY Administration Mupirocin 1 applic 11/19/17 10:00 11/21/17 22:22 Bactroban Ointment (For Decolonization) - NS 11/24/17 09:59 1 applic BID LENNY Administration Pantoprazole Sodium 40 mg 11/21/17 22:00 11/21/17 22:19 Protonix Iv IVPUSH 40 mg BID LENNY Administration Phenytoin Sodium 100 mg 11/21/17 13:00 11/21/17 22:18 Dilantin - PO 100 mg BID LENNY Administration Polyethylene Glycol 17 gm 11/21/17 12:30 11/21/17 22:22 Miralax (For Daily Use) - PO Not Given BID [facility] ASSESSMENT/PLAN:
[2017-11-22] MEDS: levETIRAcetam 500 MG/5 ML INJECTION VIAL IVPB SCH (09:33)
[2017-11-22] MEDS: PHENYTOIN NA EXTENDED 100 MG CAPSULE (FP) PO SCH (09:33)
[2017-11-22] MEDS: POLYETHYLENE GLYCOL 3350 119 GM BTL PO SCH (09:34)
[2017-11-22] MEDS: PANTOPRAZOLE SODIUM 40 MG VIAL IVPUSH SCH (09:34)
[2017-11-22] MEDS: MUPIROCIN 2% TOPICAL OINTMENT FOR DECOLONIZATION NS SCH (09:34)
[2017-11-22] MEDS ORDERED: POTASSIUM CHLORIDE ORAL LIQUID 20 MEQ/15 ML PO ONE (09:45)
[2017-11-22] MEDS ORDERED: DEXAMETHASONE 4 MG TABLET (FP) PO SCH (10:00)
[2017-11-22 11:53] LABS: HEMATOCRIT 32.9 % (32.4-45.2); HEMOGLOBIN 11.5 GM/dL (10.7-15.3); MCH 31.3 pg (25.7-33.7); MEAN CELL VOLUME 89.4 fl (80-96); MEAN PLT VOLUME 6.9 fl (7.5-11.1); PLATELET COUNT 151 K/MM3 (134-434); RBC 3.68 M/mm3 (3.60-5.2); RDW 13.7 % (11.6-15.6); WHITE BLOOD COUNT 5.4 K/mm3 (4.0-10.0)
--- NOTE | 2017-11-22 13:32 | PN ---
Teaching Attending Note Name of Resident: Alberta Garcia ATTENDING PHYSICIAN STATEMENT I saw and evaluated the patient. I reviewed the resident's note and discussed the case with the resident. I agree with the resident's findings and plan as documented. SUBJECTIVE:weakness slightly improved but does not have full strength. several episode of BRBPR reported by RN. denies Cp, SOB< fever, chills, N/V/C/D OBJECTIVE: Last Vital Signs Temp Pulse Resp BP Pulse Ox 98.2 F 74 16 135/67 97 11/22/17 10:00 11/22/17 12:00 11/22/17 12:00 11/22/17 12:00 11/22/17 09:00 General NAD CV S1 S2 RRR no murmur/rub/gallop Lungs CTA B/L no wheezing/rales/rhonchi Neuro L tongue deviation, LUE 3/5 LLE 2/5. RUE/RLE 5/5 sensation slightly decreased LUE/LLE ASSESSMENT AND PLAN: 72yo F wtih PMH GBM s/p surgery/Chemoradiation, Stage I Breast Ca in 2011 ( refused hormonal therapy), HLD admitted with slurred speech/left hemiparesis, found with recurrent GBM now with acute GI haemorrhage and acute blood loss anemia 1. Acute GI bleed- likely diverticular bleed. last colonoscopy showed bleed. s/ p 2 units PRBC with good response. Holding off on colonoscopy at this time given hemodynamically stable and risks assoc with procedure. tolerating regular diet. cont PPI especially while on dex 2. L hemiparesis and dysarthria- due to frontal GBM. stable. on dex taper, keppra an dilantin for prophylaxis. will need close monitoring with oncologist. plan to f/u wt [facility] once leaves [facility]. plan for discharge to [facility] 3. Fevers- resolved. possible aspiration. completed 5 days of unasyn. monitor off abx 4. breast ca 5. dyslipidemia- statin 6. DVT ppx- would hold iwth GI bleed 7. d/c to [facility] for [facility]. spoke with daughter present at bedside. advised should have labs repeated in 1 week. will f/u with [facility]. The care of this patient involved high complexity decision making to prevent further life threatening deterioration of the patient's condition and/or to evaluate & treat vital organ system(s) failure or risk of failure. 38 minutes
[2017-11-22 13:34] VITALS: PULSE 76; TEMP 97.6
[2017-11-22 13:39] VITALS: BP 127/59
--- NOTE | 2017-11-22 14:25 | PN ---
Teaching Attending Note Name of Resident: Felisha Cuenca ATTENDING PHYSICIAN STATEMENT I saw and evaluated the patient. I reviewed the resident's note and discussed the case with the resident. I agree with the resident's findings and plan as documented. SUBJECTIVE: Patient seen and examined in the ICU. Awake and responsive. No further bleeding overnight. No abdominal symptoms. Intake & Output 11/19/17 11/20/17 11/21/17 11/22/17 23:59 23:59 23:59 23:59 Intake Total 2814 1398 1502 1060 Output Total 500 300 Balance 2314 1098 1502 1060 Weight 116 lb 116 lb 6.465 oz 118 lb 2.684 oz Last Vital Signs Temp Pulse Resp BP Pulse Ox 97.6 F 76 16 127/59 97 11/22/17 13:33 11/22/17 13:33 11/22/17 13:33 11/22/17 13:33 11/22/17 09:00 Active Medications Acetaminophen (Tylenol -) 650 mg PO Q6H PRN PRN Reason: FEVER Atorvastatin Calcium (Lipitor -) 40 mg PO HS [facility] Last Admin: 11/21/17 22:18 Dose: 40 mg Chlorhexidine Gluconate (Hibiclens For Decolonization -) 1 applic TP HS [facility] Last Admin: 11/21/17 22:22 Dose: 1 applic Dexamethasone (Decadron -) 4 mg PO BID [facility] Last Admin: 11/22/17 09:38 Dose: 4 mg Sodium Chloride (Normal Saline -) 1,000 mls @ 100 mls/hr IV ASDIR [facility] Last Admin: 11/21/17 18:16 Dose: 100 mls/hr Levetiracetam (Keppra Injection -) 1,500 mg IVPB BID [facility] Last Admin: 11/22/17 09:33 Dose: 1,500 mg Mupirocin (Bactroban Ointment (For Decolonization) -) 1 applic NS BID [facility] Stop: 11/24/17 09:59 Last Admin: 11/22/17 09:34 Dose: 1 applic Pantoprazole Sodium (Protonix Iv) 40 mg IVPUSH BID [facility] Last Admin: 11/22/17 09:34 Dose: 40 mg Phenytoin Sodium (Dilantin -) 100 mg PO BID [facility] Last Admin: 11/22/17 09:33 Dose: 100 mg Polyethylene Glycol (Miralax (For Daily Use) -) 17 gm PO BID [facility] Last Admin: 11/22/17 09:34 Dose: Not Given Constitutional: Yes: No Distress, Thin Eyes: Yes: Conjunctiva Clear, EOM Intact. No: Sclera Icterus HENT: No: Epistaxis Neck: Yes: Supple, Thyromegaly Cardiovascular: Yes: Regular Rate and Rhythm Respiratory: Yes: CTA Bilaterally. No: Accessory Muscle Use Gastrointestinal: Yes: Normal Bowel Sounds, Soft, Rectal Bleeding. No: Ascites , Pulsatile Mass, Tenderness, Tenderness, Epigastrium, Tenderness, Rebound, Vomiting Renal/: Yes: WNL Musculoskeletal: Yes: WNL Extremities: Yes: WNL Edema: No Peripheral Pulses WNL: Yes Integumentary: Yes: WNL Neurological: Yes: Alert ...Motor Strength: WNL Psychiatric: Yes: Alert Labs: Laboratory Results - last 24 hr 11/19/17 11/19/17 11/21/17 02:00 03:00 19:15 WBC 5.2 RBC 3.50 L Hgb 10.9 Hct 31.3 L MCV 89.4 MCH 31.2 MCHC 35.0 RDW 13.6 Plt Count 146 MPV 6.9 L PT with INR INR Sodium Potassium Chloride Carbon Dioxide Anion Gap BUN Creatinine Creat Clearance w eGFR Random Glucose Calcium Phosphorus Magnesium Total Bilirubin AST ALT Alkaline Phosphatase Total Protein Albumin Blood Type O POSITIVE O POSITIVE Antibody Screen Negative Negative Crossmatch See Detail See Detail 11/21/17 11/22/17 11/22/17 19:30 06:00 06:30 WBC 4.6 RBC 3.37 L Hgb 10.5 L Hct 30.1 L MCV 89.2 MCH 31.3 MCHC 35.1 RDW 13.6 Plt Count 141 MPV 6.7 L PT with INR 11.50 INR 1.02 Sodium 144 Potassium 3.4 L Chloride 107 Carbon Dioxide 30 Anion Gap 7 L BUN 10 Creatinine 0.4 L Creat Clearance w eGFR > 60 Random Glucose 99 Calcium 7.9 L Phosphorus 2.6 Magnesium 1.9 Total Bilirubin 0.1 L D AST 27 ALT 27 Alkaline Phosphatase 97 Total Protein 5.1 L Albumin 2.5 L Blood Type Antibody Screen Crossmatch 11/22/17 11:22 WBC 5.4 RBC 3.68 Hgb 11.5 Hct 32.9 MCV 89.4 MCH 31.3 MCHC 35.0 RDW 13.7 Plt Count 151 MPV 6.9 L PT with INR INR Sodium Potassium Chloride Carbon Dioxide Anion Gap BUN Creatinine Creat Clearance w eGFR Random Glucose Calcium Phosphorus Magnesium Total Bilirubin AST ALT Alkaline Phosphatase Total Protein Albumin Blood Type Antibody Screen Crossmatch Assessment/Plan Brain malignant neoplasm Breast mass in female Cerebrovascular accident (Acute) Left hemiparesis (Acute) Acute GI Bleed Normal transfusion thresholds SCDs Decadron D/C planning Dr Alba
--- NOTE | 2017-11-22 15:44 | PN ---
Physical Exam: SUBJECTIVE: Patient seen and examined in the ICU. AAOx3. Pt denies fever, chills, headache, chest pain, sob, abdominal pain. No more bloody bowel movements since yesterday afternoon. OBJECTIVE: Vital Signs Period Temp Pulse Resp BP Sys/Levin Pulse Ox Last 24 Hr 97.6 F-99 F 66-80 14-18 113-148/53-93 97-97 GENERAL: The patient is awake, alert, and fully oriented, in no acute distress. LUNGS: Breath sounds equal, clear to auscultation bilaterally, no wheezes, no crackles, no accessory muscle use. HEART: Regular rate and rhythm, S1, S2 without murmur, rub or gallop. ABDOMEN: Soft, nontender, nondistended, normoactive bowel sounds, no guarding. EXTREMITIES: Warm, well-perfused, no edema. PSYCH: Normal mood, normal affect. SKIN: Warm, dry, normal turgor, no rashes or lesions noted Laboratory Results - last 24 hr 11/19/17 11/19/17 11/21/17 02:00 03:00 19:15 WBC 5.2 RBC 3.50 L Hgb 10.9 Hct 31.3 L MCV 89.4 MCH 31.2 MCHC 35.0 RDW 13.6 Plt Count 146 MPV 6.9 L PT with INR INR Sodium Potassium Chloride Carbon Dioxide Anion Gap BUN Creatinine Creat Clearance w eGFR Random Glucose Calcium Phosphorus Magnesium Total Bilirubin AST ALT Alkaline Phosphatase Total Protein Albumin Blood Type O POSITIVE O POSITIVE Antibody Screen Negative Negative Crossmatch See Detail See Detail 11/21/17 11/22/17 11/22/17 19:30 06:00 06:30 WBC 4.6 RBC 3.37 L Hgb 10.5 L Hct 30.1 L MCV 89.2 MCH 31.3 MCHC 35.1 RDW 13.6 Plt Count 141 MPV 6.7 L PT with INR 11.50 INR 1.02 Sodium 144 Potassium 3.4 L Chloride 107 Carbon Dioxide 30 Anion Gap 7 L BUN 10 Creatinine 0.4 L Creat Clearance w eGFR > 60 Random Glucose 99 Calcium 7.9 L Phosphorus 2.6 Magnesium 1.9 Total Bilirubin 0.1 L D AST 27 ALT 27 Alkaline Phosphatase 97 Total Protein 5.1 L Albumin 2.5 L Blood Type Antibody Screen Crossmatch 11/22/17 11:22 WBC 5.4 RBC 3.68 Hgb 11.5 Hct 32.9 MCV 89.4 MCH 31.3 MCHC 35.0 RDW 13.7 Plt Count 151 MPV 6.9 L PT with INR INR Sodium Potassium Chloride Carbon Dioxide Anion Gap BUN Creatinine Creat Clearance w eGFR Random Glucose Calcium Phosphorus Magnesium Total Bilirubin AST ALT Alkaline Phosphatase Total Protein Albumin Blood Type Antibody Screen Crossmatch ASSESSMENT/PLAN: 72F with PMH of GBM (s/p surgery 12/2016, s/p chemoRT), remote breast Ca, diverticulitis, presents with slurred speech and increasing Left sided weakness , found to have GIB. # GIB - s/p 2U PRBCs on 11/19/17 - no further bloody bowel movements since yesterday afternoon - GI (Dr. Keenan) recs appreciated: likely diverticular bleeding with stable hgb - hgb stable, transfuse for hgb < 7 - continue PPI # GBM - s/p resection 12/2016 - appears to be at baseline - Neurology (Dr. Browne) recs appreciated: continue Keppra and Dilantin - po Decadron decreased to BID - Neurosurgery (Dr. Patino) recs appreciated: does not recommend further surgical intervention - continue Lipitor - Neuro checks q2h, aspiration precautions, elevate HOB # FEN - Fluids: NS @ 100 ml/hr - Electrolytes: hypokalemia repleted with KCl 20meq liquid - Nutrition: clear liquids diet # prophylaxis - DVT ppx with anthony SCDs - GI ppx with Protonix - deconditioning ppx with PT # dispo - Full Code - Pt stable for discharge to [facility]. Visit type - Emergency Visit Emergency Visit: Yes ED Registration Date: 11/16/17 Care time: The patient presented to the Emergency Department on the above date and was hospitalized for further evaluation of their emergent condition. - New Patient This patient is new to me today: No - Critical Care Critical Care patient: Yes Total Critical Care Time (in minutes): 35 Critical Care Statement: The care of this patient involved high complexity decision making to prevent further life threatening deterioration of the patient 's condition and/or to evaluate & treat vital organ system(s) failure or risk of failure.
--- NOTE | 2017-11-22 22:40 | DS ---
Physical Exam: SUBJECTIVE: Patient seen and examined OBJECTIVE: Vital Signs Period Temp Pulse Resp BP Sys/Levin Pulse Ox Last 24 Hr 97.6 F-98.8 F 67-76 16-16 113-146/53-93 97 PHYSICAL EXAM GENERAL: The patient is awake, alert, and fully oriented, in no acute distress. HEAD: Normal with no signs of trauma. EYES: PERRL, extraocular movements intact, sclera anicteric, conjunctiva clear. ENT: Ears normal, nares patent, oropharynx clear without exudates, moist mucous membranes. NECK: Trachea midline, full range of motion, supple. LUNGS: Breath sounds equal, clear to auscultation bilaterally, no wheezes, no crackles, no accessory muscle use. HEART: Regular rate and rhythm, S1, S2 without murmur, rub or gallop. ABDOMEN: Soft, nontender, nondistended, normoactive bowel sounds, no guarding, no rebound, no hepatosplenomegaly, no masses. EXTREMITIES: 2+ pulses, warm, well-perfused, no edema. NEUROLOGICAL: Cranial nerves II through XII grossly intact. Normal speech, gait not observed. PSYCH: Normal mood, normal affect. SKIN: Warm, dry, normal turgor, no rashes or lesions noted. LABS Laboratory Results - last 24 hr 11/19/17 11/19/17 11/22/17 02:00 03:00 06:00 WBC RBC Hgb Hct MCV MCH MCHC RDW Plt Count MPV Sodium 144 Potassium 3.4 L Chloride 107 Carbon Dioxide 30 Anion Gap 7 L BUN 10 Creatinine 0.4 L Creat Clearance w eGFR > 60 Random Glucose 99 Calcium 7.9 L Phosphorus 2.6 Magnesium 1.9 Total Bilirubin 0.1 L D AST 27 ALT 27 Alkaline Phosphatase 97 Total Protein 5.1 L Albumin 2.5 L Blood Type O POSITIVE O POSITIVE Antibody Screen Negative Negative Crossmatch See Detail See Detail 11/22/17 11/22/17 06:30 11:22 WBC 4.6 5.4 RBC 3.37 L 3.68 Hgb 10.5 L 11.5 Hct 30.1 L 32.9 MCV 89.2 89.4 MCH 31.3 31.3 MCHC 35.1 35.0 RDW 13.6 13.7 Plt Count 141 151 MPV 6.7 L 6.9 L Sodium Potassium Chloride Carbon Dioxide Anion Gap BUN Creatinine Creat Clearance w eGFR Random Glucose Calcium Phosphorus Magnesium Total Bilirubin AST ALT Alkaline Phosphatase Total Protein Albumin Blood Type Antibody Screen Crossmatch HOSPITAL COURSE: Date of Admission:11/16/17 Date of Discharge: 11/22/17 Discharge Summary Reason For Visit: CVA (SROKE BED) Condition: Stable - Instructions Diet, Activity, Other Instructions: You were admitted to the hospital for worsening left sided weakness and slurring of your speech. You were treated with steroids and anti-seizure medications. You also had bleed in your intestinal track likely related to your diverticulitis. You received 2 units of blood, and your counts have been stable. We discussed with you and your daughter about doing an endoscopy and colonoscopy, but the consensus was to be conservative and observe you for further bleeds. Recommendations: -Follow a regular soft diet with thin liquids. You should be sitting upright while eating. -Follow physical therapy directions for activity and daily exercises to get your strength back. Medications: You may resume your regular home medications with the following changes: -Take Dexamethasone (a steroid) 4mg two times per day. It is very important not to abruptly stop this medication. Discuss with the physicians at [facility] [place] [place] when to taper this medication. -Take Keppra 1500mg by mouth twice per day (12hours apart). -Take Dilantin 100mg twice per day (twice per day). -Take Protonix 40mg once daily. -Take Miralax 17gm twice per day for constipation. If you have more than 2 large bowel movements in a single day, stop taking this medication. The goal is to avoid constipation and have 1 bowel movement per day. Follow-up: -You were having bleeding in your intestinal track. You should have your CBC checked in 1-2 days to see if your blood counts are stable. -You have an appointment on 11/23 at [facility] [place] [place]. Please bring the CDs of images provided to the appointment. -Please follow-up with a pelvic ultrasound to further evaluate your uterus. Please return to the Emergency Department if you are passing bloody stools, dark tarry stools, or have new, worsening, or concerning symptoms. Referrals: Magen Rodriguez PA [Primary Care Provider] - Wilfred Browne DO [Staff Physician] - Gutierrez Keenan MD [Staff Physician] - Disposition: TRANSFER ACUTE CARE/OTHER HOSP - Home Medications Comprehensive Discharge Medication List: Ambulatory Orders levETIRAcetam [Keppra -] 1,500 mg PO BID 11/16/17 Atorvastatin Ca [Lipitor] 40 mg PO HS tablet 11/22/17 Dexamethasone [Decadron -] 4 mg PO BID #28 tablet 11/22/17 Pantoprazole Sodium [Protonix] 40 mg PO DAILY #30 tablet. 11/22/17 Phenytoin Na Extended [Dilantin -] 100 mg PO BID #60 capsule 11/22/17 Polyethylene Glycol 3350 [Miralax 119 gm Btl -] 17 gm PO BID #1 bottle 11/22/17 - Discharge Referral Physician Referral: Paul Rowell MD (Int Med)
== END 2017-11-22 14:50 | DRG 54 ==
LOC: JER 01:45 → JERBED 04:20 → UNDOADMIN 06:20 → J4W 09:20 → J8W 11-18 20:24 → JICU 11-19 07:50
PROVIDERS: ADMIT Internal Medicine; ATTEND Internal Medicine
PROC: 30233N1 Transfusion of Nonautologous Red Blood Cells into Peripheral Vein, Percutaneous Approach (ICD-10-PCS; principal; 2017-11-19)
DX: C79.31 Secondary malignant neoplasm of brain (principal); K57.31 Diverticulosis of large intestine without perforation or abscess with bleeding; G93.6 Cerebral edema; I63.9 Cerebral infarction, unspecified; I69.354 Hemiplegia and hemiparesis following cerebral infarction affecting left non-dominant side; D62 Acute posthemorrhagic anemia; C50.912 Malignant neoplasm of unspecified site of left female breast; E78.5 Hyperlipidemia, unspecified; I10 Essential (primary) hypertension; K63.5 Polyp of colon; R50.9 Fever, unspecified; K59.09 Other constipation; Z79.52 Long term (current) use of systemic steroids
CPT/HCPCS: 36415; 36430; 70450-TC; 70553-TC; 71045-TC-FY; 71260-TC; 74177-TC; 74230-TC-FY; 80048; 80053; 80185; 81003; 82465; 82550; 82607; 82962; 83036; 83605; 83718; 83721; 83735; 84100; 84443; 84478; 84484; 85025; 85027; 85610; 85651; 85730; 86850; 86900; 86901; 86922; 87040; 87086; 87804; 90670; 92611-GN; 93005; 93010; 93306-TC; 93880-TC; 97162-GP; 99285-25; J0131; J7030; P9038; P9058